=== PATIENT | female | born 1940 | race Caucasian/White ===

== ENCOUNTER 2019-03-17 11:02 | Inpatient (IN) ==
--- NOTE | 2019-03-17 11:21 | Emergency Department Note ---
Entered by Loreto West acting as a scribe for Hunter Brizuela MD History of Present Illness General Chief complaint: Shortness of Breath/Dyspnea Stated complaint: fall/ R knee pain Time Seen by Provider: 03/17/19 11:03 Source: patient Mode of arrival: EMS Limitations: no limitations History of Present Illness Provider complaint: fall Onset (ago): minute(s) Location: lower extremity and right Associated symptoms: + denies other symptoms (-congestion, -neck pain, -back pain), + shortness of breath and + other (+right leg pain); no cough The patient is a 78 year old female who presents to the Emergency Room with co mplaints of a fall that occurred just prior to arrival. Per EMS, the patient was down for approximately 10-15 minutes. The patient states that she slipped in the shower and fell and states that she twisted her right leg and could not get up on her own. The patient denies hitting her head or syncope during her fall. The patient states that she has right leg pain and shortness of breath. The patient denies any cough, congestion, neck pain, or back pain. The patient states that she has been feeling like her normal self prior to today. The patient states that she uses a walker at home. Per EMS, the patient was at 81% on room air when they arrived and got the patient up to 95% on 4L of oxygen on the way to the ED. The patient states that she does not normally wear oxygen at home. The patient denies taking any water pills or blood thinners. The patient states that she has a history of a heart attack and states that she has a defibrillator and stents. The patient also states that she has a history of colon cancer. 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 in place (Chronic) Colon cancer (Chronic) Coronary artery disease (Chronic) History of hypertension (Chronic) Cerebrovascular disease (Chronic) "stroke years ago, no residual symptoms" Surgical History Status post cholecystectomy (Chronic) Status post appendectomy (Chronic) Status post bilateral oophorectomy (Chronic) Status post partial resection of colon (Chronic) Status post coronary artery stent placement (Chronic) Status post implantation of automatic cardioverter/defibrillator (AICD) (Chr onic) Family History Other Family history unknown Social History Preferred Language: Nepalese Communication Ability: Effective Manager Aviation Required: No Beliefs That Will Affect Care: None Current Living Situation: Spouse Other Information That Helps Us Care for You: No Feels Safe at Home: Yes Safety Concerns: Feels Safe At This Time Smoking Status: Former smoker Number of Years Since Quit: 30 Hx Alcohol Use: No Hx Substance Use: No Review of Systems See HPI for pertinent positives & negatives. and A total of 10 systems reviewed and were otherwise negative Physical Exam Vital Signs Vital Signs - 24 hr 03/17/19 11:02 03/17/19 11:03 03/17/19 11:53 Temperature 36.4 C L Temperature Source Oral Sepsis Recent Fever Within 48 Hours No Sepsis Action Taken by Nursing No Action Required Pulse Rate 82 Pulse Rate [Right Finger] Respiratory Rate 20 Respiratory Effort / Characteristics Non-Labored Non-Labored Respiratory Depth Normal Respiratory Pattern Regular Blood Pressure 170/84 H Blood Pressure [Right Arm] Blood Pressure Mean 112 Blood Pressure Mean [Right Arm] Pulse Oximetry 81 L 81 L Oxygen Delivery Method Room Air Nasal Cannula Nasal Cannula Oxygen Flow Rate 4 4 03/17/19 12:09 03/17/19 14:05 03/17/19 15:43 Temperature Temperature Source Sepsis Recent Fever Within 48 Hours Sepsis Action Taken by Nursing Pulse Rate Pulse Rate [Right Finger] 78 82 80 Respiratory Rate 20 20 20 Respiratory Effort / Characteristics Non-Labored Non-Labored Respiratory Depth Normal Normal Respiratory Pattern Blood Pressure Blood Pressure [Right Arm] 139/98 Blood Pressure Mean Blood Pressure Mean [Right Arm] 111 Pulse Oximetry 98 95 97 Oxygen Delivery Method Nasal Cannula Room Air Room Air Oxygen Flow Rate 4 GENERAL: Awake, alert, uncomfortable appearing, BMI: 48.4kg/m. HENT: Normocephalic, atraumatic. TM's normal. Oropharynx unremarkable. EYES: PERRL. EOMI. Normal conjunctiva. Sclera non-icteric. NECK: Supple. No nuchal rigidity. FROM. No JVD or bruit. RESPIRATORY: Diminished breath sounds at bases, otherwise clear. CARDIAC: RRR. No murmur. ABDOMEN: Soft, non distended. No tenderness to palpation. No rebound or guarding. No masses. RECTAL: Deferred. MUSCULOSKELETAL: Unremarkable. No edema. No discoloration. Gross motor strength symmetric. LOWER EXTREMITIES: Tenderness to the right medial thigh, ROM limited secondary to pain. Left leg pain with passive ROM distal. Distal PMS BLE intact. NEURO: Normal sensorium. No sensory or motor deficits noted. SKIN: No rash or jaundice noted. LYMPH: No adenopathy. Course 1106: The patient was evaluated in room C7, and a complete history and physical examination were performed. 1320: I checked on the patient and updated her on her results. 1530: I reviewed the patient's case with Joann Pedro who will evaluate the patient for further hospitalization.. 1540: I discussed the patient's case with Dr. Mustafa - Orthopedic Surgery at [facility]. Dr. Mustafa is aware of the patient's results. Consultations Consultation #1: Joann Pedro Time: 15:30 Consultation #2: Dr. Mustafa - Orthopedic Surgery at [facility] Time: 15:40 Administered Medications Hydromorphone HCl (Dilaudid) 2 mg IV Q4 PRN PRN Reason: Pain Stop: 03/31/19 15:47 Last Admin: 03/17/19 19:21 Dose: 2 mg Documented by: [id number] Ioversol (Optiray 320 100ml) 94 ml IV ONCE PRN PRN Reason: Interaction Checking Stop: 03/21/19 14:25 Last Admin: 03/17/19 14:26 Dose: 94 ml Documented by: [id number] Discontinued Medications Lactated Ringer's (Lr) 1,000 mls @ 80 mls/hr IV .[id number] SAM Stop: 04/16/19 15:59 Last Infusion: 03/17/19 20:41 Dose: 0 mls/hr Documented by: [id number] Infusion: 03/17/19 19:29 Dose: 0 mls/hr Documented by: [id number] Admin: 03/17/19 18:07 Dose: 80 mls/hr Documented by: [id number] Medical Decision Making Differential Diagnosis Differential diagnoses include but are not limited to: fracture, dislocation, contusion, strain, ligamentous injury, tendon rupture, and septic joint. Medical Records Attestation: I reviewed the patient's medical records. Home Medications Current Medication List: was personally reviewed by me Laboratory Data Attestation: I reviewed the patient's lab results. Result diagrams: 03/17/19 11:58 03/17/19 11:58 Lab Results 03/17/19 03/17/19 03/17/19 Range/Units 11:58 11:58 11:58 WBC 11.84 H (4.8-10.8) K/uL RBC 4.27 (4.2-5.4) M/uL Hgb 12.8 (12.0-16.0) g/dL Hct 37.5 (37-47) % MCV 87.8 (80-100) fL MCH 30.0 (25-34) pg MCHC 34.1 (32-36) g/dL RDW Std Deviation 48.9 H (36.4-46.3) fL RDW Coeff of Johanne 15.3 H (11.5-14.5) % Plt Count 174 (130-400) K/uL MPV 10.1 (7.4-10.4) fL Immature Gran % (Auto) 0.8 % Neut % (Auto) 88.9 % Lymph % (Auto) 4.0 % [place] % (Auto) 5.6 % Eos % (Auto) 0.5 % Baso % (Auto) 0.2 % Immature Gran # (Auto) 0.10 H (0.00-0.02) K/uL Neut # (Auto) 10.53 H (1.4-6.5) K/uL Lymph # (Auto) 0.47 L (1.2-3.4) K/uL [place] # (Auto) 0.66 H (0.11-0.59) K/uL Eos # (Auto) 0.06 (0-0.5) K/uL Baso # (Auto) 0.02 (0-0.2) K/uL Absolute Nucleated RBC 0.11 H (0-0) K/uL Nucleated RBC % (auto) 0.9 % PT 10.1 (9.0-12.0) Seconds INR 1.0 (0.9-1.1) Sodium 142 (136-145) mmol/L Potassium 4.7 (3.5-5.1) mmol/L Chloride 109 H (98-107) mmol/L Carbon Dioxide 25 (21-32) mmol/L Anion Gap 8.0 (3-11) BUN 31 H (7-18) mg/dl Creatinine 1.22 H (0.6-1.2) mg/dl Est Cr Clr Drug Dosing 44.8 ml/min Est GFR ( Amer) 49.8 Est GFR (Non-Af Amer) 43.0 BUN/Creatinine Ratio 25.3 H (10-20) Glucose 123 H (70-99) mg/dl Calcium 9.5 (8.5-10.1) mg/dl Phosphorus 4.2 (2.5-4.9) mg/dl Magnesium 2.3 (1.8-2.4) mg/dl Total Bilirubin 0.6 (0.2-1) mg/dl Direct Bilirubin 0.2 (0-0.2) mg/dl AST 29 (15-37) U/L ALT 20 (12-78) U/L Alkaline Phosphatase 70 (45-117) U/L Troponin I 0.038 (0-0.045) ng/ml NT-Pro-B Natriuret Pep 2560 H (0-1800) pg/ml Total Protein 7.2 (6.4-8.2) gm/dl Albumin 3.5 (3.4-5.0) gm/dl Globulin 3.7 (2.5-4.0) gm/dl Albumin/Globulin Ratio 1.0 (0.9-2) Lipase 151 (73-393) U/L TSH 5.500 H (0.300-4.500) uIu/ml Free T4 1.35 (0.8-1.6) ng/dl Specimen Hemolysis Imaging Data Radiologist's Impression: Radiology results as stated below per my review and the radiologist's interpretation: XR chest 1V portable CLINICAL HISTORY: Chest Pain COMPARISON STUDY: 12/17/2013 FINDINGS: Increased density left base. Mild stable cardiomegaly. Unipolar cardiac pacemaker in good position. Mid and upper lungs are clear. IMPRESSION: Infiltrate left base. The above report was generated using voice recognition software. It may contain grammatical, syntax or spelling errors. Electronically signed by: Fazal Garza M.D. 03/17/2019 1:04 PM XR femur LT 2V routine CLINICAL HISTORY: pain fall COMPARISON: None. DISCUSSION: Limited exam as the patient did not tolerate positioning change. High suspicion of fracture of the left femoral neck. Remainder the femur is un remarkable. There is no evidence for soft tissue swelling. IMPRESSION: Limited study suggesting a fracture of the left femoral neck. The above report was generated using voice recognition software. It may contain grammatical, syntax or spelling errors. Electronically signed by: Fazal Garza M.D. 03/17/2019 1:06 PM XR femur RT 2V routine CLINICAL HISTORY: pain fall COMPARISON: None. DISCUSSION: Oblique angled fracture distal femoral shaft. Mild angulation is at 2 cm maximum distraction. Significant degenerative change of the right hip as well as right knee. There is no evidence for soft tissue swelling. IMPRESSION: Oblique moderately angled fracture distal femoral shaft. The above report was generated using voice recognition software. It may contain grammatical, syntax or spelling errors. Electronically signed by: Fazal Garza M.D. 03/17/2019 1:03 PM XR knee LT 2V routine CLINICAL HISTORY: pain fall COMPARISON: None. DISCUSSION: Significant degenerative change all major joint compartments. No specific abnormality of the knee. There is no evidence for soft tissue swelling. IMPRESSION: General degenerative change. No acute process The above report was generated using voice recognition software. It may contain grammatical, syntax or spelling errors. Electronically signed by: Fazal Garza M.D. 03/17/2019 1:06 PM XR knee RT 2V routine CLINICAL HISTORY: pain fall COMPARISON: None. DISCUSSION: Oblique fracture distal right femur. Considerable degenerative change right knee. There is no evidence for soft tissue swelling. Bony distraction cyst measures 2 cm. IMPRESSION: Oblique fracture distal femur. Moderate degenerative change specifically of the knee. The above report was generated using voice recognition software. It may contain grammatical, syntax or spelling errors. Electronically signed by: Fazal Garza M.D. 03/17/2019 1:[address] cervical spine wo con CT DOSE: 3508.08 mGy.cm HISTORY: Trauma. Pain. pain fall TECHNIQUE: Multiaxial CT images of the cervical spine were performed and reformatted in the sagittal and coronal plane without the use of contrast. A dose lowering technique was utilized adhering to the principles of ALARA. COMPARISON: None. FINDINGS: No fractures. No subluxation. Prevertebral soft tissues and the C1-C2 interval are intact. No pneumothorax. Degenerative change. Osteoporosis IMPRESSION: 1. No acute bony abnormality. 2. Significant degenerative disc change throughout. 3. Osteoporosis. The above report was generated using voice recognition software. It may contain grammatical, syntax or spelling errors. Electronically signed by: Fazal Garza M.D. 03/17/2019 2:[address] head/brain wo con CT DOSE: HISTORY: Trauma. Mental status change. pain fall TECHNIQUE: Multiaxial CT images of the head were performed without the use of intravenous contrast. A dose lowering technique was utilized adhering to the principles of ALARA. Comparison: None. Findings: The paranasal sinuses and mastoid air cells are clear. The calvarium and skull base are intact. The ventricles and sulci are within normal limits. There is no mass, hematoma, midline shift, or acute infarct. Age-related chronic small vessel change and atrophy Impression: No acute intracranial abnormality. Age-related change. The above report was generated using voice recognition software. It may contain grammatical, syntax or spelling errors. Electronically signed by: Fazal Garza M.D. 03/17/2019 2:[address] chest w con CT DOSE: HISTORY: Trauma pain fall, hypoxia TECHNIQUE: Multiaxial CT images of the chest were performed following the intravenous administration of contrast. A dose lowering technique was utilized adhering to the principles of ALARA. COMPARISON: None. FINDINGS: The lungs are clear. The mediastinal vascular structures are within normal limits. No mediastinal or hilar lymphadenopathy. No pleural effusion or pneumothorax. Limited views of the upper abdomen demonstrate a normal liver and spleen. IMPRESSION: No significant abnormality identified within the chest. The above report was generated using voice recognition software. It may contain grammatical, syntax or spelling errors. Electronically signed by: Fazal Garza M.D. 03/17/2019 2:[address] abd pelvis IV con only CT DOSE: HISTORY: Pain pain fall TECHNIQUE: Multiaxial CT images of the abdomen and pelvis were performed following the use of intravenous contrast. A dose lowering technique was utilized adhering to the principles of ALARA. COMPARISON STUDY: 12/17/2013 FINDINGS: Lung bases are clear. Liver spleen and pancreas enhance uniformly. Kidneys negative for hydronephrosis. Operative findings consistent with prior appendectomy, larger colectomy, as well as a left-sided ostomy are again noted. Multiple bowel loops are present within the subcutaneous fat all these appear to be nonobstructive. No evidence for acute posttraumatic change. Stable postoperative changes of the soft tissue pelvis and presacral region. 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 Significant degenerative change of the hips bilaterally. No evidence for acute bony pathology. IMPRESSION: 1. Extensive chronic and postoperative multifocal changes. 2. No acute posttraumatic abnormality of the abdomen or pelvis. The above report was generated using voice recognition software. It may contain grammatical, syntax or spelling errors. Electronically signed by: Fazal Garza M.D. 03/17/2019 2:47 PM ECG Data Attestation: I personally reviewed and interpreted this ECG as follows: Indication: SOB/dyspnea Rate (beats per minute): 85 Rhythm: normal sinus Findings: + other (normal axis ); no acute ischemic change Blood Pressure Blood Pressure Findings: Normal blood pressure MDM Narrative The patient is a pleasant 78 y/o woman with a pmhx of CAD s/p PCI and PPM/AICD, colon cancer s/p colostomy remotely who presents to the emergency department with mechanical fall in the shower c/o right knee pain and found to be hypoxic to 80% on RA by EMS per HPI. On arrival the patient is in NAD, AFVSS. She will become hypoxic to 80s on RA and thus continued on 4L NC. EKG unremarkable without evidence of acute ischemia. CXR negative. WBC, 11.8, nonspecific. H/H and platelets wnl. Cr. 1.22 without recent values for comparison. Chemistry without acidosis. Troponin 0.038. BNP 2560 without prior values for comparison. [employer] pacemaker interrogation performed and was unremarkable. I discussed with [employer] electrical equipment technician over the phone and there was no evidence of any concerning bradycardic or tachycardic arrhythmias. Plain films demonstrates right distal femur fx with ~2cm displacement. Question of left femoral neck fracture further clarified on CT, which showed no fracture. CT h ead, cspine, chest, and abd pelvis negative for acute findings. Unclear etiology to patient's hypoxia at this time time. Suspect likely related patient's body habitus, positioning, and pain related to her fall. Duplex ordered to exclude thrombus though thought to be less likely. Case was discussed with Joann Kim, [facility] PAC, and Dr. Scott, [facility] hospitalist will admit patient for further management. Case also reviewed with Dr. Mustafa, Orthopedics on-call, who is aware of patient pending inpatient team consultation. Impression & Plan Femur fracture, right, Hypoxia Discharge Plan Visit Data *Final* Discharge Date/Time: 03/17/19 17:38 Chief Complaint: Shortness of Breath/Dyspnea Stated Complaint: fall/ R knee pain ED Provider: Hunter Brizuela Discharge Problem: Femur fracture, right, Hypoxia Patient Disposition: Admitted As Inpatient Discharge Instructions Interventions: ED Discharge Assessment Last Done: 03/17/19 17:38 The scribe's documentation has been prepared under my direction and personally reviewed by me in its entirety. I confirm that the note above accurately reflects all work, treatment, procedures, and medical decision making performed by me.
[2019-03-17 12:22] LABS: Prothrombin Time 10.1 Seconds (9.0-12.0)
[2019-03-17 12:29] LABS: Hematocrit (blood only) 37.5 % (37-47); Hemoglobin 12.8 g/dL (12.0-16.0); Mean Corpuscular Hgb Conc 34.1 g/dL (32-36); Mean Corpuscular Volume 87.8 fL (80-100); Mean Platelet Volume 10.1 fL (7.4-10.4); Nucleated RBC # (auto) 0.11 K/uL (0-0); Nucleated RBC % (auto) 0.9 %; Platelet Count 174 K/uL (130-400); RDW Coefficient of Variation 15.3 % (11.5-14.5); RDW Standard Deviation 48.9 fL (36.4-46.3); Red Blood Count 4.27 M/uL (4.2-5.4); White Blood Count 11.84 K/uL (4.8-10.8)
[2019-03-17 12:30] LABS: Basophils # (auto) 0.02 K/uL (0-0.2); Basophils % (auto) 0.2 %; Eosinophils # (auto) 0.06 K/uL (0-0.5); Eosinophils % (auto) 0.5 %; Immature Granulocytes % (auto) 0.8 %; Lymphocytes # (auto) 0.47 K/uL (1.2-3.4); Monocytes # (auto) 0.66 K/uL (0.11-0.59); Monocytes % (auto) 5.6 %; Neutrophils # (auto) 10.53 K/uL (1.4-6.5); Neutrophils % (auto) 88.9 %
[2019-03-17 12:33] LABS: Albumin Level 3.5 gm/dl (3.4-5.0); BUN Creatinine Ratio 25.3 (10-20); Calcium 9.5 mg/dl (8.5-10.1); Creatinine Clr Calc Pharmacy 44.8 ml/min; Est GFR (African American) 49.8; Magnesium 2.3 mg/dl (1.8-2.4); Potassium 4.7 mmol/L (3.5-5.1)
[2019-03-17 12:39] LABS: Bilirubin,Total 0.6 mg/dl (0.2-1); Globulin 3.7 gm/dl (2.5-4.0); Phosphorus 4.2 mg/dl (2.5-4.9); Total Protein 7.2 gm/dl (6.4-8.2); Troponin I 0.038 ng/ml (0-0.045)
[2019-03-17 12:43] LABS: Bilirubin Direct 0.2 mg/dl (0-0.2)
[2019-03-17 12:55] LABS: T4 Free Thyroxine 1.35 ng/dl (0.8-1.6)
--- NOTE | 2019-03-17 13:05 | XRay Report ---
XR knee RT 2V routine CLINICAL HISTORY: pain fall COMPARISON: None. DISCUSSION: Oblique fracture distal right femur. Considerable degenerative change right knee. There i s no evidence for soft tissue swelling. Bony distraction cyst measures 2 cm. IMPRESSION: Oblique fracture distal femur. Moderate degenerative change specifically of the knee. The above report was generated using voice recognition software. It may contain grammatical, syntax or spelling errors. Electronically signed by: Fazal Garza M.D. 03/17/2019 1:02 PM
--- NOTE | 2019-03-17 13:05 | XRay Report ---
XR femur RT 2V routine CLINICAL HISTORY: pain fall COMPARISON: None. DISCUSSION: Oblique angled fracture distal femoral shaft. Mild angulation is at 2 cm maximum distract ion. Significant degenerative change of the right hip as well as right knee. There is no evidence for soft tissue swelling. IMPRESSION: Oblique moderately angled fracture distal femoral shaft. The above report was generated using voice recognition software. It may contain grammatical, syntax or spelling errors. Electronically signed by: Fazal Garza M.D. 03/17/2019 1:03 PM
--- NOTE | 2019-03-17 13:06 | XRay Report ---
XR chest 1V portable CLINICAL HISTORY: Chest Pain COMPARISON STUDY: 12/17/2013 FINDINGS: Increased density left base. Mild stable cardiomegaly. Unipolar cardiac pacemaker in good p osition. Mid and upper lungs are clear. IMPRESSION: Infiltrate left base. The above report was generated using voice recognition software. It may contain grammatical, syntax or spelling errors. Electronically signed by: Fazal Garza M.D. 03/17/2019 1:04 PM
--- NOTE | 2019-03-17 13:07 | XRay Report ---
XR femur LT 2V routine CLINICAL HISTORY: pain fall COMPARISON: None. DISCUSSION: Limited exam as the patient did not tolerate positioning change. High suspicion of fractu re of the left femoral neck. Remainder the femur is unremarkable. There is no evidence for soft tissu e swelling. IMPRESSION: Limited study suggesting a fracture of the left femoral neck. The above report was generated using voice recognition software. It may contain grammatical, syntax or spelling errors. Electronically signed by: Fazal Garza M.D. 03/17/2019 1:06 PM
--- NOTE | 2019-03-17 13:08 | XRay Report ---
XR knee LT 2V routine CLINICAL HISTORY: pain fall COMPARISON: None. DISCUSSION: Significant degenerative change all major joint compartments. No specific abnormality of the knee. There is no evidence for soft tissue swelling. IMPRESSION: General degenerative change. No acute process The above report was generated using voice recognition software. It may contain grammatical, syntax or spelling errors. Electronically signed by: Fazal Garza M.D. 03/17/2019 1:06 PM
[2019-03-17] MEDS ORDERED: IOVERSOL 100ml IV PRN (14:26)
--- NOTE | 2019-03-17 14:40 | CT Scan Report ---
CT head/brain wo con CT DOSE: HISTORY: Trauma. Mental status change. pain fall TECHNIQUE: Multiaxial CT images of the head were performed without the use of intravenous contrast. A dose lowering technique was utilized adhering to the principles of ALARA. Comparison: None. Findings: The paranasal sinuses and mastoid air cells are clear. The calvarium and skull base are int act. The ventricles and sulci are within normal limits. There is no mass, hematoma, midline shift, or acute infarct. Age-related chronic small vessel change and atrophy Impression: No acute intracranial abnormality. Age-related change. The above report was generated using voice recognition software. It may contain grammatical, syntax or spelling errors. Electronically signed by: Fazal Garza M.D. 03/17/2019 2:39 PM
--- NOTE | 2019-03-17 14:42 | CT Scan Report ---
CT cervical spine wo con CT DOSE: 3508.08 mGy.cm HISTORY: Trauma. Pain. pain fall TECHNIQUE: Multiaxial CT images of the cervical spine were performed and reformatted in the sagittal and coronal plane without the use of contrast. A dose lowering technique was utilized adhering to th e principles of ALARA. COMPARISON: None. FINDINGS: No fractures. No subluxation. Prevertebral soft tissues and the C1-C2 interval are intact. No pneumothorax. Degenerative change. Osteoporosis IMPRESSION: 1. No acute bony abnormality. 2. Significant degenerative disc change throughout. 3. Osteoporosis. The above report was generated using voice recognition software. It may contain grammatical, syntax or spelling errors. Electronically signed by: Fazal Garza M.D. 03/17/2019 2:41 PM
--- NOTE | 2019-03-17 14:44 | CT Scan Report ---
CT chest w con CT DOSE: HISTORY: Trauma pain fall, hypoxia TECHNIQUE: Multiaxial CT images of the chest were performed following the intravenous administration of contrast. A dose lowering technique was utilized adhering to the principles of ALARA. COMPARISON: None. FINDINGS: The lungs are clear. The mediastinal vascular structures are within normal limits. No media stinal or hilar lymphadenopathy. No pleural effusion or pneumothorax. Limited views of the upper abdo men demonstrate a normal liver and spleen. IMPRESSION: No significant abnormality identified within the chest. The above report was generated using voice recognition software. It may contain grammatical, syntax or spelling errors. Electronically signed by: Fazal Garza M.D. 03/17/2019 2:42 PM
--- NOTE | 2019-03-17 14:48 | CT Scan Report ---
CT abd pelvis IV con only CT DOSE: HISTORY: Pain pain fall TECHNIQUE: Multiaxial CT images of the abdomen and pelvis were performed following the use of intrave nous contrast. A dose lowering technique was utilized adhering to the principles of ALARA. COMPARISON STUDY: 12/17/2013 FINDINGS: Lung bases are clear. Liver spleen and pancreas enhance uniformly. Kidneys negative for hydronephrosis. Operative findings consistent with prior appendectomy, larger colectomy, as well as a left-sided osto my are again noted. Multiple bowel loops are present within the subcutaneous fat all these appear to be nonobstructive. No evidence for acute posttraumatic change. Stable postoperative changes of the soft tissue pelvis and presacral region. 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 Significant degenerative change of the hips bilaterally. No evidence for a cute bony pathology. IMPRESSION: 1. Extensive chronic and postoperative multifocal changes. 2. No acute posttraumatic abnormality of the abdomen or pelvis. The above report was generated using voice recognition software. It may contain grammatical, syntax or spelling errors. Electronically signed by: Fazal Garza M.D. 03/17/2019 2:47 PM
[2019-03-17] MEDS ORDERED: HYDROmorphone INJ 1 MG/ML SYRINGE IV PRN (15:49)
[2019-03-17] MEDS ORDERED: SODIUM CHLORIDE 0.9% 250 ML IV PRN (15:55)
[2019-03-17] MEDS ORDERED: LACTATED RINGER'S 1,000 ML IV SCH (16:00)
--- NOTE | 2019-03-17 16:48 | History & Physical Report ---
Date of Service March 17, 2019 Assessment & Plan (1) Femur fracture, right: Pt presented with mechanical fall while in shower today. Denies hitting head or LOC or SOB/CP/dizziness prior to fall. Pt was unable to get up and c/o R knee pain. R FEMUR XRAY: Oblique moderately angled fracture distal femoral shaft. L FEMUR XRAY: Limited study suggesting a fracture of the left femoral neck. R KNEE XRAY: General degenerative change. No acute process CT HEAD: No acute intracranial abnormality. CT C-SPINE: No acute bony abnormality. -obtain CT hip to further clarify if there is left femoral neck fracture -Bedrest -Dilaudid prn pain -Ortho consult -Pt moderate surgical risk -Anesthesia consult (2) Hypoxia: Pt was found by EMS to have O2 sat 80% by EMS today. In ER 81% on RA and increased to 98% on 4L. CT CHEST WITH CONTRAST: Lungs are clear. No significant abnormality identified within the chest. (Was not PE study) Pt denies any SOB or CP. Was able to wean supplemental oxygen to 1L NC while in ER with oxygen sats at 95% May be secondary to pain, obesity hypoventilation. CT Chest was not PE study. -pending venous dopplers of BLE to r/o DVT -supplemental oxygen, wean as able -monitor (3) Renal insufficiency: Cr: 1.22, GFR: 43 Unknown baseline -gentle IVF -obtain outside records (4) Coronary artery disease: (5) Cardiac defibrillator in place: Hx AL in 2006. Pt reports had to have shock. S/P stent. Had ICD placed, no reported firings since placement. -Unsure if pt has cardiomyopathy? or what her baseline EF is -Obtain outside records -Pt not on any antiplatelet, beta blockers or statin -Echo pending (6) Colon cancer: S/P chemo, radiation, colostomy No abdominal pain, increased stool output (7) Hypothyroidism: TSH: 5.5 -continue levothyroxine DVT Prophylaxis -SCDs in case of procedure Full Code as per discussion with pt Follows with Dr Romero in [place] for routine care Pt was seen with Dr Scott. See addendum for further assessment and plan. History of Present Illness Chief Complaint: Fall, R leg pain Primary Care Provider: Deyanira Romero MD Pt is 78 y/o F with PMH HTN, CAD s/p stent, s/p ICD, colon CA s/p chemo & radiation & colostomy, hypothyroidism, lymphedema BLE presented to ER with complaint of fall and right leg pain. Patient states slipped while in shower today causing her to fall and then had right knee pain. Patient was unable to get herself up out of the bathtub. Patient denies hitting her head. Denies any loss of consciousness. Denies any chest pain, shortness of breath, dizziness. Denies any firing of ICD. Patient states ambulates with the use of walker or cane. Patient denies any pain to hip, ankle or foot. Denies any other noted injury or pain. EMS arrived and found patient to be hypoxic with a oxygen saturation of 80 on room air. Patient denies any history of COPD or lung problems and is not oxygen dependent at home. Patient reports that she was sh allow breathing after fall secondary to pain and she was unable to get herself up. Denies history of heart failure, known kidney problems, diabetes. Denies any recurrent or recent CP or SOB. Denies fever/chills, diaphoresis, N/V/D/C, ROSALES, dizziness, syncope, vision changes, neck pain, CP, SOB, orthopnea, palpitations, cough, sore throat, choking, otalgia, rhinorrhea, abdominal pain, paresthesias, weakness, extremity weakness, extremity edema, rashes, urinary symptoms. Allergies Allergy/AdvReac Type Severity Reaction Status Date / Time naproxen Allergy feet Unverified 03/17/19 12:33 swelling acetaminophen AdvReac Unknown NAUSEA Verified 03/17/19 12:33 oxycodone AdvReac Unknown NAUSEA Verified 03/17/19 12:33 clonidine AdvReac NAUSEA Verified 03/17/19 12:33 Home Medications Home Medications Medication Instructions Recorded Confirmed Type ibuprofen [Advil] 600 mg PO Q6H PRN 03/17/19 03/17/19 History levothyroxine 75 mcg PO QAM 03/17/19 03/17/19 History Past Med/Surg History Medical History Hypothyroidism (Chronic) Cardiac defibrillator in place (Chronic) Cardiac defibrillator in place (Chronic) Colon cancer (Chronic) Coronary artery disease (Chronic) History of hypertension (Chronic) Cerebrovascular disease (Chronic) "stroke years ago, no residual symptoms" Surgical History Status post cholecystectomy (Chronic) Status post appendectomy (Chronic) Status post bilateral oophorectomy (Chronic) Status post partial resection of colon (Chronic) Status post coronary artery stent placement (Chronic) Status post implantation of automatic cardioverter/defibrillator (AICD) (Chronic) Family History Other Family history unknown Social History Preferred Language: Sinhala Communication Ability: Effective 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 Beliefs That Will Affect Care: None Current Living Situation: Spouse Other Information That Helps Us Care for You: No Feels Safe at Home: Yes Safety Concerns: Feels Safe At This Time Smoking Status: Former smoker Number of Years Since Quit: 30 Hx Alcohol Use: No Hx Substance Use: No Review of Systems Review of Systems: All systems reviewed & are unremarkable except as noted in HPI & below Physical Exam Physical Exam: General: no acute distress, lying supine in bed, morbidly obese Head: normocephalic, atraumatic Eyes: PERRL, EOM's intact, conjunctiva non-injected, anicteric ENT: normal inspection external ears, nose, mucous membranes moist Neck: supple, trachea midline Lungs: clear, no respiratory distress, no wheezing/rhonchi/rales CV: RRR, no murmur Abd: normal BS, soft, non-tender Ext: RLE: +ecchymosis to distal aspect of upper leg, No tenderness to palpation of hip or thigh, ankle, or foot. +tenderness to palpation distal femur and anterior knee. No ROM attempted. sensation to light touch intact, brisk capillary refill. Bilateral lower extremities with lymphedema. LLE: no hip/leg/knee/ankle/foot tenderness to palpation. Bilateral upper arms non-tender with ROM intact. Neuro: A&O x 3, no focal deficits noted, normal affect Skin: warm, dry Results & Data Vital Signs (Past 12 Hours) Vital Signs Temp Pulse Pulse Resp BP BP Pulse Ox 03/17/19 15:43 80 20 97 03/17/19 14:05 82 20 95 03/17/19 12:09 78 20 139/98 98 03/17/19 11:03 81 L 03/17/19 11:02 36.4 C L 82 20 170/84 H 81 L Laboratory Results Short CBC 03/17/19 Range/Units 11:58 WBC 11.84 H (4.8-10.8) K/uL Hgb 12.8 (12.0-16.0) g/dL Hct 37.5 (37-47) % Plt Count 174 (130-400) K/uL BMP 03/17/19 11:58 Sodium 142 Potassium 4.7 Chloride 109 H Carbon Dioxide 25 BUN 31 H Creatinine 1.22 H Glucose 123 H Calcium 9.5 Cardiac Enzymes 03/17/19 Range/Units 11:58 Troponin I 0.038 (0-0.045) ng/ml Liver Function 03/17/19 Range/Units 11:58 Total Bilirubin 0.6 (0.2-1) mg/dl Direct Bilirubin 0.2 (0-0.2) mg/dl AST 29 (15-37) U/L ALT 20 (12-78) U/L Alkaline Phosphatase 70 (45-117) U/L Albumin 3.5 (3.4-5.0) gm/dl Diagnostic Findings CT HEAD: Impression: No acute intracranial abnormality. Age-related change CT C-SPINE: IMPRESSION: 1. No acute bony abnormality. 2. Significant degenerative disc change throughout. 3. Osteoporosis. CXR: IMPRESSION: Infiltrate left base. CT CHEST WITH CONTRAST: IMPRESSION: Lungs are clear. No significant abnormality identified within the chest. CT ABD/PELVIS: IMPRESSION: 1. Extensive chronic and postoperative multifocal changes. 2. No acute posttraumatic abnormality of the abdomen or pelvis. R FEMUR XRAY: IMPRESSION: Oblique moderately angled fracture distal femoral shaft. R KNEE XRAY: IMPRESSION: General degenerative change. No acute process ECG Rate (beats per minute): 85 Additional Comments: EKG read by cardiology: Normal sinus rhythm Left atrial enlargement Borderline ECG When compared with ECG of 16-DEC-2013 23:58, QRS duration has decreased Otherwise no significant change Confirmed by Julian Morejon ([id number]) on 03/17/2019 3:45:24 PM Supervising Physician Co-Signing Physician Notes ATTENDING ADDENDUM: Patient seen and examined, care coordinated with Joann Kim PA-C. This is a 78-year-old female follows with Dr Delgadillo in [facility] past medical history AL, status post PTCA approximately 12 years back Status post AICD-unknown EF /LV function ( pt does not follow with cardiology locally ) History of colon ca status post chemo/radiation/surgery with colostomy Brought to ER this morning, as patient sustained a fall/slipped in shower, leading to right femur fracture Patient is alert and orientedx3 during interview states she was taking shower, slipped on soap and water in the bathtub, experie nced significant pain on the right leg, EMS was called, managed to get her out from bathtub Patient was noted to be hypoxic by EMS, with oxygen saturation 81% on room air, improved to 95 to 4 L oxygen supplement Patient denies of any headache, dizzy spells, no shortness of breath, no chest pain prior to the fall, Did not hit her head, did not consciousness In ER x-ray showed right distal femur fracture with mild angulation Patient hypoxia resolved, oxygen saturation remained more than 95% on 1 L O2 supplement( cause of hypoxia possibly due to pain /unable to take deep breath ) Physical exam: please referred to physical exam done by Joann Kim PA-C vitals remains stable Assessment plan: RIGHT DISTAL FEMUR FRACTURE: Appears to be purely mechanical/accidental fall/leading to traumatic fracture of the right distal femur Xray shows possible left femur neck fracture, CT of pelvis ordered Orthopedics consulted, plan of care discussed with orthopedics and anesthesiolog y Patient is a moderate to low risk for hip surgery given age, history of coronary disease no recent angina Order for resting echo to Assess LV function Patient denies of any AICD firing last few years not on any Aspirin /Plavix , no diuretics -Lasix or ACEi /ARB in medication list vol status difficult to assess due to body habitus Ordered for stat echocardiogram, discussed with on-call cardiology, echo should be read by today or early tomorrow morning Monitor in medical telemetry, N.p.o. past midnight, plan for possible orthopedic surgery in a.m. DVT prophylaxis: SCD and teds Patient will need pharmacological DVT prophylaxis as per orthopedics protocol post surgery Please refer to further documentation by Joann Kim PA-C for discussion of other chronic issues Annia Scott MD (1) Femur fracture, right Encounter type: initial encounter Femur location: shaft Fracture morphology: unspecified fracture morphology Fracture type: closed Qualified Code(s): S72.301A - Unspecified fracture of shaft of right femur, initial encounter for closed fracture
--- NOTE | 2019-03-17 17:44 | Anesthesiology Consultation ---
Date of Service March 17, 2019 History Height/Weight Height: 5 ft Weight: 112.5 kg Allergies Allergy/AdvReac Type Severity Reaction Status Date / Time naproxen Allergy feet Unverified 03/17/19 12:33 swelling acetaminophen AdvReac Unknown NAUSEA Verified 03/17/19 12:33 oxycodone AdvReac Unknown NAUSEA Verified 03/17/19 12:33 clonidine AdvReac NAUSEA Verified 03/17/19 12:33 Medications Home Medications Medication Instructions Recorded Confirmed Last Taken ibuprofen [Advil] 600 mg PO Q6H PRN 03/17/19 03/17/19 03/17/19 06:00 levothyroxine 75 mcg PO QAM 03/17/19 03/17/19 03/17/19 Active Medications Generic Name Dose Route Start Last Admin Trade Name Freq PRN Reason Stop Dose Admin Ioversol 94 ml 03/17/19 14:26 03/17/19 14:26 Optiray 320 100ml IV 03/21/19 14:25 94 ml ONCE PRN Administration Interaction Checking Past Medical History Medical History Hypothyroidism (Chronic) Cardiac defibrillator in place (Chronic) Cardiac defibrillator in place (Chronic) Colon cancer (Chronic) Coronary artery disease (Chronic) History of hypertension (Chronic) Cerebrovascular disease (Chronic) "stroke years ago, no residual symptoms" Past Family History Family History Other Family history unknown Past Surgical History Surgical History Status post cholecystectomy (Chronic) Status post appendectomy (Chronic) Status post bilateral oophorectomy (Chronic) Status post partial resection of colon (Chronic) Status post coronary artery stent placement (Chronic) Status post implantation of automatic cardioverter/defibrillator (AICD) (Chronic) Social History Smoking Status: Former smoker Hx Alcohol Use: No Hx Substance Use: No Physical Exam Vital Signs Last Vital Signs Temp 36.4 C L 03/17/19 11:02 Pulse 80 03/17/19 15:43 Resp 20 03/17/19 15:43 BP 139/98 03/17/19 12:09 Pulse Ox 97 03/17/19 15:43 Testing Electrocardiogram Date: 03/17/19 Findings: + NSR @ (85 BPM) LAE Other Testing Chest CT 03/17/2019 : No definite abnormality.
[2019-03-17] MEDS ORDERED: MAGNESIUM HYDROXIDE SUSP 30 ML UDC PO PRN (17:53)
[2019-03-17] MEDS ORDERED: ONDANSETRON INJ 2 MG/ML 2 ML VIAL IV PRN (17:53)
[2019-03-17] MEDS ORDERED: POLYETHYLENE (MIRALAX) 17 GM PACK PO PRN (17:53)
[2019-03-17] MEDS ORDERED: NITROGLYCERIN SL 0.4 MG/TAB TAB SL PRN (17:53)
[2019-03-17] MEDS ORDERED: ALUMINUM/MAGNESIUM SUSP 30 ML UDC PO PRN (17:53)
--- NOTE | 2019-03-17 17:53 | Anesthesiology Consultation ---
Date of Service March 17, 2019 Assessment & Plan (1) Encounter for pre-operative examination: Chart Review Chart Review: Acceptable Risk for Surgery and Patient NOT seen in Pre Admission Testing Consults Requested medical & cardiac Echocardiogram pending at this time. ASA ASA4 Proposed Anesthesia Anesthesia Type: General (The patient does not want neuraxial anesthesia.) History Height/Weight Height: 5 ft Weight: 112.5 kg Allergies Allergy/AdvReac Type Severity Reaction Status Date / Time naproxen Allergy feet Unverified 03/17/19 12:33 swelling acetaminophen AdvReac Unknown NAUSEA Verified 03/17/19 12:33 oxycodone AdvReac Unknown NAUSEA Verified 03/17/19 12:33 clonidine AdvReac NAUSEA Verified 03/17/19 12:33 Medications Home Medications Medication Instructions Recorded Confirmed Last Taken ibuprofen [Advil] 600 mg PO Q6H PRN 03/17/19 03/17/19 03/17/19 06:00 levothyroxine 75 mcg PO QAM 03/17/19 03/17/19 03/17/19 Active Medications Generic Name Dose Route Start Last Admin Trade Name Freq PRN Reason Stop Dose Admin Ioversol 94 ml 03/17/19 14:26 03/17/19 14:26 Optiray 320 100ml IV 03/21/19 14:25 94 ml ONCE PRN Administration Interaction Checking Past Medical History Medical History Hypothyroidism (Chronic) Cardiac defibrillator in place (Chronic) Cardiac defibrillator in place (Chronic) Colon cancer (Chronic) Coronary artery disease (Chronic) History of hypertension (Chronic) Cerebrovascular disease (Chronic) "stroke years ago, no residual symptoms" Past Family History Family History Other Family history unknown Past Surgical History Surgical History Status post cholecystectomy (Chronic) Status post appendectomy (Chronic) Status post bilateral oophorectomy (Chronic) Status post partial resection of colon (Chronic) Status post coronary artery stent placement (Chronic) Status post implantation of automatic cardioverter/defibrillator (AICD) (Chronic) Social History Smoking Status: Former smoker Hx Alcohol Use: No Hx Substance Use: No Physical Exam Vital Signs Last Vital Signs Temp 36.4 C L 03/17/19 11:02 Pulse 88 03/17/19 17:38 Resp 20 03/17/19 17:38 BP 139/98 03/17/19 12:09 Pulse Ox 96 03/17/19 17:38
[2019-03-17] MEDS: HYDROmorphone INJ 2 MG/ML SYR/VIAL IV PRN (19:21)
--- NOTE | 2019-03-17 20:25 | Ultrasound Report ---
US venous doppler LE BI HISTORY: Pain hypoxia COMPARISON STUDY: None. FINDINGS: There is normal compressibility, flow, and augmentation within the bilateral lower extremit y deep venous systems. Limited exam as the patient could not tolerate adequate compression IMPRESSION: No DVT within the right or left lower extremity. Limited exam as the patient could not tolerate compr ession The above report was generated using voice recognition software. It may contain grammatical, syntax or spelling errors. Electronically signed by: Fazal Garza M.D. 03/17/2019 8:24 PM
--- NOTE | 2019-03-17 20:57 | CT Scan Report ---
CT femur RT wo con CT DOSE: 1975.55 mGy.cm HISTORY: Trauma. Fracture. CT distal femur assess fracture pattern for surger TECHNIQUE: Multiaxial CT images of the right femur were performed and reformatted in the sagittal and coronal plane without the use of contrast. A dose lowering technique was utilized adhering to the p rinciples of NORI. COMPARISON: None. FINDINGS: Blank angled fracture distal femoral shaft. There is a 1.3 cm of overlap. There is anterior to posterior distraction of 1.1 cm. There is additional nondisplaced cortical fracture of the distal femoral metaphysis. No evidence for involvement of the knee. Considerable degenerative change of the hip with no acute ab normality at that site. IMPRESSION: 1. Comminuted angled fracture distal femoral shaft. 2. Overlap is 1.3 cm with anterior to posterior distraction of 1.1 cm. 3. Additional nondisplaced cortical fracture distal femoral metaphysis The above report was generated using voice recognition software. It may contain grammatical, syntax or spelling errors. Electronically signed by: Fazal Garza M.D. 03/17/2019 8:55 PM
--- NOTE | 2019-03-17 20:58 | Consultation Report ---
DATE OF CONSULTATION: 03/17/2019 INPATIENT STAT CARDIOLOGY CONSULTATION CONSULTATION REQUESTED BY: Dr. Scott. REASON FOR CONSULTATION: Preop risk assessment prior to undergoing hip fracture repair. HISTORY OF PRESENT ILLNESS: Mrs. Lane is a 78-year-old woman who has never been seen within the [facility] before and has always followed with a sow farm manager in [place]. She was unable to provide the name or the last time she has been seen by the sow farm manager. She presented to [facility] Emergency Department on 03/17/2019 with a report of fall while in the shower. After the fall, the patient was unable to get up with a complaint of right knee pain. Upon presentation in the Emergency Room, she was found to have a fracture of her right femoral shaft and she was admitted. She was also found to be hypoxic on presentation. I received a call by Dr. Scott stating the patient was to go to the OR first thing in the morning with Dr. Mustafa and that a stat echocardiogram was required. The patient voiced that she has a history of heart problems but was unable to accurately or sufficiently describe them. Clinically, she denies any recent issues with chest pain, shortness of breath, palpitations, lightheadedness, dizziness, or syncope. She states that the only activity is she does in her home and there are no steps within her home. She states that she had a heart attack about 10 years ago and she thinks she had a stent placed at that time or possibly heart surgery and she had a defibrillator placed. She does not know the last time she was seen by a sow farm manager. She does not know who checks her defibrillator, but she verbalized that she believes it is checked every day. She takes no cardiac medications whatsoever. I called the patient's power of tone artist apprentice, her with her permission after she voiced concern that I would only upset him. Her , Christopher, states that he remembers that she had a heart attack years ago but has not seen a heart doctor in several years. The patient verbalized that she believes her EF is around 30%. PAST SURGICAL HISTORY: 1. Cholecystectomy. 2. Appendectomy. 3. Oophorectomy. 4. Partial colectomy. 5. Questionable PCI to unknown vessel. 6. 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 No sternotomy scar is present on examination. MEDICAL ILLNESSES: 1. Coronary artery disease with questionable history of NM. 2. Status post ICD placement. 3. Colon cancer. 4. Hypertension. 5. History of CVA. FAMILY HISTORY: Noncontributory given the age. SOCIAL HISTORY: The patient is a former smoker. Denies any alcohol or recreational drug use. She lives at home with her . REVIEW OF SYSTEMS: As per HPI, all other review of systems reviewed and negative at this time. ALLERGIES: 1. NAPROXEN. 2. ACETAMINOPHEN. 3. OXYCODONE. 4. CLONIDINE. MEDICATIONS AN OUTPATIENT: 1. Levothyroxine daily. 2. Ibuprofen p.r.n. PHYSICAL EXAMINATION: VITAL SIGNS: Temperature 37, pulse 86, respiratory rate 12, blood pressure 141/76, saturating 96% on 3 liters nasal cannula. GENERAL: Awake, alert, oriented x3, in no acute distress. HEENT: Normocephalic, atraumatic. Pupils equal, round and react to light and accommodation. Extraocular muscles intact. Anicteric sclerae. Moist mucous membranes. NECK: No JVD, no bruit. CARDIOVASCULAR: Regular but distant. I do not appreciate any murmurs, rubs or gallops. PULMONARY: Clear to auscultation bilaterally. No rales, rhonchi, or wheezing. ABDOMEN: Bowel sounds x4, soft. No rebound, guarding, tenderness. No organomegaly. EXTREMITIES: No clubbing, cyanosis or edema. Extreme pain with palpitation of the right hip. SKIN: Warm and dry. TEST RESULTS: A 12-lead EKG performed in the Emergency Department independently reviewed at this time shows normal sinus rhythm at 85 beats per minute, normal axis, normal intervals, nonspecific flattened T waves laterally. No previous studies available for comparison. A 2D echocardiogram performed today was read as normal LV chamber size with mild concentric LVH, severely reduced LV systolic function, EF 25%-30%, akinesis of the inferior/inferolateral diaz with otherwise moderate global hypokinesis, grade I diastolic dysfunction, moderate aortic valve sclerosis without stenosis. No previous studies available for comparison. Right femur x-ray was read as oblique moderately angled fracture of distal femoral shaft. LABORATORY STUDIES OF SIGNIFICANCE: White count of 11.8, hemoglobin 12.8, platelet count of 174. Sodium 142, potassium 4.7, BUN 31, creatinine 1.22. IMPRESSION: 1. Preoperative risk assessment prior to undergoing hip fracture repair. 2. Severely reduced left ventricular systolic function, ejection fraction 25%-30%, status post implantable cardioverter-defibrillator placement. 3. Poor historian. RECOMMENDATIONS: and Mrs. Lane were counseled that given the limited information that I have available and based on the results of her echocardiogram along with her limited activity at baseline that I will place her at a higher risk for any adverse perioperative cardiovascular event with the risk of approximately greater than 5%. They were further counseled that no further cardiac testing or intervention would further lower that risk. They both state that they understand, they are accepting that risk and wish to proceed with the surgery. In terms of her overall cardiac health, I am very confused by her lack of cardiac medications including aspirin, statin, evidence based beta douglas and alejandro-i/arb given the possible history of PCI and ischemic cardiomyopathy. I believe medical records should be obtained as soon as possible from her previous sow farm manager's. Unfortunately, this is Tuesday night of a 3-day holiday weekend and doubt that those will be obtained soon. However, given her reduced LV systolic function, optimal medical therapy would be recommended going forward, including aspirin, evidence based beta douglas, statin, alejandro-i/arb, +/- spironolactone. 115 minutes of critical care time was spent in direct patient contact, review of medical records and discussion with family members. SAL
--- NOTE | 2019-03-17 20:59 | CT Scan Report ---
CT hip LT wo con CT DOSE: HISTORY: Trauma. Pain. possible left femoral neck fracture. Hx fall TECHNIQUE: Multiaxial CT images of the left hip were performed and reformatted in the sagittal and co mirlande plane without the use of contrast. A dose lowering technique was utilized adhering to the prin ciples of NORI. COMPARISON: None. FINDINGS: Severe degenerative change left hip with [id number] configuration at the acetabulum. Considerable deterioration of the articular services throughout. No evidence for an acute fracture. Routine film findings appear to be secondary to overlap artifact. IMPRESSION: 1. Severe degenerative change. 2. No evidence for fracture. 3. The routine image findings appear to be secondary to overlap artifact and degenerative osteophytic change The above report was generated using voice recognition software. It may contain grammatical, syntax or spelling errors. Electronically signed by: Fazal Garza M.D. 03/17/2019 8:58 PM
--- NOTE | 2019-03-18 00:06 | Consultation Report ---
DATE OF CONSULTATION: 03/17/2019 The patient is seen at request of Dr. Que Singh for right displaced distal femoral fracture. PERTINENT HISTORY: The patient is at her normal state of health, she was at home. She was in the shower, she slipped and fell on her right leg, had twisted and unable to ambulate, severe pain, transported to [facility], seen and evaluated. Radiographs were obtained noting a displaced angulated distal femoral fracture. The patient admitted to the hospitalist service for optimization and management. Orthopedics for consultation. The patient has no other associated injuries. PAST MEDICAL HISTORY: Hypertension, coronary artery disease, status post stent, status post insertion of AICD, colon cancer, treated with chemo and radiation and colostomy, hypothyroidism, lymphedema bilateral lower extremities, morbid obesity, cerebrovascular disease with history of stroke. No residual symptoms. Hypothyroidism. PAST SURGICAL HISTORY: Cholecystectomy, appendectomy, bilateral oophorectomy, partial resection of colon, coronary artery disease with stenting, implantation of automatic cardioverter defibrillator. SOCIAL HISTORY: She is . She lives at home with her spouse. She is retired. She is a former smoker, quit 30 years ago. Denies alcohol or drug use. PHYSICAL EXAM: This is a 78-year-old female, morbidly obese, lying supine in hospital room bed, eating her dinner in a supine position. Alert and oriented x3. Speech clear and fluent. Affect is appropriate. She is wearing glasses. Examination of the right lower extremity demonstrates skin warm, dry and intact. Local edema of the right knee and distal femur, tender to palpation over the right distal femur and right knee region. Limited active and passive range of motion of the right knee due to pain and guarding. Pulses palpable bilateral lower extremities. Sensation intact to bilateral lower extremities. Limited motion due to pain and guarding of right knee. Multiple radiographs and laboratory data reviewed, noting a displaced angulated right distal femoral fracture. Appears to be extraarticular. IMPRESSION: Right displaced angulated distal femoral fracture. RECOMMENDATION: We discussed the care of this patient with the medical service and the patient is currently cleared for surgery with an acceptable risk for planned procedure. Anesthesia is also been consulted for the care of this patient. She should be n.p.o. after midnight for planned surgery tomorrow. She will need to be nonweightbearing for a period of at least 6 weeks, right lower extremity. Likely rehab stay. Thank you for the opportunity to consult in the care of the patient.
[2019-03-18] MEDS: LEVOTHYROXINE SODIUM 75 MCG TABLET PO SCH ×2 (05:32→07:50)
[2019-03-18] MEDS: HYDROmorphone INJ 2 MG/ML SYR/VIAL IV PRN ×2 (08:48→18:23)
[2019-03-18 08:58] LABS: BUN Creatinine Ratio 34.7 (10-20); Calcium 9.2 mg/dl (8.5-10.1); Est GFR (African American) 70.1; Est GFR (Non-African American) 60.5; Magnesium 2.3 mg/dl (1.8-2.4); Potassium 4.4 mmol/L (3.5-5.1)
[2019-03-18 09:06] LABS: Hematocrit (blood only) 28.6 % (37-47); Hemoglobin 9.4 g/dL (12.0-16.0); Mean Corpuscular Hgb Conc 32.9 g/dL (32-36); Mean Corpuscular Volume 89.7 fL (80-100); Mean Platelet Volume 10.1 fL (7.4-10.4); Platelet Count 150 K/uL (130-400); RDW Coefficient of Variation 15.4 % (11.5-14.5); RDW Standard Deviation 50.4 fL (36.4-46.3); Red Blood Count 3.19 M/uL (4.2-5.4); White Blood Count 8.92 K/uL (4.8-10.8)
[2019-03-18] MEDS ORDERED: ROCURONIUM BROMIDE 10 MG/ML 5 ML VIAL ONE ×10 (09:12→14:15)
[2019-03-18] MEDS ORDERED: ETOMIDATE 2 MG/ML 20 ML VIAL IV ONE (09:12)
[2019-03-18] MEDS ORDERED: fentaNYL citrate 100 MCG/2 ML VIAL ONE ×2 (09:12→12:57)
[2019-03-18] MEDS ORDERED: PROPOFOL IV EMULSION 10 MG/ML 20 ML VIAL IV ONE (09:12)
[2019-03-18] MEDS ORDERED: LIDOCAINE HCL 2% 2 ML VIAL/AMP(20MG/ML) INFIL ONE (09:12)
[2019-03-18] MEDS ORDERED: BACITRACIN INJ 50,000 UNIT VIAL ONE (10:21)
[2019-03-18] MEDS ORDERED: ALBUMIN HUMAN 5% 12.5 GM/250 ML VIAL IV ONE (10:46)
[2019-03-18] MEDS ORDERED: DOBUTamine 500MG / 250ML D5W IV ONE (10:47)
[2019-03-18] MEDS ORDERED: ATROPINE SULFATE 0.1 MG/ML 10ML SYR IV PRN (11:33)
[2019-03-18] MEDS ORDERED: HYDROmorphone INJ 1 MG/ML SYRINGE IV PRN (11:33)
[2019-03-18] MEDS ORDERED: ePHEDrine sulfate 50 MG/ML AMP IV PRN (11:33)
--- NOTE | 2019-03-18 11:48 | History & Physical Bridge Note ---
Date of Service March 18, 2019 History & Physical Bridge Note I have examined the patient, reviewed the History & Physical and in the interval since the performance of the History & Physical I have noted the following changes of clinical significance: no changes noted
[2019-03-18] MEDS ORDERED: PHENYLEPHRINE HCL 10 MG/ML VIAL ONE ×2 (12:45→14:56)
[2019-03-18] MEDS ORDERED: CEFAZOLIN 250 MG/ML 1 GM VIAL ONE (12:49)
[2019-03-18] MEDS ORDERED: SODIUM CHLORIDE 0.9% 250 ML IV PRN (13:13)
[2019-03-18] MEDS ORDERED: CALCIUM CHLORIDE 10% 10 ML SYR IV ONE (14:39)
--- NOTE | 2019-03-18 15:59 | Fluoroscopy Report ---
FL femur RT 2V CLINICAL HISTORY: ORIF RIGHT DISTAL FEMUR FX COMPARISON STUDY: Right femur CT 03/17/2019. FLUOROSCOPY TIME: 1 minute and 10 seconds.. 3 fluoroscopic spot images. FINDINGS: Patient is status post internal fixation of a distal femoral fracture with lateral cortical plate and screws. The hardware appears intact. The alignment is near-anatomic. Skin chasity are in p lace. IMPRESSION: Fluoroscopy provided for internal fixation of a distal right femoral fracture. Electronically signed by: Damien Sheets M.D. 03/18/2019 3:58 PM
[2019-03-18] MEDS ORDERED: ADENOSINE IV SOLN 3 MG/ML 2 ML VIAL IV ONE (16:20)
[2019-03-18] MEDS ORDERED: ONDANSETRON INJ 2 MG/ML 2 ML VIAL ONE (16:20)
--- NOTE | 2019-03-18 16:25 | Hospitalist Progress Note ---
Date of Service March 18, 2019 Assessment & Plan (1) Femur fracture, right: Patient is a 78-year-old female who presents with mechanical fall resulting in right hip fracture. R Femur Xay: Oblique moderately angled fracture distal femoral shaft. L Femur Xray: Limited study suggesting a fracture of the left femoral neck. R Knee Xray: General degenerative change. No acute process CT Head: No acute intracranial abnormality. CT C-Spine: No acute bony abnormality. CT Hip:Severe degenerative change. No evidence for fracture. Given significant Cardiac history, patient is high risk for surgery Pain Control Appreciate Ortho and Cardiology Input Monitor for Postop anemia Bowel regimen to prevent constipation (2) Hypoxia: Pt was found by EMS to have O2 sat 80% In ER 81% on RA and increased to 98% on 4L. CT chest: Lungs are clear. No significant abnormality identified within the chest. (Was not PE study) Venous Doppler:No DVT within the right or left lower extremity. Limited exam as the patient could not tolerate compression Saturating Low 90s on room air Supplemental Oxygen PRN Hypoxia likely due to Obesity hypoventilation. (3) Renal insufficiency: Cr: 1.22>>>0.92 Unknown baseline Cr improved with IVF Obtain outside records Monitor renal function (4) Coronary artery disease: (5) Cardiac defibrillator in place: H/O NV in 2006. Pt reports had to have shock. S/P PCI. H/O ICD placed, no reported firings since placement. Currently not on any cardiac meds Ideally need to be on aspirin, metoprolol, statin, MARLA or ARB Obtain outside records ECHO: Mild concentric LVH, severely reduced LV systolic function, EF 25 to 30%, akinesis of the inferior/inferolateral diaz With otherwise, moderate global hypokinesis. Grade 1 diastolic dysfunction. Aortic wall sclerosis moderate, without significant aortic valvular stenosis Cardiology on board (6) Colon cancer: S/P chemo, radiation, colostomy Denies abdominal pain (7) Hypothyroidism: TSH: 5.5 Normal Free T4 continue levothyroxine DVT Px: SCDs Re: Planned for procedure Plan to start on pharmacological DVT Px as able Code Status Full Code Disposition: To be determined Follows with Dr Romero in [place] for routine care Subjective Patient is seen and examined at bedside Right leg pain is controlled with medications Denies any chest pain, shortness of breath, nausea, dizziness, abdominal pain Plan for hip fracture surgery today Family at bedside Review of Systems Review of Systems: All systems reviewed & are unremarkable except as noted in HPI & below Physical Exam Physical Exam: Physical Exam: Vitals signs as noted above General Appearance:Morbidly Obese, no apparent distress Head: normocephalic, Atraumatic Eyes: normal inspection, EOMI Neck: supple, Trachea midline Respiratory/Chest: Normal breath sounds, CTA Cardiovascular: S1, S2, Distant heart sounds, No audible murmur Abdomen/GI:Soft, Non tender, Bowel sounds present Extremities/Musculoskelatal:normal inspection, RLE ecchymosis, +Hip Mild tender, decreased ROM, +Lymphedema Neurologic/Psych:AAOX3, grossly no focal neurological deficits Skin: normal color, warm Results & Data Vital Signs (Past 12 Hours) Vital Signs Temp Pulse Pulse Resp BP Pulse Ox 03/18/19 08:24 79 03/18/19 07:50 36.8 C 85 20 104/65 90 03/18/19 04:00 36.8 C 74 20 108/69 98 Laboratory Results Short CBC 03/18/19 Range/Units 07:44 WBC 8.92 (4.8-10.8) K/uL Hgb 9.4 L D (12.0-16.0) g/dL Hct 28.6 L (37-47) % Plt Count 150 (130-400) K/uL BMP 03/18/19 07:44 Sodium 143 Potassium 4.4 Chloride 110 H Carbon Dioxide 26 BUN 32 H Creatinine 0.92 D Glucose 150 H Calcium 9.2 (1) Femur fracture, right Encounter type: initial encounter Femur location: shaft Fracture morphology: unspecified fracture morphology Fracture type: closed Qualified Code(s): S72.301A - Unspecified fracture of shaft of right femur, initial encounter for closed fracture
--- NOTE | 2019-03-18 16:26 | Post Operative Brief Note ---
Immediate Post Op Note v1 Date of Surgery March 18, 2019 Pre & Post Diagnosis Operation Date: 03/18/19 07:05 Pre-Op Diagnosis: Right displaced, comminuted, angulated, distal femur fracture, BMI greater than 53 with increased technical difficulty Post-Op Diagnosis: Right displaced, comminuted, angulated, distal femur fracture, BMI greater than 53 with increased technical difficulty due to large body habitus Procedure Operation Date: 03/18/19 07:05 Actual Procedures p Open Reduction Internal Fixation displaced, comminuted, angulated Right Distal Femur Fracture. BMI greater than 53 with increased technical difficulty.(Right) - Donald Mustafa DO Surgeon Donald Mustafa DO Manager Line Jessy Garcia PA-C Estimated Blood Loss 500 Findings Consistent with Post-Op Diagnosis Specimens None Drains Fuchs Catheter (in place from inpatient room, clear yellow urine noted, anesthesia to monitor urine output) and Other (colostomy bag in place, dry and intact) Anesthesia Type General Complications Increased level of technical difficulty and blood loss due to patient BMI grea ter than 53 Disposition Accompanied Patient To Recovery: No Disposition: Surgical ICU
[2019-03-18] MEDS ORDERED: HYDROmorphone INJ 1 MG/ML SYRINGE ONE (17:05)
--- NOTE | 2019-03-18 17:09 | Anesthesiology Progress Note ---
Date of Service March 18, 2019 Anesthesia Post Procedure Vital Signs Vital Signs: Temp Pulse Pulse Resp BP BP Pulse Ox 03/18/19 08:24 79 03/18/19 07:50 36.8 C 85 20 104/65 90 03/18/19 04:00 36.8 C 74 20 108/69 98 03/18/19 00:00 36.6 C 80 20 105/62 94 03/17/19 23:07 72 03/17/19 18:15 86 03/17/19 17:54 37 C 84 18 141/76 H 96 03/17/19 17:38 88 20 96 Pain Intensity Right Leg: Pain Intensity: 9 Transfer of Care Handoff Completed per policy Notes Mental Status: alert / awake / arousable Patient Amnestic to Procedure: Yes Nausea / Vomiting: adequately controlled Pain: adequately controlled Airway Patency, RR, SpO2: stable & adequate BP & HR: stable & adequate Hydration State: stable & adequate Anesthetic Complications: no major complications apparent and Pt Satisfied with anesthetic care
[2019-03-18] MEDS ORDERED: SODIUM CHLORIDE 0.9% INJ 10 ML VIAL ONE (17:16)
[2019-03-18] MEDS ORDERED: ICU PROTOCOL FOR HYPERGLYCEMIA PRN (17:40)
[2019-03-18 17:42] LABS: iSTAT Creatinine 0.7 mg/dl (0.6-1.3); iSTAT Hemoglobin 7.8 g/dl (12.0-16.0); iSTAT Ionized Calcium 1.48 mmol/l (1.12-1.32); iSTAT Potassium 4.1 mEq/L (3.3-5.0)
--- NOTE | 2019-03-18 17:57 | Critical Care Consultation ---
Date of Consultation March 18, 2019 Assessment & Plan (1) Admitted to intensive care unit: Reason Critically Ill: 78-year-old female with high risk for morbidity and mortality secondary to emergent orthopedic surgery: Right femur fracture PLAN: Neuro: Pain -Fentanyl IV Resp: Postoperative respiratory insufficiency -Wean ventilator tomorrow CV: Ischemic cardiomyopathy -Currently off pressors Fluids/Renal: Renal insufficiency -No additional fluids at this time given large volume of blood product ID: Postoperative antibiotics per orthopedics GI/Nutrition: N.p.o. -OG tube placement for p.o. medications Heme: Acute blood loss anemia -Transfused 4 units in OR DVT prophylaxis: Heparin 7500 units 3 times daily Endocrine: ICU hyperglycemia protocol Vascular access: Peripheral IVs, left radial art line Code Status: Full I have personally spent 50 minutes of critical care time in the direct management of this patient. This is a life/limb threatening event. This includes time spent evaluating patient, direct bedside care, chart review, placing orders, interpretation of diagnostic studies, discussion with consultants, patient, and/or family members regarding treatment decisions, as well as other required patient management activities. This time is exclusive of all separately billable procedures, and teaching time and separate from and in addition to any other critical care service time. (2) Acute blood loss as cause of postoperative anemia: History of Present Illness Attending Physician: In the operating room the patient required dobutamine as well as intermittent phenylephrine Surgery was emergent, she is at high risk for morbidity and mortality.Que Singh MD Patient is a 78-year-old female who was admitted to the ICU for postoperative management of a right femur fracture. Patient has a significant past medical history of a severely reduced left ventricular systolic function with EF 25 to 30% with grade 1 diastolic dysfunction, numerous wall motion abnormalities and moderate global hypokinesis. Renal insufficiency, known ischemic cardiac disease: Coronary artery disease status post defibrillator basement, history of colon cancer status post chemoradiation and colostomy, hypothyroidism. Surgery was emergent, she is at high risk for morbidity and mortality. In the operating room the patient required dobutamine as well as intermittent phenylephrine, she received 4 units of packed red blood cells in the operating room, by the end of the case the patient had been weaned off the dobutamine. She was transported to the ICU intubated, she was largely apneic upon her arrival here and given concerns of fluid shifts given a rather large volume resuscitation requirements in the operating room an extensive surgical procedure we will leave the patient intubated overnight. Allergies Allergy/AdvReac Type Severity Reaction Status Date / Time naproxen Allergy feet Unverified 03/17/19 12:33 swelling acetaminophen AdvReac Unknown NAUSEA Verified 03/17/19 12:33 oxycodone AdvReac Unknown NAUSEA Verified 03/17/19 12:33 clonidine AdvReac NAUSEA Verified 03/17/19 12:33 Home Medications Home Medications Medication Instructions Recorded Confirmed Type ibuprofen [Advil] 600 mg PO Q6H PRN 03/17/19 03/17/19 History levothyroxine 75 mcg PO QAM 03/17/19 03/17/19 History Patient History Medical History Hypothyroidism (Chronic) Cardiac defibrillator in place (Chronic) Cardiac defibrillator in place (Chronic) Colon cancer (Chronic) Coronary artery disease (Chronic) History of hypertension (Chronic) Cerebrovascular disease (Chronic) "stroke years ago, no residual symptoms" Surgical History Status post cholecystectomy (Chronic) Status post appendectomy (Chronic) Status post bilateral oophorectomy (Chronic) Status post partial resection of colon (Chronic) Status post coronary artery stent placement (Chronic) Status post implantation of automatic cardioverter/defibrillator (AICD) (Chronic) Family History Other Family history unknown Social History Preferred Language: Moroccan Communication Ability: Effective Credit Operations Specialist Required: No Beliefs That Will Affect Care: None Current Living Situation: Spouse Other Information That Helps Us Care for You: No Feels Safe at Home: Yes Safety Concerns: Feels Safe At This Time Smoking Status: Former smoker Number of Years Since Quit: 30 Hx Alcohol Use: No Hx Substance Use: No Review of Systems Review of Systems: Unobtainable due to endotracheal tube Physical Exam Physical Exam: General: Obese elderly female in no acute distress I have reviewed the recorded vital signs Neurological: RASS score: 0, Moves all 4 extremities, Psychological: Glascow Coma Scale: Eyes: 4, Verbal 1T, Motor 6: Weak, Total 11 T following complex commands Eyes: Pupils are equal, round and reactive to light, anicteric sclera. Symmetrical lids. HENT: Oropharynx is obscured by the endotracheal tube, moist mucous membranes. Neck: Supple. Symmetric. trachea midline. No thyromegaly. Cardiovascular: Normal peripheral perfusion. Distal pulses and capillary refill intact. No JVD. Respiratory: Respirations are non-labored, no accessory muscle use. Breath sounds are equal. Gastrointestinal: Soft. Non-distended. Lymphatic: No cervical lymphadenopathy. Musculoskeletal: Right lower extremity in knee immobilizer, left wrist radial art line present Results & Data Vital Signs (Past 12 Hours) Vital Signs Temp Pulse Pulse Pulse Resp BP BP 03/18/19 17:25 80 31 H 88/57 L 03/18/19 17:15 80 28 H 83/57 L 03/18/19 17:14 87 16 03/18/19 17:08 92 H 16 03/18/19 17:05 79 16 85/58 L 03/18/19 16:55 36.9 C 82 15 03/18/19 08:24 79 03/18/19 07:50 36.8 C 85 20 104/65 BP Pulse Ox 03/18/19 17:25 127/62 100 03/18/19 17:15 127/62 100 03/18/19 17:14 100 03/18/19 17:08 100 03/18/19 17:05 121/66 100 03/18/19 16:55 128/67 99 03/18/19 08:24 03/18/19 07:50 90 Laboratory Results 03/18/19 03/18/19 03/18/19 Range/Units 14:54 07:44 07:44 WBC (4.8-10.8) K/uL RBC (4.2-5.4) M/uL Hgb (12.0-16.0) g/dL POC Hgb 7.8 L (12.0-16.0) g/dl Hct (37-47) % POC Hct 23 L (37-47) % MCV (80-100) fL MCH (25-34) pg MCHC (32-36) g/dL RDW Std Deviation (36.4-46.3) fL RDW Coeff of Johanne (11.5-14.5) % Plt Count (130-400) K/uL MPV (7.4-10.4) fL POC Sodium 144 (135-144) mEq/L Sodium 143 (136-145) mmol/L POC Potassium 4.1 (3.3-5.0) mEq/L Potassium 4.4 (3.5-5.1) mmol/L POC Chloride 111 (101-112) mEq/L Chloride 110 H (98-107) mmol/L Carbon Dioxide 26 (21-32) mmol/L POC Total CO2 23 L (24-31) mEq/l Anion Gap 7.0 (3-11) POC Anion Gap 15.0 L (16-25) mmol/L POC BUN 29 H (7-18) mg/dl BUN 32 H (7-18) mg/dl Creatinine 0.92 D (0.6-1.2) mg/dl POC Creatinine 0.7 (0.6-1.3) mg/dl Est Cr Clr Drug Dosing 63.0 ml/min Est GFR ( Amer) 70.1 Est GFR (Non-Af Amer) 60.5 BUN/Creatinine Ratio 34.7 H (10-20) Glucose 150 H (70-99) mg/dl POC Glucose (other) 177 H (70-99) mg/dl Calcium 9.2 (8.5-10.1) mg/dl POC Ioniz Calcium Fabian 1.48 H (1.12-1.32) mmol/l Magnesium 2.3 (1.8-2.4) mg/dl Blood Type Blood Type Recheck A Positive Antibody Screen Crossmatch 03/18/19 03/17/19 Range/Units 07:44 16:23 WBC 8.92 (4.8-10.8) K/uL RBC 3.19 L (4.2-5.4) M/uL Hgb 9.4 L D (12.0-16.0) g/dL POC Hgb (12.0-16.0) g/dl Hct 28.6 L (37-47) % POC Hct (37-47) % MCV 89.7 (80-100) fL MCH 29.5 (25-34) pg MCHC 32.9 (32-36) g/dL RDW Std Deviation 50.4 H (36.4-46.3) fL RDW Coeff of Johanne 15.4 H (11.5-14.5) % Plt Count 150 (130-400) K/uL MPV 10.1 (7.4-10.4) fL POC Sodium (135-144) mEq/L Sodium (136-145) mmol/L POC Potassium (3.3-5.0) mEq/L Potassium (3.5-5.1) mmol/L POC Chloride (101-112) mEq/L Chloride (98-107) mmol/L Carbon Dioxide (21-32) mmol/L POC Total CO2 (24-31) mEq/l Anion Gap (3-11) POC Anion Gap (16-25) mmol/L POC BUN (7-18) mg/dl BUN (7-18) mg/dl Creatinine (0.6-1.2) mg/dl POC Creatinine (0.6-1.3) mg/dl Est Cr Clr Drug Dosing ml/min Est GFR ( Amer) Est GFR (Non-Af Amer) BUN/Creatinine Ratio (10-20) Glucose (70-99) mg/dl POC Glucose (other) (70-99) mg/dl Calcium (8.5-10.1) mg/dl POC Ioniz Calcium Fabian (1.12-1.32) mmol/l Magnesium (1.8-2.4) mg/dl Blood Type A Positive Blood Type Recheck Antibody Screen NEGATIVE Crossmatch See Detail
[2019-03-18 18:17] LABS: Hematocrit (blood only) 33.5 % (37-47); Hemoglobin 11.8 g/dL (12.0-16.0)
[2019-03-18 18:35] LABS: Albumin Level 2.5 gm/dl (3.4-5.0); BUN Creatinine Ratio 32.1 (10-20); Calcium 8.6 mg/dl (8.5-10.1); Creatinine Clr Calc Pharmacy 65.1 ml/min; Magnesium 2.1 mg/dl (1.8-2.4); Potassium 4.8 mmol/L (3.5-5.1)
[2019-03-18 18:50] LABS: Albumin Globulin Ratio 0.9 (0.9-2); Bilirubin,Total 1.1 mg/dl (0.2-1); Globulin 2.8 gm/dl (2.5-4.0); Phosphorus 3.3 mg/dl (2.5-4.9); Total Protein 5.3 gm/dl (6.4-8.2)
[2019-03-18 18:55] LABS: Fibrinogen 323 mg/dl (184-400); INR 1.1 (0.9-1.1); Partial Thromboplastin Ratio 0.8; Partial Thromboplastin Time 22.8 Seconds (21.0-31.0); Prothrombin Time 10.9 Seconds (9.0-12.0)
--- NOTE | 2019-03-18 18:58 | XRay Report ---
XR chest 1V portable HISTORY: Intubation. COMPARISON: Chest 03/17/2019. FINDINGS: The endotracheal tube terminates in the right mainstem bronchus. This should be pulled back by approximately 3 cm. Left-sided single lead pacemaker. No pneumothorax. No pleural effusions. Left basilar linear densities favor subsegmental atelectasis. The right lung is clear. No evidence for pu lmonary edema. The heart remains enlarged. IMPRESSION: Endotracheal tube terminates in the right mainstem bronchus. This should be pulled back by approximat bruce 3 cm. This finding was discussed with Dr. Arana at 7:09 PM on 03/18/2019. Electronically signed by: Damien Sheets M.D. 03/18/2019 7:09 PM
[2019-03-18] MEDS: MIDAZOLAM HCL 1 MG/ML 2ML VIAL IV PRN (20:08)
[2019-03-18] MEDS: fentaNYL citrate 100 MCG/2 ML VIAL IV PRN (20:08)
--- NOTE | 2019-03-18 21:00 | XRay Report ---
XR chest 1V portable HISTORY: TUBE PLACEMENT COMPARISON: Chest 03/18/2019. FINDINGS: Endotracheal tube terminates 1.9 cm from the susana. Nasogastric tube terminates in the sto mach. Left-sided single lead pacemaker/defibrillator is again noted. No pneumothorax. Low lung volume s. The heart remains enlarged. Left basilar densities persist. IMPRESSION: Satisfactory support line placement. Electronically signed by: Damien Sheets M.D. 03/18/2019 8:58 PM
[2019-03-18] MEDS: HEPARIN SODIUM (PORCINE) 7,500 UNITS in SYRINGE 0 ML SQ SCH (21:16)
--- NOTE | 2019-03-18 23:29 | Operative Report ---
DATE OF OPERATION: 03/18/2019 PREOPERATIVE DIAGNOSES: 1. Right displaced comminuted angulated distal femoral fracture. 2. Body mass index over 53. POSTOPERATIVE DIAGNOSES: 1. Right displaced comminuted angulated distal femoral fracture. 2. Body mass index over 53. PROCEDURES: 1. Open reduction internal fixation right displaced comminuted angulated distal femoral fracture. 2. Body mass index over 53 with increased technical difficulty and increased blood loss due to a large body habitus. SURGEON: Donald Mustafa DO ARMATURE BANDER: Jessy Garcia PA-C who was present for patient positioning, sterile prep and drape, management of retractors and instruments. He was present through the critical portions of the case including wound closure, application of sterile dressing and transport of the patient to recovery. ANESTHESIA: General. SPECIMENS: None. DRAINS: Prevena drain due to large body habitus. COMPLICATIONS: Increased technical difficulty and increased blood loss due to the patient's large body habitus, BMI over 53. BLOOD LOSS: 500 mL. PERTINENT HISTORY: This is a 78-year-old woman who sustained a mechanical fall while in the shower at home. She twisted her leg underneath her and felt a pop and snap and unable to ambulate and had to be transported by Emergency [facility] to [facility] where she was assessed and had radiographs and CT scan and then admitted to the hospitalist service. They noted that she had poor ejection fraction and other complicating medical comorbidities as noted in the medical record. The patient is deemed high risk for surgery; however, also deemed urgent due to the nature of her fracture and continued blood loss and inability to ambulate or transfer without severe pain. The patient was then scheduled for surgery as indicated. All potential risks, benefits, complications, alternatives, rehab potential for incomplete relief of symptoms, need for further surgery, deep venous thrombosis, pulmonary embolism, , persistent pain, swelling, scarring, weakness, neurovascular injury, wound complications, hardware failure, nonunion, malunion, need for blood transfusion, wound complications and bone fracture were discussed with the patient. The patient decided to proceed with the procedure as indicated. DESCRIPTION OF PROCEDURE: The patient was taken to operative suite, placed supine on the Operating Room table, difficulty with positioning due to the patient's large body habitus, BMI over 53. The patient had bolsters and HoverMatt transfer system utilized to transfer her from one bed to another. She also had to have the limbs padded and taped to prevent her from any rolling. The patient's consent was then interviewed. The patient was then anesthetized and ET tube was placed by the anesthesiologist. After positioning was completed, the right lower extremity was then sterilely prepped and draped in usual fashion. Next, 10 blade scalpel was used to make an incision centered over the fracture then extending proximally and distally. An enlarged incision was necessary due to the patient's large leg with significant amount of adipose tissue. Extensive dissection and increased time for surgery and dissection was performed due to the patient's large body habitus, BMI over 53. Extensive adipose tissue was encountered before fascial tissue was reached in the lateral aspect of the thigh. The iliotibial band was then incised and the skin incision had to be extended proximally and distal due to the patient's enlarged lower extremity. The iliotibial band was then retracted with house retractors followed by extended time for hemostasis due to the significant number of punctate bleeders noted in the adipose tissue layer. This was performed with a hemostat and electrocautery. Next, the vastus lateralis was then palpated and then 15 blade was used to make an incision in the fascia and blunt dissection was then performed with a large Morales scissors down to the level of bone at the fracture site. Next, blunt Hohmanns were placed superior to the fracture to elevate the soft tissue. Extended period of time was necessary to dissect off the vastus lateralis and cauterize deep bleeders as necessary. Once the fracture was exposed proximally, the fracture was then exposed distally down to the level of the lateral condyle. There was noted to be significant degenerative arthritis of the knee joint with marginal osteophytes and chondromalacia present at the femoral condyle. The incision was continued distally on the iliotibial band down to the level just proximal to Gerdy tubercle. After adequate exposure was obtained, there was noted to be significant fragmentation and comminution of the fracture at the distal one third of the femur. Traction was applied to the patient's ankle with manual traction to assist with reduction. Next, the fracture fragments were reduced and a large lobster claw bone forceps was then used to stabilize the fracture. Multiple attempts were made to stabilize the fracture as fragments were significantly weak and brittle. Difficulty with the patient's body habitus was evident with retraction of the soft tissues around the bone to obtain reduction. Next, 10-hole lateral distal femoral periarticular Synthes plate was then provisionally pinned to the distal femur. First, the distal locking screws were placed to stabilize the distal portion of the plate to the bone under live fluoroscopic assistance and then the plate was then used as an assistive device to reduce the fracture. This was clamped in place using a bone clamp using traction of the ankle and then a single nonlocking screw was placed in the midshaft of the femur to stabilize and compress the fracture and the plate under live fluoroscopic assistance. Once this was stabilized, rotation and flexion and extension of the distal fragment was stabilized with a second screw placed nonlocking then multiple locking screws were placed both distally and proximally to achieve final fixation and stabilization of the fracture into near anatomic position. There was noted to be extensive comminution at the fracture site and these fragments were then carefully aligned with a forceps and held in place with two raking sutures of #5 FiberWire. Raking sutures were placed circumferentially at the fracture site to stabilize fracture fragments. Multiple fluoroscopic views were obtained noting near anatomic fixation and stabilization of the fracture and its fragments. Final x-rays obtained. Pulsatile lavage was then used to lavage the surgical site until clear. Approximately 3 liters total was used with bacitracin. Next, the vastus lateralis was then closed using #1 Vicryl. The joint capsule was closed using #1 Vicryl. The iliotibial band was then closed using #1 Vicryl. Deep sutures were placed in the adipose tissue to close space with buried interrupted 2-0 Vicryl. The dermis was closed using buried interrupted 2-0 Vicryl. Next, skin chasity were used to close the incision site and large Prevena drain was then placed laterally due to anticipated complications due to the patient's large body habitus and BMI over 53. Next, the patient was then awakened and transferred to the Intensive Care Unit due to her multiple medical comorbidities and the lacemaker was present to evaluate the patient prior to transfer to the Intensive Care Unit. I attest to the content of the Intraoperative Record and any orders documented therein. Any exception s are noted below.
[2019-03-19] MEDS: fentaNYL citrate 100 MCG/2 ML VIAL IV PRN ×2 (02:48→20:59)
[2019-03-19] MEDS: MIDAZOLAM HCL 1 MG/ML 2ML VIAL IV PRN (04:25)
[2019-03-19 04:50] LABS: Hematocrit (blood only) 32.6 % (37-47); Hemoglobin 11.4 g/dL (12.0-16.0); Mean Corpuscular Volume 86.7 fL (80-100); Mean Platelet Volume 9.7 fL (7.4-10.4); Nucleated RBC # (auto) 0.11 K/uL (0-0); Nucleated RBC % (auto) 1.1 %; Platelet Count 114 K/uL (130-400); RDW Coefficient of Variation 15.3 % (11.5-14.5); RDW Standard Deviation 47.9 fL (36.4-46.3); Red Blood Count 3.76 M/uL (4.2-5.4); White Blood Count 10.74 K/uL (4.8-10.8)
[2019-03-19 05:26] LABS: BUN Creatinine Ratio 31.5 (10-20); Calcium 8.4 mg/dl (8.5-10.1); Creatinine Clr Calc Pharmacy 55.6 ml/min; Est GFR (African American) 62.6; Magnesium 2.1 mg/dl (1.8-2.4); Potassium 4.8 mmol/L (3.5-5.1)
--- NOTE | 2019-03-19 06:27 | XRay Report ---
XR chest 1V portable CLINICAL HISTORY: intubation COMPARISON STUDY: 12/04/2019 FINDINGS: Endotracheal tube is 1.8 cm below the susana. Nasogastric tube is inferior to the diaphragm . Increased density left basilar region is unchanged. Slight parenchymal interstitial prominence righ t base. Upper lungs are clear. IMPRESSION: Tube and line position as noted. Parenchymal findings are unchanged. Endotracheal tube 1 .8 cm above the susana. The above report was generated using voice recognition software. It may contain grammatical, syntax or spelling errors. Electronically signed by: Fazal Garza M.D. 03/19/2019 6:25 AM
[2019-03-19] MEDS: HEPARIN SODIUM (PORCINE) 7,500 UNITS in SYRINGE 0 ML SQ SCH ×3 (07:56→23:50)
[2019-03-19] MEDS ORDERED: FUROSEMIDE 20 MG in SYRINGE 0 ML IV ONE (08:15)
--- NOTE | 2019-03-19 08:30 | Critical Care Progress Note ---
Date of Service March 19, 2019 Assessment & Plan (1) Admitted to intensive care unit: 78-year-old female who was admitted to the ICU for postoperative management of a right femur fracture. She is known to have HFrEF (EF 25 to 30% with grade 1 diastolic dysfunction) secondary to CAD s/p AICD placement and Renal insufficiency. In addition she has history of colon cancer status post chemoradiation and colostomy, hypothyroidism. Surgery was emergent and she required dobutamine as well as intermittent phenylephrine, she received 4 units of packed red blood cells in the operating room, by the end of the case the patient had been weaned off the dobutamine. PLAN: Neuro: Pain -Fentanyl IV Resp: Postoperative respiratory insufficiency Tolerating SBT will give lasix given rhales and crackles and proceed with extubation. If she continues to have rhales then place on BIPAP incentive spirometer once extubated. titrate O2 to SPO2 >95%. CV: Ischemic cardiomyopathy No longer requires pressors will start small doses of beta blockers and MARLA inhibitiors and escalate the 12.5 mg metoprolol PO BID and then escalate. atorvastatin 40 mg PO daily GI pantoprazole 40 mg daily NPO for now Renal and electrolytes FU and replete lytes lasix 2 doses given low UO. this may be cardiorenal syndrome ID [email or web address] post op DVT prophylaxis heparin 7500 SC TID Endocrine: ICU hyperglycemia protocol continue levothyroxine 75 mcg daily lines and access: Peripheral IVs, left radial art line She has fermin and will keep it for now Remove OG once extubated hematology Hb up to 11.4 from 9.4 Code Status: Full I have personally spent 50 minutes of critical care time in the direct management of this patient. Subjective The patient is awake and indicating she wants the tube out. Her chest exam is positive for crackles and ere BNP is elevated. She has had no fever and does not appear in distress. She is on spontaneous breathing trial and is tolerating PSV of 8 PEEP 5 with SBI 30-40 Saturting >95% on 35% FiO2. She does not indicate any pain . Review of Systems Review of Systems: Unable to report symptoms verbally because she is intubated. She does indicate through that there is no leg pain no abdominal or chaest pain but that she is unhappy and wants the tube out. Physical Exam Constitutional: WD/WN, vitals as above obese Eyes: PERRL, conjunctivae normal, anicteric sclerae Neck: trachea midline, no thyromegaly + short neck and + thick neck Respiratory: Auscultation: + crackles and + rales Cardiovascular: RRR, no murmur, no edema Gastrointestinal (Abdomen): Inspection/Auscultation: abdomen normal to inspection BS are quite but the abdomen is soft and non tender Skin: clean wound right hip + 3 edema in both LE up to knee. (feet are realy swollen but no skin breakage seen. Neurologic: unable to move both LE. She says there is pain in the hip but she can distally move the toes and the feet. No other focal motor deficit. Results & Data Vital Signs (Past 12 Hours) Vital Signs Temp Pulse Resp BP Pulse Ox 03/19/19 07:38 98 H 14 96 03/19/19 06:10 99 H 96 03/19/19 06:01 100 H 141/70 H 96 03/19/19 06:00 99 H 97 03/19/19 05:50 100 H 97 03/19/19 05:44 89 18 98 03/19/19 05:40 100 H 97 03/19/19 05:30 109 H 97 03/19/19 05:20 98 H 98 03/19/19 05:10 94 H 97 03/19/19 05:01 96 H 120/66 96 03/19/19 05:00 96 H 96 03/19/19 04:50 99 H 97 03/19/19 04:40 96 H 96 03/19/19 04:30 99 H 95 03/19/19 04:20 124 H 95 03/19/19 04:10 93 H 93 03/19/19 04:01 36.7 C 90 130/83 97 03/19/19 04:00 92 H 97 03/19/19 03:50 89 97 03/19/19 03:40 91 H 96 03/19/19 03:30 92 H 96 03/19/19 03:23 97 H 111/70 96 03/19/19 02:50 93 H 98 03/19/19 02:40 89 98 03/19/19 02:30 88 99 03/19/19 02:20 85 99 03/19/19 02:10 87 98 03/19/19 02:01 86 121/68 98 03/19/19 02:00 85 16 99 03/19/19 01:50 87 99 03/19/19 01:40 86 99 03/19/19 01:30 87 99 03/19/19 01:20 83 99 03/19/19 01:10 82 99 03/19/19 01:01 87 117/71 98 03/19/19 01:00 83 99 03/19/19 00:50 84 99 03/19/19 00:40 83 99 03/19/19 00:30 87 99 03/19/19 00:20 82 99 03/19/19 00:10 85 98 03/19/19 00:01 82 139/70 99 03/19/19 00:00 36.7 C 80 99 03/18/19 23:50 80 99 03/18/19 23:40 80 99 03/18/19 23:30 79 99 03/18/19 23:20 80 99 03/18/19 23:15 80 17 99 05 23:10 80 99 03/18/19 23:01 81 136/63 99 05 23:00 82 99 03/18/19 22:50 79 99 05 22:40 79 100 05 22:30 75 100 05 22:20 79 100 05 22:10 75 99 05 22:01 75 113/72 100 03/18/19 22:00 73 100 05 21:50 75 100 05 21:40 76 100 05 21:30 77 100 05 21:20 76 100 05 21:10 76 100 05 21:01 73 122/62 100 05 21:00 72 100 05 20:50 73 100 05 20:40 73 100 05/ 20:30 74 100
[2019-03-19] MEDS ORDERED: FUROSEMIDE 40 MG/4 ML VIAL IV STA (08:50)
[2019-03-19] MEDS ORDERED: FUROSEMIDE 40 MG in SYRINGE 0 ML IV ONE (09:00)
[2019-03-19] MEDS ORDERED: CEFAZOLIN 1000MG 1,000 MG/7.5 ML SYR IV ONE (09:00)
--- NOTE | 2019-03-19 10:50 | Orthopedic Progress Note ---
Date of Service March 19, 2019 Assessment & Plan (1) Femur fracture, right: Continue Knee immobilizer. NWB 6 weeks. [address]ound vac in place Subjective POD #1. recently extubated. complaints of some pain Physical Exam Physical Exam: wound vac in place. knee immobilizer. NVI Results & Data Vital Signs (Past 12 Hours) Vital Signs Temp Pulse Resp BP Pulse Ox 03/19/19 10:10 90 99 03/19/19 10:01 88 129/67 98 03/19/19 10:00 88 99 03/19/19 09:50 92 H 97 03/19/19 09:40 91 H 98 03/19/19 09:30 90 98 03/19/19 09:20 91 H 98 03/19/19 09:10 93 H 98 03/19/19 09:05 94 H 21 98 03/19/19 09:01 97 H 127/54 L 97 03/19/19 09:00 99 H 93 03/19/19 08:50 94 H 97 03/19/19 08:40 95 H 97 03/19/19 08:30 97 H 96 03/19/19 08:20 96 H 96 03/19/19 08:10 37.7 C H 96 H 95 03/19/19 08:01 99 H 115/60 96 03/19/19 08:00 98 H 96 03/19/19 07:50 98 H 96 03/19/19 07:40 101 H 96 03/19/19 07:38 98 H 14 96 03/19/19 07:30 100 H 97 03/19/19 07:20 98 H 97 03/19/19 07:10 97 H 96 03/19/19 07:01 99 H 120/59 L 97 03/19/19 07:00 99 H 97 03/19/19 06:10 99 H 96 03/19/19 06:01 100 H 141/70 H 96 03/19/19 06:00 99 H 97 03/19/19 05:50 100 H 97 03/19/19 05:44 89 18 98 03/19/19 05:40 100 H 97 03/19/19 05:30 109 H 97 03/19/19 05:20 98 H 98 03/19/19 05:10 94 H 97 03/19/19 05:01 96 H 120/66 96 03/19/19 05:00 96 H 96 03/19/19 04:50 99 H 97 03/19/19 04:40 96 H 96 03/19/19 04:30 99 H 95 03/19/19 04:20 124 H 95 03/19/19 04:10 93 H 93 03/19/19 04:01 36.7 C 90 130/83 97 03/19/19 04:00 92 H 97 03/19/19 03:50 89 97 03/19/19 03:40 91 H 96 03/19/19 03:30 92 H 96 03/19/19 03:23 97 H 111/70 96 03/19/19 02:50 93 H 98 03/19/19 02:40 89 98 03/19/19 02:30 88 99 03/19/19 02:20 85 99 03/19/19 02:10 87 98 03/19/19 02:01 86 121/68 98 03/19/19 02:00 85 16 99 03/19/19 01:50 87 99 03/19/19 01:40 86 99 03/19/19 01:30 87 99 03/19/19 01:20 83 99 03/19/19 01:10 82 99 03/19/19 01:01 87 117/71 98 03/19/19 01:00 83 99 03/19/19 00:50 84 99 03/19/19 00:40 83 99 03/19/19 00:30 87 99 03/19/19 00:20 82 99 03/19/19 00:10 85 98 03/19/19 00:01 82 139/70 99 03/19/19 00:00 36.7 C 80 99 03/18/19 23:50 80 99 03/18/19 23:40 80 99 03/18/19 23:30 79 99 03/18/19 23:20 80 99 03/18/19 23:15 80 17 99 03/18/19 23:10 80 99 03/18/19 23:01 81 136/63 99 03/18/19 23:00 82 99 03/18/19 22:50 79 99 (1) Femur fracture, right Encounter type: initial encounter Femur location: shaft Fracture morphology: unspecified fracture morphology Fracture type: closed Qualified Code(s): S72.301A - Unspecified fracture of shaft of right femur, initial encounter for closed fracture
[2019-03-19] MEDS: METOPROLOL TARTRATE 25 MG TAB PO SCH ×4 (11:19→19:36)
[2019-03-19] MEDS ORDERED: Heparin IV Standard *NO* Bolus ONE (11:19)
[2019-03-19] MEDS ORDERED: METOPROLOL TARTRATE 25 MG TAB PO SCH (11:45)
[2019-03-19] MEDS ORDERED: Heparin Adult STANDARD Wt-Based Dextrose 5% 25,000 units/500 mL IV SCH (11:45)
[2019-03-19] MEDS: ATORVASTATIN 40 MG TAB PO SCH (11:56)
--- NOTE | 2019-03-19 12:53 | Cardiology Progress Note ---
Date of Service March 19, 2019 Assessment & Plan (1) Elevated troponin: Suspect demand ischemia in the setting of acute hypoxia and blood loss anemia at time of admission. No ischemic ECG changes currently. Patient without anginal symptoms. Continue to trend troponins. Given recent acute b lood loss anemia would recommend transition to DVT prophylaxis dose at this time. Restart low-dose aspirin, 81 mg daily. Add low-dose metoprolol, 12.5 mg twice daily. Continue to monitor telemetry. (2) Chronic systolic (congestive) heart failure: Patient appears compensated with chronic lower extremity edema. Patient will require optimization of heart failure therapies including addition of MARLA inhibitor/ARB, and Aldactone as blood pressure allows. (3) Ischemic cardiomyopathy: Status post ICD. Interrogations performed at [facility]. (4) Cardiac defibrillator in place: (5) Status post coronary artery stent placement: Subjective Patient seen and examined at the bedside. Extubated earlier today. Patient denies chest pain or shortness of breath. Hip pain well controlled. Offers no complaints at this time. Review of Systems Review of Systems: All systems reviewed & are unremarkable except as noted in HPI & below Physical Exam Physical Exam: General: NAD, AAO x3, well nourished. Morbidly obese. HEENT: Normocephalic. Atraumatic. Conjunctiva pink, no scleral icterus. Neck: No carotid bruits, the carotid upstrokes are brisk. No JVD. No HJR Heart: Distant heart sounds. Regular normal S-1 and S-2 no S-3 or S-4 gallop. No murmurs or rub appreciated. PMI is not displaced. No RV heave. Lungs: Poor effort. Clear bilateral without rales , rhonchi, or wheeze as examined anteriorly. Abdomen: Normal bowel sounds. Soft. Nontender. No masses or organomegaly. No abdominal bruits. Extremities: 3+ bilateral pedal and pretibial nonpitting edema. No clubbing or cyanosis. Pulses: radial=2/4.. Neuro: Cranial nerves grossly intact. No focal motor deficit. Results & Data Vital Signs (Past 12 Hours) Vital Signs Temp Pulse Resp BP Pulse Ox 03/19/19 12:01 94 H 126/68 95 03/19/19 12:00 37.6 C H 95 H 94 03/19/19 11:50 91 H 100 03/19/19 11:40 86 100 03/19/19 11:30 84 99 03/19/19 11:20 85 99 03/19/19 11:10 88 100 03/19/19 11:01 85 133/70 99 03/19/19 11:00 86 99 03/19/19 10:50 87 99 03/19/19 10:40 87 99 03/19/19 10:30 90 100 03/19/19 10:20 86 99 03/19/19 10:10 90 99 03/19/19 10:01 88 129/67 98 03/19/19 10:00 88 99 03/19/19 09:50 92 H 97 03/19/19 09:40 91 H 98 03/19/19 09:30 90 98 03/19/19 09:20 91 H 98 03/19/19 09:10 93 H 98 03/19/19 09:05 94 H 21 98 03/19/19 09:01 97 H 127/54 L 97 03/19/19 09:00 99 H 93 03/19/19 08:50 94 H 97 03/19/19 08:40 95 H 97 03/19/19 08:30 97 H 96 03/19/19 08:20 96 H 96 03/19/19 08:10 37.7 C H 96 H 95 03/19/19 08:01 99 H 115/60 96 03/19/19 08:00 98 H 96 03/19/19 07:50 98 H 96 03/19/19 07:40 101 H 96 03/19/19 07:38 98 H 14 96 03/19/19 07:30 100 H 97 03/19/19 07:20 98 H 97 03/19/19 07:10 97 H 96 03/19/19 07:01 99 H 120/59 L 97 03/19/19 07:00 99 H 97 03/19/19 06:10 99 H 96 03/19/19 06:01 100 H 141/70 H 96 03/19/19 06:00 99 H 97 03/19/19 05:50 100 H 97 03/19/19 05:44 89 18 98 03/19/19 05:40 100 H 97 03/19/19 05:30 109 H 97 03/19/19 05:20 98 H 98 03/19/19 05:10 94 H 97 03/19/19 05:01 96 H 120/66 96 03/19/19 05:00 96 H 96 03/19/19 04:50 99 H 97 03/19/19 04:40 96 H 96 03/19/19 04:30 99 H 95 03/19/19 04:20 124 H 95 03/19/19 04:10 93 H 93 03/19/19 04:01 36.7 C 90 130/83 97 03/19/19 04:00 92 H 97 03/19/19 03:50 89 97 03/19/19 03:40 91 H 96 03/19/19 03:30 92 H 96 03/19/19 03:23 97 H 111/70 96 03/19/19 02:50 93 H 98 03/19/19 02:40 89 98 03/19/19 02:30 88 99 03/19/19 02:20 85 99 03/19/19 02:10 87 98 03/19/19 02:01 86 121/68 98 03/19/19 02:00 85 16 99 03/19/19 01:50 87 99 03/19/19 01:40 86 99 03/19/19 01:30 87 99 03/19/19 01:20 83 99 03/19/19 01:10 82 99 03/19/19 01:01 87 117/71 98 03/19/19 01:00 83 99 03/19/19 00:50 84 99 Laboratory Results Laboratory Results - last 24 hr 03/17/19 03/18/19 03/18/19 16:23 14:54 17:00 WBC RBC Hgb POC Hgb 7.8 L Hct POC Hct 23 L MCV MCH MCHC RDW Std Deviation RDW Coeff of Johanne Plt Count MPV Absolute Nucleated RBC Nucleated RBC % (auto) PT INR APTT PTT Ratio Fibrinogen POC Sodium 144 Sodium POC Potassium 4.1 Potassium POC Chloride 111 Chloride Carbon Dioxide POC Total CO2 23 L Anion Gap POC Anion Gap 15.0 L POC BUN 29 H BUN Creatinine POC Creatinine 0.7 Est Cr Clr Drug Dosing Est GFR ( Amer) Est GFR (Non-Af Amer) BUN/Creatinine Ratio Glucose POC Glucose POC Glucose (other) 177 H Calcium POC Ioniz Calcium Fabian 1.48 H Phosphorus Magnesium Total Bilirubin AST ALT Alkaline Phosphatase Troponin I Total Protein Albumin Globulin Albumin/Globulin Ratio Nasal Screen MRSA (PCR) Negative Blood Type A Positive Antibody Screen NEGATIVE Crossmatch See Detail 03/18/19 03/18/19 03/18/19 18:06 18:06 18:06 WBC RBC Hgb 11.8 L POC Hgb Hct 33.5 L POC Hct MCV MCH MCHC RDW Std Deviation RDW Coeff of Johanne Plt Count MPV Absolute Nucleated RBC Nucleated RBC % (auto) PT 10.9 INR 1.1 APTT 22.8 PTT Ratio 0.8 Fibrinogen 323 POC Sodium Sodium 143 POC Potassium Potassium 4.8 POC Chloride Chloride 111 H Carbon Dioxide 22 POC Total CO2 Anion Gap 10.0 POC Anion Gap POC BUN BUN 28 H Creatinine 0.89 POC Creatinine Est Cr Clr Drug Dosing 65.1 Est GFR ( Amer) 73.0 Est GFR (Non-Af Amer) 63.0 BUN/Creatinine Ratio 32.1 H Glucose 200 H POC Glucose POC Glucose (other) Calcium 8.6 POC Ioniz Calcium Fabian Phosphorus 3.3 Magnesium 2.1 Total Bilirubin 1.1 H D AST 31 ALT 17 Alkaline Phosphatase 47 Troponin I Total Protein 5.3 L D Albumin 2.5 L Globulin 2.8 Albumin/Globulin Ratio 0.9 Nasal Screen MRSA (PCR) Blood Type Antibody Screen Crossmatch 03/18/19 03/19/19 03/19/19 23:56 04:34 04:34 WBC 10.74 RBC 3.76 L Hgb 11.4 L POC Hgb Hct 32.6 L POC Hct MCV 86.7 MCH 30.3 MCHC 35.0 RDW Std Deviation 47.9 H RDW Coeff of Johanne 15.3 H Plt Count 114 L MPV 9.7 Absolute Nucleated RBC 0.11 H Nucleated RBC % (auto) 1.1 PT INR APTT PTT Ratio Fibrinogen POC Sodium Sodium 139 POC Potassium Potassium 4.8 POC Chloride Chloride 108 H Carbon Dioxide 26 POC Total CO2 Anion Gap 5.0 POC Anion Gap POC BUN BUN 32 H Creatinine 1.01 POC Creatinine Est Cr Clr Drug Dosing 55.6 Est GFR ( Amer) 62.6 Est GFR (Non-Af Amer) 54.0 BUN/Creatinine Ratio 31.5 H Glucose 165 H POC Glucose 152 H POC Glucose (other) Calcium 8.4 L POC Ioniz Calcium Fabian Phosphorus Magnesium 2.1 Total Bilirubin AST ALT Alkaline Phosphatase Troponin I Total Protein Albumin Globulin Albumin/Globulin Ratio Nasal Screen MRSA (PCR) Blood Type Antibody Screen Crossmatch 03/19/19 04:34 WBC RBC Hgb POC Hgb Hct POC Hct MCV MCH MCHC RDW Std Deviation RDW Coeff of Johanne Plt Count MPV Absolute Nucleated RBC Nucleated RBC % (auto) PT INR APTT PTT Ratio Fibrinogen POC Sodium Sodium POC Potassium Potassium POC Chloride Chloride Carbon Dioxide POC Total CO2 Anion Gap POC Anion Gap POC BUN BUN Creatinine POC Creatinine Est Cr Clr Drug Dosing Est GFR ( Amer) Est GFR (Non-Af Amer) BUN/Creatinine Ratio Glucose POC Glucose POC Glucose (other) Calcium POC Ioniz Calcium Fabian Phosphorus Magnesium Total Bilirubin AST ALT Alkaline Phosphatase Troponin I 3.580 H* Total Protein Albumin Globulin Albumin/Globulin Ratio Nasal Screen MRSA (PCR) Blood Type Antibody Screen Crossmatch
--- NOTE | 2019-03-19 16:03 | Hospitalist Progress Note ---
Date of Service March 19, 2019 Assessment & Plan (1) Femur fracture, right: Patient is a 78-year-old female who presents with mechanical fall resulting in right hip fracture. R Femur Xay: Oblique moderately angled fracture distal femoral shaft. L Femur Xray: Limited study suggesting a fracture of the left femoral neck. R Knee Xray: General degenerative change. No acute process CT Head: No acute intracranial abnormality. CT C-Spine: No acute bony abnormality. CT Hip:Severe degenerative change. No evidence for fracture. S/P Extubation on 03/19/19 S/P ORIF--POD # 1 S/P 4 units PRBCs Acute blood loss anemia--PostOp Troponin elevation likely due to demand ischemia Pain Control Appreciate Ortho/Cardiology/Critical Care Input Monitor CBC Bowel regimen to prevent constipation (2) Hypoxia: Pt was found by EMS to have O2 sat 80% In ER 81% on RA and increased to 98% on 4L. CT chest: Lungs are clear. No significant abnormality identified within the chest. (Was not PE study) Venous Doppler:No DVT within the right or left lower extremity. Limited exam as the patient could not tolerate compression Saturating on Nasal Cannula Supplemental Oxygen PRN Hypoxia likely due to Obesity hypoventilation. (3) Renal insufficiency: Cr: 1.22>>>1.0 Unknown baseline Cr improved with IVF Obtain outside records Monitor renal function (4) Coronary artery disease: (5) Cardiac defibrillator in place: Ischemic cardiomyopathy H/O [place] in 2006. Pt reports had to have shock. S/P PCI. H/O ICD placed, no reported firings since placement. Currently not on any cardiac meds Ideally need to be on aspirin, metoprolol, statin, MARLA or ARB Obtain outside records ECHO: Mild concentric LVH, severely reduced LV systolic function, EF 25 to 30%, akinesis of the inferior/inferolateral diaz With otherwise, moderate global hypokinesis. Grade 1 diastolic dysfunction. Aortic wall sclerosis moderate, without significant aortic valvular stenosis Cardiology on board Started on metoprolol, Lipitor (6) Colon cancer: S/P chemo, radiation, colostomy Denies abdominal pain (7) Hypothyroidism: TSH: 5.5 Normal Free T4 continue levothyroxine DVT Px: Lovenox SQ Code Status Full Code Disposition: To be determined Follows with Dr Romero in [place] for routine care Subjective Patient is seen and examined at bedside Patient is extubated this morning Troponin elevation noted She denies chest pain, SOB, nausea, dizziness, abdominal pain Has some pain at hip fracture surgery today Appreciate Cardiology Input IV Heparin ggt discontinued Review of Systems Review of Systems: All systems reviewed & are unremarkable except as noted in HPI & below Physical Exam Physical Exam: Physical Exam: Vitals signs as noted above General Appearance:Morbidly Obese, no apparent distress Head: normocephalic, Atraumatic Eyes: normal inspection, EOMI Neck: supple, Trachea midline Respiratory/Chest: Normal breath sounds, CTA Cardiovascular: S1, S2, No murmur Abdomen/GI:Soft, Non tender, Bowel sounds present Extremities/Musculoskelatal:normal inspection, RLE immobilizer +Lymphedema Neurologic/Psych:AAOX3, grossly no focal neurological deficits Skin: normal color, warm Results & Data Vital Signs (Past 12 Hours) Vital Signs Temp Pulse Resp BP Pulse Ox 03/19/19 14:01 80 123/59 L 100 03/19/19 14:00 80 100 03/19/19 13:50 80 99 03/19/19 13:40 88 79 L 03/19/19 13:30 82 100 03/19/19 13:20 80 100 03/19/19 13:10 83 100 03/19/19 13:01 85 157/63 H 100 03/19/19 13:00 86 100 03/19/19 12:50 88 99 03/19/19 12:40 90 99 03/19/19 12:30 87 99 03/19/19 12:20 91 H 98 03/19/19 12:10 95 H 90 03/19/19 12:01 94 H 126/68 95 03/19/19 12:00 37.6 C H 95 H 94 03/19/19 11:50 91 H 100 03/19/19 11:40 86 100 03/19/19 11:30 84 99 03/19/19 11:20 85 99 03/19/19 11:10 88 100 03/19/19 11:01 85 133/70 99 03/19/19 11:00 86 99 03/19/19 10:50 87 99 03/19/19 10:40 87 99 03/19/19 10:30 90 100 03/19/19 10:20 86 99 03/19/19 10:10 90 99 03/19/19 10:01 88 129/67 98 05/27/19 10:00 88 99 03/19/19 09:50 92 H 97 03/19/19 09:40 91 H 98 03/19/19 09:30 90 98 03/19/19 09:20 91 H 98 03/19/19 09:10 93 H 98 03/19/19 09:05 94 H 21 98 03/19/19 09:01 97 H 127/54 L 97 03/19/19 09:00 99 H 93 03/19/19 08:50 94 H 97 03/19/19 08:40 95 H 97 03/19/19 08:30 97 H 96 03/19/19 08:20 96 H 96 03/19/19 08:10 37.7 C H 96 H 95 03/19/19 08:01 99 H 115/60 96 03/19/19 08:00 98 H 96 03/19/19 07:50 98 H 96 03/19/19 07:40 101 H 96 03/19/19 07:38 98 H 14 96 03/19/19 07:30 100 H 97 03/19/19 07:20 98 H 97 03/19/19 07:10 97 H 96 03/19/19 07:01 99 H 120/59 L 97 03/19/19 07:00 99 H 97 03/19/19 06:10 99 H 96 03/19/19 06:01 100 H 141/70 H 96 03/19/19 06:00 99 H 97 03/19/19 05:50 100 H 97 03/19/19 05:44 89 18 98 03/19/19 05:40 100 H 97 03/19/19 05:30 109 H 97 03/19/19 05:20 98 H 98 03/19/19 05:10 94 H 97 03/19/19 05:01 96 H 120/66 96 03/19/19 05:00 96 H 96 03/19/19 04:50 99 H 97 03/19/19 04:40 96 H 96 03/19/19 04:30 99 H 95 03/19/19 04:20 124 H 95 03/19/19 04:10 93 H 93 03/19/19 04:01 36.7 C 90 130/83 97 Laboratory Results Short CBC 03/18/19 03/19/19 Range/Units 18:06 04:34 WBC 10.74 (4.8-10.8) K/uL Hgb 11.8 L 11.4 L (12.0-16.0) g/dL Hct 33.5 L 32.6 L (37-47) % Plt Count 114 L (130-400) K/uL BMP 03/18/19 03/19/19 18:06 04:34 Sodium 143 139 Potassium 4.8 4.8 Chloride 111 H 108 H Carbon Dioxide 22 26 BUN 28 H 32 H Creatinine 0.89 1.01 Glucose 200 H 165 H Calcium 8.6 8.4 L Cardiac Enzymes 03/19/19 Range/Units 04:34 Troponin I 3.580 H* (0-0.045) ng/ml Liver Function 03/18/19 Range/Units 18:06 Total Bilirubin 1.1 H D (0.2-1) mg/dl AST 31 (15-37) U/L ALT 17 (12-78) U/L Alkaline Phosphatase 47 (45-117) U/L Albumin 2.5 L (3.4-5.0) gm/dl (1) Femur fracture, right Encounter type: initial encounter Femur location: shaft Fracture morphology: unspecified fracture morphology Fracture type: closed Qualified Code(s): S72.301A - Unspecified fracture of shaft of right femur, initial encounter for closed fracture
[2019-03-20 04:50] LABS: Hematocrit (blood only) 26.7 % (37-47); Hemoglobin 9.1 g/dL (12.0-16.0); Mean Corpuscular Hgb Conc 34.1 g/dL (32-36); Mean Corpuscular Volume 88.1 fL (80-100); Mean Platelet Volume 9.8 fL (7.4-10.4); Nucleated RBC # (auto) 0.08 K/uL (0-0); Nucleated RBC % (auto) 0.8 %; Platelet Count 101 K/uL (130-400); RDW Coefficient of Variation 15.3 % (11.5-14.5); RDW Standard Deviation 49.5 fL (36.4-46.3); Red Blood Count 3.03 M/uL (4.2-5.4); White Blood Count 10.69 K/uL (4.8-10.8)
[2019-03-20 05:00] LABS: Partial Thromboplastin Time 27.1 Seconds (21.0-31.0)
[2019-03-20 05:17] LABS: BUN Creatinine Ratio 33.2 (10-20); Calcium 7.6 mg/dl (8.5-10.1); Creatinine Clr Calc Pharmacy 76.9 ml/min; Est GFR (African American) 92.7; Potassium 3.8 mmol/L (3.5-5.1)
[2019-03-20 06:07] LABS: Phosphorus 1.9 mg/dl (2.5-4.9)
[2019-03-20] MEDS: LEVOTHYROXINE SODIUM 75 MCG TABLET PO SCH (06:16)
--- NOTE | 2019-03-20 07:17 | XRay Report ---
XR chest 1V portable CLINICAL HISTORY: Respiratory failure COMPARISON STUDY: 03/19/2019 FINDINGS: The heart is enlarged. There is a left subclavian pacer/defibrillator present. The nasogast fernando tube and endotracheal tubes have been removed. There are persistent atelectatic changes left lung base. There is no failure. There is no lobar consolidation.[ IMPRESSION: 1. Interval removal of the endotracheal tube and nasogastric tubes 2. Linear opacities at the left lung base likely atelectatic Electronically signed by: Gorge Trejo M.D. 03/20/2019 7:16 AM
--- NOTE | 2019-03-20 07:46 | Anesthesiology Progress Note ---
Date of Service March 20, 2019 Anesthesia Post Procedure Vital Signs Vital Signs: Temp Pulse Resp BP Pulse Ox 03/20/19 03:01 84 20 137/60 96 03/20/19 02:01 82 19 139/69 98 03/20/19 01:01 81 19 124/59 L 99 03/20/19 00:01 36.8 C 85 21 112/48 L 98 03/19/19 23:01 78 17 129/68 100 03/19/19 22:01 78 21 129/58 L 99 03/19/19 21:01 80 17 121/51 L 100 03/19/19 20:51 81 22 145/62 H 99 03/19/19 19:01 36.9 C 85 18 138/62 98 03/19/19 16:01 83 115/51 L 98 03/19/19 16:00 36.9 C 82 95 03/19/19 15:50 86 82 L 03/19/19 15:40 85 96 03/19/19 15:30 82 98 03/19/19 15:20 83 99 03/19/19 15:10 82 100 03/19/19 15:01 79 137/62 100 03/19/19 15:00 77 100 03/19/19 14:50 79 100 03/19/19 14:40 83 100 03/19/19 14:30 81 100 03/19/19 14:20 80 99 03/19/19 14:10 79 100 03/19/19 14:02 81 99 03/19/19 14:01 80 123/59 L 100 03/19/19 14:00 80 100 03/19/19 13:50 80 99 03/19/19 13:40 88 79 L 03/19/19 13:30 82 100 03/19/19 13:20 80 100 03/19/19 13:10 83 100 03/19/19 13:01 85 157/63 H 100 03/19/19 13:00 86 100 03/19/19 12:50 88 99 03/19/19 12:40 90 99 03/19/19 12:30 87 99 03/19/19 12:20 91 H 98 03/19/19 12:10 95 H 90 03/19/19 12:01 94 H 126/68 95 03/19/19 12:00 37.6 C H 95 H 94 03/19/19 11:50 91 H 100 03/19/19 11:40 86 100 03/19/19 11:30 84 99 03/19/19 11:20 85 99 03/19/19 11:10 88 100 03/19/19 11:01 85 133/70 99 03/19/19 11:00 86 99 03/19/19 10:50 87 99 03/19/19 10:40 87 99 03/19/19 10:30 90 100 03/19/19 10:20 86 99 03/19/19 10:10 90 99 03/19/19 10:01 88 129/67 98 03/19/19 10:00 88 99 03/19/19 09:50 92 H 97 03/19/19 09:40 91 H 98 03/19/19 09:30 90 98 03/19/19 09:20 91 H 98 03/19/19 09:10 93 H 98 03/19/19 09:05 94 H 21 98 03/19/19 09:01 97 H 127/54 L 97 03/19/19 09:00 99 H 93 03/19/19 08:50 94 H 97 03/19/19 08:40 95 H 97 03/19/19 08:30 97 H 96 03/19/19 08:20 96 H 96 03/19/19 08:10 37.7 C H 96 H 95 03/19/19 08:01 99 H 115/60 96 03/19/19 08:00 98 H 96 03/19/19 07:50 98 H 96 Pain Intensity Right Leg: Pain Intensity: 9 Notes Mental Status: alert / awake / arousable and participated in evaluation Patient Amnestic to Procedure: Yes Nausea / Vomiting: adequately controlled Pain: adequately controlled Airway Patency, RR, SpO2: stable & adequate BP & HR: stable & adequate Hydration State: stable & adequate Anesthetic Complications: no major complications apparent and Pt Satisfied with anesthetic care
[2019-03-20] MEDS ORDERED: POTASSIUM PHOS 3 MMOL/1 ML INFUSION IV STA (07:57)
[2019-03-20] MEDS ORDERED: POTASSIUM PHOSPHATE 15 MMOL in SODIUM CHLORIDE 0.9% 250 ML IV ONE (08:00)
[2019-03-20] MEDS: METOPROLOL TARTRATE 25 MG TAB PO SCH ×2 (09:08→22:00)
[2019-03-20] MEDS: ATORVASTATIN 40 MG TAB PO SCH (09:09)
[2019-03-20] MEDS: fentaNYL citrate 100 MCG/2 ML VIAL IV PRN ×2 (09:26→19:32)
[2019-03-20 09:28] LABS: Hematocrit (blood only) 25.6 % (37-47); Hemoglobin 8.6 g/dL (12.0-16.0)
[2019-03-20] MEDS: HEPARIN SODIUM (PORCINE) 7,500 UNITS in SYRINGE 0 ML SQ SCH ×2 (09:56→16:52)
--- NOTE | 2019-03-20 11:22 | Critical Care Progress Note ---
Date of Service March 20, 2019 Assessment & Plan (1) Admitted to intensive care unit: 78-year-old female who was admitted to the ICU for postoperative management of a right femur fracture. She is known to have HFrEF (EF 25 to 30% with grade 1 diastolic dysfunction) secondary to CAD s/p AICD placement and Renal insufficiency. In addition she has history of colon cancer status post chemoradiation and colostomy, hypothyroidism. Surgery was emergent and she required dobutamine as well as intermittent phenylephrine, she received 4 units of packed red blood cells in the operating room, by the end of the case the patient had been weaned off the dobutamine. Elevated troponin noted and she was started on metoprolol and tolerated it. heparin SC was given but no drip for risk and benefit especially that the patient had no symptoms and No ECG changes. drop in Hb. PLAN: Neuro: Pain -Fentanyl IV Resp: Postoperative respiratory insufficiency Extubating tolerating O2 NC and will place on BIPAP if she has problems incentive spirometer once extubated. titrate O2 to SPO2 >95%. albuterol for enhanced secretion clearance CV: Ischemic cardiomyopathy No longer requires pressors will start small doses of beta blockers and MARLA inhibitiors and escalate the 25 mg metoprolol PO BID and then escalate. atorvastatin 40 mg PO daily GI pantoprazole 20 mg daily Diet as tolerated. Surgery aggrees. Renal and electrolytes FU and replete lytes. today she had hypophosphatemia and she was repleted. Albumin is low and we are feeding her. Hematology Hb dropping will repeat a central sample and decide on transfusion. platelets are down to 100s. This is likely consumption post surgery and dilution post PRBC. If she needs further PRBC we would give plateletes. ID [email or web address] post op given DVT prophylaxis heparin 7500 SC TID Endocrine: ICU hyperglycemia protocol continue levothyroxine 75 mcg daily lines and access: Peripheral IVs, She has fermin and will keep it for now hematology Hb up to 11.4 from 9.4 Code Status: Full I have personally spent 50 minutes of critical care time in the direct management of this patient. Subjective Patient is seen and examined at bedside. She was extubated yesterday and has tolerated BIPAP then O2 nasal cannula currently at 2 LPM Troponin elevation noted yesterday and cardiology consulted. Given normal ECG she was nt placed on heparin drip and this was believed to be related to periop erative hemodynamic instability. She currently is trending down Hb and never complained of CP. TOlerated 12.5 metoprolol and I increased the dose to 25 mg BID today She denies chest pain, SOB, nausea, dizziness, abdominal pain tolerated food. Her Hb is noted to be going down but she was a difficult stick so the levels were from an IV site and then finger stick. A midline is ordered and will repeat Hb through it and if she is dropping will transfuse with PRBC and stop SC heparin. Her PTT was within normal throughout. She really does not move much and we asked PT to evaluate her. Appreciate Cardiology Input Review of Systems Review of Systems: All systems reviewed & are unremarkable except as noted in HPI & below Physical Exam Constitutional: WD/WN, vitals as above Eyes: PERRL, conjunctivae normal, anicteric sclerae Neck: trachea midline, no thyromegaly + short neck and + thick neck Respiratory: Aftert he lasix yesterday and extubation she has had clear breath sounds Cardiovascular: RRR, no murmur, no edema Gastrointestinal (Abdomen): normal bowel sounds, soft, nontender, no hepatosplenomegaly Inspection/Auscultation: abdomen normal to inspection Musculoskeletal: Bilateral L and U extremity swelling. Results & Data Vital Signs (Past 12 Hours) Vital Signs Temp Pulse Resp BP Pulse Ox 03/20/19 08:01 36.8 C 86 22 102/45 L 99 03/20/19 07:53 80 03/20/19 07:01 83 21 118/55 L 99 03/20/19 03:01 84 20 137/60 96 03/20/19 02:01 82 19 139/69 98 03/20/19 01:01 81 19 124/59 L 99 03/20/19 00:01 36.8 C 85 21 112/48 L 98
[2019-03-20] MEDS: PANTOprazole 40 MG TAB PO SCH (13:25)
--- NOTE | 2019-03-20 15:47 | Orthopedic Progress Note ---
Date of Service March 20, 2019 Assessment & Plan (1) Femur fracture, right: Postop day 2 status post ORIF right distal femur fracture. Continue nonweightbearing on the right lower extremity. With her current method of immobilization, I am not sure to go into work well for trying to get her out of bed at this point in time. I will consult orthotics to see if there is a possibility of making a custom hinged knee brace but the patient to be fitted with. DVT prophylaxis with heparin subcu every 8 hours. Pain management is currently fentanyl 50 mcg every 2 hours. Subjective Patient is sitting up in bed. She is awake and alert. She has no complaints at this time. Pain is controlled. Physical Exam Physical Exam: She has a total of 2 different types of immobilizers that are completely wrapped around the leg. Apparently there is no size that fits her well. This is loosened up to inspect the dressing which is a Prevena excisional wound VAC. There is no erythema around the dressing and the dressing is functioning well. There is a mild amount of drainage noted in the collection tube. No attempts are made to do range of motion of the knee at this time due to her recent ORIF. She has good range of motion of her right ankle and toes. Sensation is intact. Toes are pink and warm and cap refill is less than 2 seconds. She does have moderate swelling noted of the feet and ankles. Results & Data Vital Signs (Past 12 Hours) Vital Signs Temp Pulse Resp BP Pulse Ox 03/20/19 12:26 36.9 C 76 20 112/67 97 03/20/19 12:00 75 20 99 03/20/19 11:00 73 19 107/51 L 99 03/20/19 10:45 85 23 102/59 L 88 L 03/20/19 10:15 88 18 98/61 L 98 03/20/19 09:15 89 22 101/49 L 99 03/20/19 08:01 36.8 C 86 22 102/45 L 99 03/20/19 07:53 80 03/20/19 07:01 83 21 118/55 L 99 (1) Femur fracture, right Encounter type: initial encounter Femur location: shaft Fracture morphology: unspecified fracture morphology Fracture type: closed Qualified Code(s): S72.301A - Unspecified fracture of shaft of right femur, initial encounter for closed fracture
--- NOTE | 2019-03-20 16:31 | Hospitalist Progress Note ---
Date of Service March 20, 2019 Assessment & Plan (1) Femur fracture, right: Patient is a 78-year-old female who presents with mechanical fall resulting in right hip fracture. R Femur Xay: Oblique moderately angled fracture distal femoral shaft. L Femur Xray: Limited study suggesting a fracture of the left femoral neck. R Knee Xray: General degenerative change. No acute process CT Head: No acute intracranial abnormality. CT C-Spine: No acute bony abnormality. CT Hip:Severe degenerative change. No evidence for fracture. S/P Extubation on 03/19/19 S/P ORIF--POD # 2 S/P 4 units PRBCs Acute blood loss anemia--PostOp Type 2 [place] due to demand ischemia Troponin levels trending down Pain Control Appreciate Ortho/Cardiology/Critical Care Input Monitor CBC Bowel regimen to prevent constipation Nonweightbearing on the right lower extremity (2) Hypoxia: Pt was found by EMS to have O2 sat 80% In ER 81% on RA CT chest: Lungs are clear. No significant abnormality identified within the chest. (Was not PE study) Venous Doppler:No DVT within the right or left lower extremity. Limited exam as the patient could not tolerate compression Saturating well on Nasal Cannula Supplemental Oxygen PRN Hypoxia likely due to Obesity hypoventilation. Continue Spirometer (3) Renal insufficiency: Acute Renal failure--Resolved Cr: 1.22>>>1.0>>0.73 Unknown baseline Cr improved with IVF Obtain outside records Monitor renal function (4) Coronary artery disease: (5) Cardiac defibrillator in place: Ischemic cardiomyopathy H/O [place] in 2006. Pt reports had to have shock. S/P PCI. H/O ICD placed, no reported firings since placement. Currently not on any cardiac meds Ideally need to be on aspirin, metoprolol, statin, MARLA or ARB Obtain outside records ECHO: Mild concentric LVH, severely reduced LV systolic function, EF 25 to 30%, akinesis of the inferior/inferolateral diaz With otherwise, moderate global hypokinesis. Grade 1 diastolic dys function. Aortic wall sclerosis moderate, without significant aortic valvular stenosis Cardiology on board Started on metoprolol, Lipitor (6) Colon cancer: S/P chemo, radiation, colostomy Denies abdominal pain (7) Hypothyroidism: TSH: 5.5 Normal Free T4 continue levothyroxine DVT Px: Heparin SQ Code Status Full Code Disposition: To be determined Follows with Dr Romero in [place] for routine care Subjective Patient is seen and examined at bedside Reports leg pain at surgical site Offers no other complaints Saturating 97% on 3 liters of NC Hb dropped to 8.6 Troponin trending down Troponin elevation noted She denies chest pain, SOB, nausea, dizziness, abdominal pain No overt bleeding issues Review of Systems Review of Systems: All systems reviewed & are unremarkable except as noted in HPI & below Physical Exam Physical Exam: Physical Exam: Vitals signs as noted above General Appearance:Morbidly Obese, no apparent distress Head: normocephalic, Atraumatic Eyes: normal inspection, EOMI Neck: supple, Trachea midline Respiratory/Chest: Normal breath sounds, CTA Cardiovascular: S1, S2, No murmur Abdomen/GI:Soft, Non tender, Bowel sounds present Extremities/Musculoskelatal:normal inspection, RLE immobilizer +Lymphedema Neurologic/Psych:AAOX3, grossly no focal neurological deficits Skin: normal color, warm Results & Data Vital Signs (Past 12 Hours) Vital Signs Temp Pulse Resp BP Pulse Ox 03/20/19 15:54 76 03/20/19 12:26 36.9 C 76 20 112/67 97 03/20/19 12:00 75 20 99 03/20/19 11:00 73 19 107/51 L 99 03/20/19 10:45 85 23 102/59 L 88 L 03/20/19 10:15 88 18 98/61 L 98 03/20/19 09:15 89 22 101/49 L 99 03/20/19 08:01 36.8 C 86 22 102/45 L 99 03/20/19 07:53 80 03/20/19 07:01 83 21 118/55 L 99 Laboratory Results Short CBC 03/20/19 03/20/19 Range/Units 04:16 09:04 WBC 10.69 (4.8-10.8) K/uL Hgb 9.1 L 8.6 L (12.0-16.0) g/dL Hct 26.7 L 25.6 L (37-47) % Plt Count 101 L (130-400) K/uL BMP 03/20/19 04:16 Sodium 138 Potassium 3.8 D Chloride 105 Carbon Dioxide 29 BUN 24 H Creatinine 0.73 Glucose 127 H Calcium 7.6 L Cardiac Enzymes 03/19/19 03/20/19 Range/Units 20:08 04:16 Troponin I 2.880 H* 2.180 H* (0-0.045) ng/ml (1) Femur fracture, right Encounter type: initial encounter Femur location: shaft Fracture morphology: unspecified fracture morphology Fracture type: closed Qualified Code(s): S72.301A - Unspecified fracture of shaft of right femur, initial encounter for closed fracture
[2019-03-20 19:36] LABS: Hematocrit (blood only) 24.4 % (37-47); Hemoglobin 8.3 g/dL (12.0-16.0)
--- NOTE | 2019-03-20 19:48 | XRay Report ---
XR chest 1V portable CLINICAL HISTORY: central line inserted COMPARISON STUDY: Chest CT March 17, 2019. Chest radiograph performed earlier today. FINDINGS: There is no pneumothorax. A left subclavian pacer/AICD remains in place. Moderate cardiomeg asif is noted. Linear left basilar opacity favors atelectasis. There is no evidence for pulmonary melanie a. Interval insertion of a left sided central line is noted. The tip projects over the aortic arch. IMPRESSION: No pneumothorax. Interval placement of a left-sided central line. Catheter tip projects over the aortic arch. This may be venous in location however arterial positioning cannot be excluded based on this exam. Discussed with Joselo Jeronimo at time of interpretation. Electronically signed by: Edmund Pedraza M.D. 03/20/2019 7:47 PM
[2019-03-20] MEDS ORDERED: LIDOCAINE HCL 1% 20 ML VIAL ONE (19:54)
--- NOTE | 2019-03-20 20:55 | XRay Report ---
XR chest 1V portable CLINICAL HISTORY: Reposition of left IJ CVC COMPARISON STUDY: Chest radiograph March 20, 2019 at 7:11 PM. FINDINGS: Left subclavian pacer/AICD is in place. There is no pneumothorax. Cardiomegaly is unchanged . There is no evidence for pulmonary edema. The tip of the left sided central line projects over the superior aspect of the aortic arch. Left basilar opacity favors atelectasis. IMPRESSION: No pneumothorax. Tip of left-sided central line projects over the superior aspect of the aortic arch. This may be venous in location however arterial position cannot be excluded and a CT of the chest without contrast is recommended. Electronically signed by: Edmund Pedraza M.D. 03/20/2019 8:54 PM
--- NOTE | 2019-03-20 21:10 | CT Scan Report ---
CT OF THE CHEST WITHOUT IV CONTRAST CLINICAL HISTORY: abn Central line CXR but ABG+pressure are venous COMPARISON STUDY: Chest CT March 17, 2019. Chest radiograph March 20, 2019 8:[address] DOSE: 474.92 mGy.cm TECHNIQUE: Axial images of the chest were obtained without IV contrast. Images were reviewed in the axial, sagittal, and coronal planes. IV contrast was not administered for this examination. Automat ed exposure control was utilized for the study. A dose lowering technique was utilized adhering to t he principles of ALARA. FINDINGS: A left subclavian pacer/AICD is in place. There is no pneumothorax. No mediastinal hematom a is noted. The tip of the left internal jugular central line is within the proximal left brachioceph alic vein. The heart is moderately enlarged. There is no pericardial effusion. There is no pneumothor ax. Bilateral lower lobe opacities favor atelectasis. Central airways are patent. Bony thorax and upp er abdomen are unremarkable on this unenhanced exam. There is no thoracic lymphadenopathy. There is n o consolidation to suggest pneumonia. Moderate to extensive coronary artery calcification is present. IMPRESSION: 1. Tip of left internal jugular central line within the proximal left brachiocephalic vein. No pneumo thorax. No mediastinal hematoma. 2. Bilateral lower lobe opacities which favor atelectasis. Electronically signed by: Edmund Pedraza M.D. 03/20/2019 9:09 PM
[2019-03-21] MEDS: HEPARIN SODIUM (PORCINE) 7,500 UNITS in SYRINGE 0 ML SQ SCH ×4 (00:18→23:36)
[2019-03-21] MEDS: fentaNYL citrate 100 MCG/2 ML VIAL IV PRN ×2 (04:15→06:50)
[2019-03-21 05:23] LABS: Hematocrit (blood only) 24.5 % (37-47); Hemoglobin 8.2 g/dL (12.0-16.0); Mean Corpuscular Hgb Conc 33.5 g/dL (32-36); Mean Corpuscular Volume 89.4 fL (80-100); Mean Platelet Volume 9.8 fL (7.4-10.4); Nucleated RBC # (auto) 0.12 K/uL (0-0); Nucleated RBC % (auto) 1.2 %; Platelet Count 103 K/uL (130-400); RDW Coefficient of Variation 15.4 % (11.5-14.5); RDW Standard Deviation 49.7 fL (36.4-46.3); Red Blood Count 2.74 M/uL (4.2-5.4); White Blood Count 9.63 K/uL (4.8-10.8)
[2019-03-21 05:43] LABS: Partial Thromboplastin Time 27.9 Seconds (21.0-31.0)
[2019-03-21 05:46] LABS: BUN Creatinine Ratio 33.1 (10-20); Calcium 7.5 mg/dl (8.5-10.1); Creatinine Clr Calc Pharmacy 88.2 ml/min; Est GFR (African American) 100.5; Est GFR (Non-African American) 86.7
[2019-03-21 05:56] LABS: Phosphorus 1.3 mg/dl (2.5-4.9)
[2019-03-21] MEDS: LEVOTHYROXINE SODIUM 75 MCG TABLET PO SCH (06:02)
[2019-03-21] MEDS ORDERED: SODIUM PHOSPHATE 3 MMOL/1 ML 5 ML VIAL IV STA (06:41)
[2019-03-21] MEDS ORDERED: SODIUM PHOSPHATE IV ONE (06:45)
[2019-03-21] MEDS ORDERED: SODIUM CHLORIDE 0.9% IV ONE (06:45)
--- NOTE | 2019-03-21 06:53 | XRay Report ---
XR chest 1V portable CLINICAL HISTORY: Respiratory failure COMPARISON STUDY: 03/20/2019 FINDINGS: The heart remains enlarged. There is a left subclavian pacer/defibrillator present. There i s a left internal jugular central venous catheter the tip of which projects over the aortic knob. The re is no failure. There is no lobar consolidation. There are no large pleural effusions. There are pe rsistent linear atelectatic changes at the left lung base.[ IMPRESSION: Cardiomegaly. Stable basilar atelectasis. No acute findings. Electronically signed by: Gorge Trejo M.D. 03/21/2019 6:52 AM
[2019-03-21] MEDS: METOPROLOL TARTRATE 25 MG TAB PO SCH ×2 (08:22→20:41)
[2019-03-21] MEDS: PANTOprazole 40 MG TAB PO SCH (08:22)
[2019-03-21] MEDS: ATORVASTATIN 40 MG TAB PO SCH (08:22)
[2019-03-21] MEDS: TRAMADOL HCL 50 MG TABLET PO PRN ×3 (10:39→20:53)
[2019-03-21 12:34] LABS: iSTAT Venous Carbon Dioxide 28 mEq/l (24-31)
--- NOTE | 2019-03-21 12:52 | Critical Care Progress Note ---
Date of Service March 21, 2019 Assessment & Plan (1) Admitted to intensive care unit: 78-year-old female who was admitted to the ICU for postoperative management of a right femur fracture. She is known to have HFrEF (EF 25 to 30% with grade 1 diastolic dysfunction) secondary to CAD s/p AICD placement and Renal insufficiency. In addition she has history of colon cancer status post chemoradiation and colostomy, hypothyroidism. Surgery was emergent and she required dobutamine as well as intermittent phenylephrine, she received 4 units of packed red blood cells in the operating room, by the end of the case the patient had been weaned off the dobutamine. Elevated troponin noted and she was started on metoprolol and tolerated it. heparin SC was given but no drip for risk and benefit especially that the patient had no symptoms and No ECG changes. drop in Hb. PLAN: Neuro: Pain -Fentanyl IV Resp: Postoperative respiratory insufficiency Extubating tolerating O2 NC and will place on BIPAP if she has problems incentive spirometer once extubated. titrate O2 to SPO2 >95%. albuterol for enhanced secretion clearance CV: Ischemic cardiomyopathy No longer requires pressors 25 mg metoprolol PO BID and then escalate. atorvastatin 40 mg PO daily GI pantoprazole 20 mg daily Diet as tolerated. Surgery aggrees. Renal and electrolytes FU and replete lytes. today she had hypophosphatemia and she was repleted. Albumin is low and we are feeding her. Hematology Hb stabilized at 8 ID cefazolin post op given DVT prophylaxis heparin 7500 SC TID Endocrine: ICU hyperglycemia protocol continue levothyroxine 75 mcg daily lines and access: central line Left IJ day 2 DC fermin Code Status: Full I have personally spent 40 minutes of critical care time in the direct management of this patient. Subjective Seen at the bedside and is stable tolerating O@ via nasal cannula. No respiratory distress. We placed a central line for access/ Hb level stabilized. She offered no complaints and is stable to transfer to [facility]. Beta blockers have been titrated up to 25 mg BID Physical Exam Constitutional: WD/WN, vitals as above Eyes: PERRL, conjunctivae normal, anicteric sclerae Neck: trachea midline, no thyromegaly + short neck and + thick neck Respiratory: Auscultation: + crackles and + rales Cardiovascular: RRR, no murmur, no edema Gastrointestinal (Abdomen): normal bowel sounds, soft, nontender, no hepatosplenomegaly Inspection/Auscultation: abdomen normal to inspection Results & Data Vital Signs (Past 12 Hours) Vital Signs Temp Pulse Resp BP Pulse Ox 03/21/19 11:01 70 20 118/52 L 99 03/21/19 10:01 74 16 133/65 99 03/21/19 09:01 76 20 134/61 99 03/21/19 08:01 36.8 C 82 19 133/72 97 03/21/19 07:35 83 03/21/19 07:01 75 18 118/53 L 98 03/21/19 06:01 79 19 128/62 99 03/21/19 05:01 76 19 122/63 99 03/21/19 04:09 36.9 C 78 119/59 L 96 03/21/19 03:01 77 21 112/47 L 96 03/21/19 02:01 78 17 121/55 L 97 03/21/19 01:35 77 18 120/50 L 95
[2019-03-21 13:49] LABS: Patient Temperature 36.9; iSTAT Venous Blood Gas pCO2 (C 43 mmHg
[2019-03-21 13:50] LABS: iSTAT Site UMB Line; iSTAT SpO2 994
--- NOTE | 2019-03-21 14:16 | Orthopedic Progress Note ---
Date of Service March 21, 2019 Assessment & Plan (1) Femur fracture, right: Postop day 3 status post ORIF right distal femur fracture. Orthotics making a custom hinged knee brace to be locked in extension. Once brace is fitted, patient may be up to chair and start PT/OT as able. Continue nonweightbearing on the right lower extremity. DVT prophylaxis with heparin subcu every 8 hours. Pain management is currently fentanyl 50 mcg every 2 hours. Subjective POD 2 s/p ORIF Right Distal Femur Fx Pt seen earlier this AM. Had just finished breakfast. Appears comfortable. No new complaints. Physical Exam Physical Exam: Prevena wound vac intact and working well. Mild drainage noted in cannister. Makeshift immobilizer currently on. Moving toes well. Foot pink and warm. Results & Data Vital Signs (Past 12 Hours) Vital Signs Temp Pulse Resp BP Pulse Ox 03/21/19 11:01 70 20 118/52 L 99 03/21/19 10:01 74 16 133/65 99 03/21/19 09:01 76 20 134/61 99 03/21/19 08:01 36.8 C 82 19 133/72 97 03/21/19 07:35 83 03/21/19 07:01 75 18 118/53 L 98 03/21/19 06:01 79 19 128/62 99 03/21/19 05:01 76 19 122/63 99 03/21/19 04:09 36.9 C 78 119/59 L 96 03/21/19 03:01 77 21 112/47 L 96 (1) Femur fracture, right Encounter type: initial encounter Femur location: shaft Fracture morphology: unspecified fracture morphology Fracture type: closed Qualified Code(s): S72.301A - Unspecified fracture of shaft of right femur, initial encounter for closed fracture
--- NOTE | 2019-03-21 16:29 | Hospitalist Progress Note ---
Date of Service March 21, 2019 Assessment & Plan (1) Femur fracture, right: Patient is a 78-year-old female who presents with mechanical fall resulting in right hip fracture. R Femur Xay: Oblique moderately angled fracture distal femoral shaft. L Femur Xray: Limited study suggesting a fracture of the left femoral neck. R Knee Xray: General degenerative change. No acute process CT Head: No acute intracranial abnormality. CT C-Spine: No acute bony abnormality. CT Hip:Severe degenerative change. No evidence for fracture. S/P Extubation on 03/19/19 S/P ORIF--POD # 3 S/P 4 units PRBCs Acute blood loss anemia--PostOp Type 2 [place] due to demand ischemia Troponin levels trended down Pain Control Appreciate Ortho/Cardiology/Critical Care Input Monitor CBC Bowel regimen to prevent constipation Nonweightbearing on the right lower extremity for now Plan to be placed on custom hinged knee brace to be locked in extension Plan to be started on PT OT once the brace is fitted Hypophosphatemia Replace electrolytes as needed Monitor (2) Hypoxia: Pt was found by EMS to have O2 sat 80% In ER 81% on RA CT chest: Lungs are clear. No significant abnormality identified within the chest. (Was not PE study) Venous Doppler:No DVT within the right or left lower extremity. Limited exam as the patient could not tolerate compression Saturating well on Nasal Cannula Supplemental Oxygen PRN Hypoxia likely due to Obesity hypoventilation. Continue Spirometer (3) Renal insufficiency: Acute Renal failure--Resolved Cr: 1.22>>>1.0>>0.64 Unknown baseline Cr improved with IVF Obtain outside records Monitor renal function (4) Coronary artery disease: (5) Cardiac defibrillator in place: Ischemic cardiomyopathy H/O [place] in 2006. Pt reports had to have shock. S/P PCI. H/O ICD placed, no reported firings since placement. Currently not on any cardiac meds Ideally need to be on aspirin, metoprolol, statin, MARLA or ARB Obtain outside records ECHO: Mild concentric LVH, severely reduced LV systolic function, EF 25 to 30%, akinesis of the inferior/inferolateral diaz With otherwise, moderate global hypokinesis. Grade 1 diastolic dysfunction. Aortic wall sclerosis moderate, without significant aortic valvular stenosis Cardiology on board Continue metoprolol, Lipitor (6) Colon cancer: S/P chemo, radiation, colostomy Denies abdominal pain (7) Hypothyroidism: TSH: 5.5 Normal Free T4 continue levothyroxine DVT Px: Heparin SQ Code Status Full Code Disposition: To be determined Follows with Dr Romero in [place] for routine care Subjective Patient is seen and examined at bedside Saturating well on 2 L of nasal cannula No new complaints Complaints of leg pain at surgical site Hb stable Denies chest pain, SOB, nausea, dizziness, abdominal pain Family at bedside Review of Systems Review of Systems: All systems reviewed & are unremarkable except as noted in HPI & below Physical Exam Physical Exam: Physical Exam: Vitals signs as noted above General Appearance:Morbidly Obese, no apparent distress Head: normocephalic, Atraumatic Eyes: normal inspection, EOMI Neck: supple, Trachea midline Respiratory/Chest: Normal breath sounds, CTA Cardiovascular: S1, S2, No murmur Abdomen/GI:Soft, Non tender, Bowel sounds present Extremities/Musculoskelatal:normal inspection, RLE immobilizer +Lymphedema Neurologic/Psych:AAOX3, grossly no focal neurological deficits Skin: normal color, warm Results & Data Vital Signs (Past 12 Hours) Vital Signs Temp Pulse Pulse Pulse Resp BP BP 03/21/19 15:02 36.7 C 71 16 111/65 03/21/19 13:45 36.7 C 71 16 109/68 03/21/19 11:01 70 20 118/52 L 03/21/19 10:01 74 16 133/65 03/21/19 09:01 76 20 134/61 03/21/19 08:01 36.8 C 82 19 133/72 03/21/19 07:35 83 03/21/19 07:01 75 18 118/53 L 03/21/19 06:01 79 19 128/62 03/21/19 05:01 76 19 122/63 Pulse Ox 03/21/19 15:02 98 03/21/19 13:45 96 03/21/19 11:01 99 03/21/19 10:01 99 03/21/19 09:01 99 03/21/19 08:01 97 03/21/19 07:35 03/21/19 07:01 98 03/21/19 06:01 99 03/21/19 05:01 99 Laboratory Results Short CBC 03/20/19 03/21/19 Range/Units 19:27 05:00 WBC 9.63 (4.8-10.8) K/uL Hgb 8.3 L 8.2 L (12.0-16.0) g/dL Hct 24.4 L 24.5 L (37-47) % Plt Count 103 L (130-400) K/uL BMP 03/21/19 05:00 Sodium 138 Potassium 4.0 Chloride 104 Carbon Dioxide 30 BUN 21 H Creatinine 0.64 Glucose 130 H Calcium 7.5 L (1) Femur fracture, right Encounter type: initial encounter Femur location: shaft Fracture morphology: unspecified fracture morphology Fracture type: closed Qualified Code(s): S72.301A - Unspecified fracture of shaft of right femur, initial encounter for closed fracture
--- NOTE | 2019-03-21 20:36 | Operative Report ---
DATE OF OPERATION: 03/20/2019 PROCEDURE: Insertion of a left-sided central venous catheter, triple lumen. CONSENT: Consent was obtained prior from the patient herself after indications, potential complications and alternative managements were discussed with her. MONITORING: Throughout the procedure, the patient was monitored with continuous ECG tracing, pulse oximetry and blood pressure monitoring via cuff insufflation. ANESTHESIA: Local lidocaine was used to achieve anesthesia in this patient. DESCRIPTION OF THE PROCEDURE: The left aspect of the neck was draped and prepared using chlorhexidine as is customary after localization of the left IJ using ultrasound. The patient was draped in the usual fashion. The ultrasound probe was unsheathed in the sterile jacket and was used to locate the left IJ midway between the sternal notch and the angle of the jaw, 1% lidocaine without epinephrine was infiltrated into the skin and the subcutaneous tissue. Subsequently, the introducer needle was inserted under real time vision using the ultrasound probe and advanced until blood flow back was obtained in the syringe from the left IJ. We had to stick the patient twice. The syringe was removed when the flashback was noted and the guidewire was inserted. The needle was then removed. The skin was incised for about 3 mm and then the tract was dilated. The triple lumen central venous catheter was then inserted over the guidewire in the usual Seldinger fashion and secured at 15 cm to the skin. COMPLICATIONS: None apparent, however, subsequent chest x-ray showed that the line did not cross the midline and the line was rewired and another x-ray was obtained. Venous blood gas and pressure transducers confirmed that this is in the venous system. However, the second chest x-ray also showed that the line did not cross the midline into the right side and therefore a CAT scan of the chest was obtained and it confirmed that the tip of the catheter was in the venous system. ESTIMATED BLOOD LOSS: Less than 10 mL I attest to the content of the Intraoperative Record and any orders documented therein. Any exception s are noted below.
[2019-03-22] MEDS: TRAMADOL HCL 50 MG TABLET PO PRN ×2 (06:03→11:31)
[2019-03-22] MEDS ORDERED: COUGH DROP (SUGAR FREE) LOZ 24 LOZ/1 BOX BUCCAL PRN (06:06)
[2019-03-22] MEDS ORDERED: COUGH DROP (SUGAR FREE) LOZ 24 LOZ/1 BOX BUCCAL ONE (06:08)
[2019-03-22] MEDS: LEVOTHYROXINE SODIUM 75 MCG TABLET PO SCH (06:41)
[2019-03-22 08:37] LABS: Hematocrit (blood only) 23.3 % (37-47); Hemoglobin 7.6 g/dL (12.0-16.0); Mean Corpuscular Hgb Conc 32.6 g/dL (32-36); Mean Corpuscular Volume 91.4 fL (80-100); Nucleated RBC % (auto) 1.5 %; RDW Coefficient of Variation 15.5 % (11.5-14.5); RDW Standard Deviation 51.7 fL (36.4-46.3); Red Blood Count 2.55 M/uL (4.2-5.4); White Blood Count 6.91 K/uL (4.8-10.8)
[2019-03-22 08:48] LABS: Partial Thromboplastin Ratio 1.1; Partial Thromboplastin Time 29.3 Seconds (21.0-31.0)
[2019-03-22] MEDS ORDERED: SODIUM CHLORIDE 0.9% 250 ML IV PRN (09:08)
[2019-03-22 09:12] LABS: Est GFR (African American) 106.2; Potassium 3.8 mmol/L (3.5-5.1)
[2019-03-22 09:13] LABS: BUN Creatinine Ratio 28.9 (10-20); Calcium 7.6 mg/dl (8.5-10.1); Creatinine Clr Calc Pharmacy 104.2 ml/min; Est GFR (Non-African American) 91.7
[2019-03-22 09:15] LABS: Mean Platelet Volume 9.6 fL (7.4-10.4); Platelet Count 98 K/uL (130-400); Platelet Estimate Decreased (Normal)
[2019-03-22 09:19] LABS: Phosphorus 1.9 mg/dl (2.5-4.9)
[2019-03-22] MEDS: METOPROLOL TARTRATE 25 MG TAB PO SCH ×2 (09:19→21:26)
[2019-03-22] MEDS ORDERED: SODIUM PHOSPHATE 3 MMOL/1 ML INFUSION IV STA (09:24)
[2019-03-22] MEDS: ATORVASTATIN 40 MG TAB PO SCH (09:51)
[2019-03-22] MEDS: PANTOprazole 40 MG TAB PO SCH (09:51)
[2019-03-22] MEDS: HEPARIN SODIUM (PORCINE) 7,500 UNITS in SYRINGE 0 ML SQ SCH ×3 (09:51→23:58)
[2019-03-22] MEDS ORDERED: SODIUM PHOSPHATE 21 MMOL in SODIUM CHLORIDE 0.9% 500 ML IV SCH (10:00)
[2019-03-22] MEDS ORDERED: HYDROmorphone INJ 0.5 MG/0.5 ML SYR IV PRN (11:36)
[2019-03-22] MEDS: TAPENTADOL HCL 50 MG TAB PO PRN (14:54)
--- NOTE | 2019-03-22 15:35 | Orthopedic Progress Note ---
Date of Service March 22, 2019 Assessment & Plan (1) Femur fracture, right: Postop day 4 status post ORIF right distal femur fracture. Orthotics made a custom hinged knee brace to be locked in extension and are fitting patient today Once brace is fitted, patient may be up to chair and start PT/OT as able. Continue nonweightbearing on the right lower extremity. DVT prophylaxis with heparin subcu every 8 hours. Pain management - Tramadol discontinued. IV Hydromorphone and Nucynta started. (Pt with intolerance to Percocet and [place]) Subjective POD 4 s/p ORIF Right Distal Femur Pt seen earlier this AM. Lying in bed awake, alert. C/O some pain in the RLE in the area of the incision. No new complaints. Fredi Ott in the room as well with nursing to fit the patient with a hinged knee brace. Physical Exam Physical Exam: Prevena wound vac present. Small area of erythema noted on the distal edge of the dressing. Minimal drainage in the collection unit. No other changes noted. Results & Data Vital Signs (Past 12 Hours) Vital Signs Temp Pulse Pulse Pulse Resp BP BP 03/22/19 14:46 36.7 C 68 18 116/63 03/22/19 14:28 36.8 C 68 18 114/69 03/22/19 14:07 36.9 C 69 18 98/66 L 03/22/19 14:06 36.8 C 69 16 98/66 L 03/22/19 13:04 36.8 C 70 16 100/66 03/22/19 12:05 36.6 C 70 18 117/72 03/22/19 11:19 36.8 C 73 103/52 L 03/22/19 11:17 36.6 C 69 18 107/67 03/22/19 11:01 36.7 C 69 18 97/49 L 03/22/19 09:16 74 16 98/62 L 03/22/19 07:54 36.7 C 70 16 BP Pulse Ox 03/22/19 14:46 98 03/22/19 14:28 98 03/22/19 14:07 03/22/19 14:06 100 03/22/19 13:04 100 03/22/19 12:05 97 03/22/19 11:19 97 03/22/19 11:17 100 03/22/19 11:01 100 03/22/19 09:16 98 03/22/19 07:54 109/69 98 (1) Femur fracture, right Encounter type: initial encounter Femur location: shaft Fracture morphology: unspecified fracture morphology Fracture type: closed Qualified Code(s): S72.301A - Unspecified fracture of shaft of right femur, initial encounter for closed fracture
--- NOTE | 2019-03-22 17:21 | Hospitalist Progress Note ---
Date of Service March 22, 2019 Assessment & Plan (1) Femur fracture, right: Patient is a 78-year-old female who presents with mechanical fall resulting in right hip fracture. R Femur Xay: Oblique moderately angled fracture distal femoral shaft. L Femur Xray: Limited study suggesting a fracture of the left femoral neck. R Knee Xray: General degenerative change. No acute process CT Head: No acute intracranial abnormality. CT C-Spine: No acute bony abnormality. CT Hip:Severe degenerative change. No evidence for fracture. S/P Extubation on 03/19/19 S/P ORIF--POD # 4 S/P 4 units PRBCs Plan to give 2 more units PRBCs today as Hb dropped to 7.6 Acute blood loss anemia--PostOp Type 2 [place] due to demand ischemia Troponin levels trended down Pain Control Appreciate Ortho/Cardiology/Critical Care Input Monitor CBC Bowel regimen to prevent constipation Nonweightbearing on the right lower extremity for now Plan to be placed on custom hinged knee brace to be locked in extension Plan to be started on PT OT once the brace is fitted Fecal occult: negative Continue current management Consider imaging studies if hemoglobin continues to drop Hypophosphatemia Replace electrolytes as needed Monitor (2) Hypoxia: Pt was found by EMS to have O2 sat 80% In ER 81% on RA CT chest: Lungs are clear. No significant abnormality identified within the chest. (Was not PE study) Venous Doppler:No DVT within the right or left lower extremity. Limited exam as the patient could not tolerate compression Saturating well on Nasal Cannula Supplemental Oxygen PRN Hypoxia likely due to Obesity hypoventilation. Continue Spirometer (3) Renal insufficiency: Acute Renal failure--Resolved Cr: 1.22>>>1.0>>0.54 Unknown baseline Cr improved with IVF Obtain outside records Monitor renal function (4) Coronary artery disease: (5) Cardiac defibrillator in place: Ischemic cardiomyopathy H/O [place] in 2006. Pt reports had to have shock. S/P PCI. H/O ICD placed, no reported firings since placement. Currently not on any cardiac meds Ideally need to be on aspirin, metoprolol, statin, MARLA or ARB Obtain outside records ECHO: Mild concentric LVH, severely reduced LV systolic function, EF 25 to 30%, akinesis of the inferior/inferolateral diaz With otherwise, moderate global hypokinesis. Grade 1 diastolic dysfunction. Aortic wall sclerosis moderate, without significant aortic valvular stenosis Cardiology on board Continue metoprolol, Lipitor (6) Colon cancer: S/P chemo, radiation, colostomy Denies abdominal pain (7) Hypothyroidism: TSH: 5.5 Normal Free T4 continue levothyroxine DVT Px: Heparin SQ Code Status Full Code Disposition: To be determined Follows with Dr Romero in [place] for routine care Subjective Patient is seen and examined at bedside Hemoglobin dropped to 7.6 today Fecal occult negative No overt bleeding issues Plan to given 2 units PRBCs Saturating well on 2 L of nasal cannula Leg pain at surgical site is controlled Denies chest pain, SOB, nausea, dizziness, abdominal pain Review of Systems Review of Systems: All systems reviewed & are unremarkable except as noted in HPI & below Physical Exam Physical Exam: Physical Exam: Vitals signs as noted above General Appearance:Morbidly Obese, no apparent distress Head: normocephalic, Atraumatic Eyes: normal inspection, EOMI Neck: supple, Trachea midline Respiratory/Chest: Normal breath sounds, CTA Cardiovascular: S1, S2, No murmur Abdomen/GI:Soft, Non tender, Bowel sounds present Extremities/Musculoskelatal:normal inspection, RLE immobilizer +Lymphedema Neurologic/Psych:AAOX3, grossly no focal neurological deficits Skin: normal color, warm Results & Data Vital Signs (Past 12 Hours) Vital Signs Temp Pulse Pulse Pulse Resp BP BP 03/22/19 16:40 36.8 C 72 18 115/97 03/22/19 15:46 36.6 C 70 18 137/66 03/22/19 15:10 36.6 C 68 18 126/86 03/22/19 14:46 36.7 C 68 18 116/63 03/22/19 14:28 36.8 C 68 18 114/69 03/22/19 14:07 36.9 C 69 18 98/66 L 03/22/19 14:06 36.8 C 69 16 98/66 L 03/22/19 13:04 36.8 C 70 16 100/66 03/22/19 12:05 36.6 C 70 18 117/72 03/22/19 11:19 36.8 C 73 103/52 L 03/22/19 11:17 36.6 C 69 18 107/67 03/22/19 11:01 36.7 C 69 18 97/49 L 03/22/19 09:16 74 16 98/62 L 03/22/19 07:54 36.7 C 70 16 BP Pulse Ox 03/22/19 16:40 99 03/22/19 15:46 100 03/22/19 15:10 95 03/22/19 14:46 98 03/22/19 14:28 98 03/22/19 14:07 03/22/19 14:06 100 03/22/19 13:04 100 03/22/19 12:05 97 03/22/19 11:19 97 03/22/19 11:17 100 03/22/19 11:01 100 03/22/19 09:16 98 03/22/19 07:54 109/69 98 Laboratory Results Short CBC 03/22/19 Range/Units 08:19 WBC 6.91 (4.8-10.8) K/uL Hgb 7.6 L (12.0-16.0) g/dL Hct 23.3 L (37-47) % Plt Count 98 L (130-400) K/uL BMP 03/22/19 08:19 Sodium 140 Potassium 3.8 Chloride 106 Carbon Dioxide 28 BUN 16 Creatinine 0.54 L Glucose 103 H Calcium 7.6 L (1) Femur fracture, right Encounter type: initial encounter Femur location: shaft Fracture morphology: unspecified fracture morphology Fracture type: closed Qualified Code(s): S72.301A - Unspecified fracture of shaft of right femur, initial encounter for closed fracture
[2019-03-23] MEDS: LEVOTHYROXINE SODIUM 75 MCG TABLET PO SCH (06:13)
[2019-03-23 06:26] LABS: Hematocrit (blood only) 29.8 % (37-47); Hemoglobin 9.5 g/dL (12.0-16.0); Mean Corpuscular Hgb Conc 31.9 g/dL (32-36); Mean Corpuscular Volume 88.7 fL (80-100); Nucleated RBC # (auto) 0.13 K/uL (0-0); Nucleated RBC % (auto) 1.9 %; Platelet Count 124 K/uL (130-400); RDW Coefficient of Variation 16.4 % (11.5-14.5); RDW Standard Deviation 53.2 fL (36.4-46.3); Red Blood Count 3.36 M/uL (4.2-5.4); White Blood Count 7.06 K/uL (4.8-10.8)
[2019-03-23 06:36] LABS: Partial Thromboplastin Ratio 1.1; Partial Thromboplastin Time 28.8 Seconds (21.0-31.0)
[2019-03-23 07:01] LABS: Creatinine Clr Calc Pharmacy 114.9 ml/min; Est GFR (African American) 109.7; Est GFR (Non-African American) 94.6; Phosphorus 1.6 mg/dl (2.5-4.9)
[2019-03-23] MEDS: HEPARIN SODIUM (PORCINE) 7,500 UNITS in SYRINGE 0 ML SQ SCH ×3 (09:00→23:56)
[2019-03-23] MEDS: ATORVASTATIN 40 MG TAB PO SCH (09:35)
[2019-03-23] MEDS: METOPROLOL TARTRATE 25 MG TAB PO SCH ×2 (09:36→20:08)
[2019-03-23] MEDS: PANTOprazole 40 MG TAB PO SCH (09:36)
--- NOTE | 2019-03-23 10:43 | Orthopedic Progress Note ---
Date of Service March 23, 2019 Assessment & Plan (1) Femur fracture, right: Postop day 5 status post ORIF right distal femur fracture. Orthotics made a custom hinged knee brace to be locked in extension. Once brace is fitted, patient may be up to chair and start PT/OT as able. Continue nonweightbearing on the right lower extremity with brace on. DVT prophylaxis with heparin subcu every 8 hours. Pain management - IV Hydromorphone and Nucynta started. (Pt with intolerance to Percocet and [place]) DC planning - [facility] if authorization approved. Subjective Brace applied to RLE yesterday by Orthotics. CM present discussing dc plans. Having some left 2nd toe pain which has been going on awhile. No other complaints. Physical Exam Physical Exam: Brace on RLE. Prevena dressing functioning. Toes pink and warm. Left second toe may have a small amount of ecchymosis at the distal phalanx. Tender in the same area on palpation. Able to active flex and extend the toe without pain/difficulty. Results & Data Vital Signs (Past 12 Hours) Vital Signs Temp Pulse Resp BP BP Pulse Ox 03/23/19 07:53 36.8 C 72 16 125/98 90 03/22/19 23:22 36.3 C L 70 16 106/66 99 (1) Femur fracture, right Encounter type: initial encounter Femur location: shaft Fracture morphology: unspecified fracture morphology Fracture type: closed Qualified Code(s): S72.3 01A - Unspecified fracture of shaft of right femur, initial encounter for closed fracture
--- NOTE | 2019-03-23 19:40 | Hospitalist Progress Note ---
Date of Service March 23, 2019 Assessment & Plan (1) Femur fracture, right: Right displaced comminuted angulated distal femur fracture secondary to mechanical fall. ORIF 03/[address] Mustafa. POD # 5. Fisted for custom hinged knee brace to be locked in extension. Nonweightbearing RLE with brace on. (2) Coronary artery disease: History of ischemic heart disease. Serum troponin as high as 3.580. Cardiology consulted. Echo demonstrated akinesis of inferior and inferolateral diaz with overall LVEF 25-30%. Elevated troponin attributed to demand ischemia in setting of hypoxia and acute blood loss. No anginal symptoms. Continue aspirin, metoprolol. (3) Elevated troponin: As discussed above. (4) Chronic systolic (congestive) heart failure: Chronic left ventricular systolic heart failure attributed to ischemic cardiomyopathy. Echo as noted above showed LVEF 25-30%. BP's relatively low. Chronic lower extremity lymphedema. Was not taking any cardiac meds at time of admission. Currently on metoprolol tartrate- will convert to metoprolol succinate per guidelines. Start low dose lisinopril with hold parameters. Diurese as tolerated, starting with furosemide 40 mg BID. Follow labs, vital signs. (5) Hypothyroidism: TSH slightly elevated @ 5.5. Continue levothyroxine. Recheck TSH after recovery from current illness. (6) Morbid obesity: Wt 118 kg. BMI 50.8. Heart healthy diet. (7) Acute blood loss as cause of postoperative anemia: Acute blood loss anemia secondary to femur fracture. Hgb was 12.8 on admission and fell as low as 7.6. Stool heme neg 03/22. Has received 6 units pRBC's. Hgb today = 9.5. Follow. (8) DVT prophylaxis: SQ heparin. (9) Discharge planning issues: Will need inpt rehab. Case Management following. Primary Care follow-up with Dr. Deyanira Romero. Subjective Recheck for multiple problems. Patient seen in their room around 1909. Doing fairly well. Postop pain improved. Review of Systems: Constitutional- no fever. Cardiac- no chest pain. Pulmonary- occasional cough; SOB. GI- no nausea, vomiting, diarrhea, melena, hematochezia. - has Fuchs cath. Otherwise, as noted above. Physical Exam Constitutional: no acute distress Respiratory: no respiratory distress Auscultation: lungs clear to auscultation bilaterally Cardiovascular: Rate/Rhythm: regular rate and regular rhythm Heart Sounds: no gallop Vessels: no JVD Extremities: + edema (lymphedema lower extremities); no calf tenderness Gastrointestinal (Abdomen): Inspection/Auscultation: normal bowel sounds; + abdomen abnormal to inspection (ostomy LLQ with brown stool) Percussion/Palpation: abdomen soft; abdomen nontender Musculoskeletal: RLE immobilized Skin: no rashes, warm and dry Psychiatric: Orientation: alert and oriented x 3 Genitourinary: + abnormal external appearance (Fuchs cath) Results & Data Vital Signs (Past 12 Hours) Vital Signs Temp Pulse Resp BP Pulse Ox 03/23/19 15:44 36.5 C 76 18 125/73 95 03/23/19 07:53 36.8 C 72 16 125/98 90 Laboratory Results Laboratory Results - last 24 hr 03/23/19 03/23/19 03/23/19 05:58 05:58 05:58 WBC 7.06 RBC 3.36 L Hgb 9.5 L Hct 29.8 L MCV 88.7 MCH 28.3 MCHC 31.9 L RDW Std Deviation 53.2 H RDW Coeff of Johanne 16.4 H Plt Count 124 L MPV 10.0 Absolute Nucleated RBC 0.13 H Nucleated RBC % (auto) 1.9 APTT 28.8 PTT Ratio 1.1 Creatinine 0.49 L Est Cr Clr Drug Dosing 114.9 Est GFR ( Amer) 109.7 Est GFR (Non-Af Amer) 94.6 Phosphorus 1.6 L (1) Femur fracture, right Encounter type: initial encounter Femur location: shaft Fracture morphology: unspecified fracture morphology Fracture type: closed Qualified Code(s): S72.301A - Unspecified fracture of shaft of right femur, initial encounter for closed fracture
[2019-03-24] MEDS: LEVOTHYROXINE SODIUM 75 MCG TABLET PO SCH (05:09)
[2019-03-24] MEDS: TAPENTADOL HCL 50 MG TAB PO PRN ×4 (05:09→20:17)
[2019-03-24] MEDS: HEPARIN SODIUM (PORCINE) 7,500 UNITS in SYRINGE 0 ML SQ SCH ×3 (07:57→23:41)
[2019-03-24 08:08] LABS: Hematocrit (blood only) 30.5 % (37-47); Hemoglobin 9.9 g/dL (12.0-16.0)
[2019-03-24] MEDS: PANTOprazole 40 MG TAB PO SCH (08:08)
[2019-03-24] MEDS: METOPROLOL SUCC 25MG EXT REL TAB PO SCH ×2 (08:10→20:22)
[2019-03-24] MEDS: ATORVASTATIN 40 MG TAB PO SCH (08:11)
[2019-03-24] MEDS: LISINOPRIL 2.5 MG TAB PO SCH (08:12)
[2019-03-24] MEDS: ASPIRIN 81 MG ECTAB PO SCH (08:13)
[2019-03-24] MEDS: SPIRONOLACTONE 25 MG TAB PO SCH (08:13)
[2019-03-24] MEDS: FUROSEMIDE 40 MG TAB PO SCH ×2 (08:13→17:48)
[2019-03-24 08:19] LABS: Partial Thromboplastin Time 27.8 Seconds (21.0-31.0)
[2019-03-24 08:32] LABS: BUN Creatinine Ratio 18.8 (10-20); Calcium 8.1 mg/dl (8.5-10.1); Creatinine Clr Calc Pharmacy 85.3 ml/min; Est GFR (African American) 99.5; Est GFR (Non-African American) 85.8; Potassium 3.6 mmol/L (3.5-5.1)
--- NOTE | 2019-03-24 08:50 | Orthopedic Progress Note ---
Date of Service March 24, 2019 Assessment & Plan (1) Femur fracture, right: Postop day 6 status post ORIF right distal femur fracture. Orthotics made a custom hinged knee brace to be locked in extension. Once brace is fitted, patient may be up to chair and start PT/OT as able. Continue nonweightbearing on the right lower extremity with brace on. DVT prophylaxis with heparin subcu every 8 hours. Pain management - IV Hydromorphone and Nucynta started. (Pt with intolerance to Percocet and [place]) DC planning - [facility] if authorization approved. Ortho will sign off at this time. F/u with Dr. Mustafa about 12-14 days post operatively. She can call [phone] for an appointment. Subjective Brace applied to RLE yesterday by Orthotics. Having some bilateral arm pain states from where tape was. Also complaint of port being clogged. No other complaints. Physical Exam Physical Exam: Dressing is c/d/i. Brace is in place. Patient is currently lying in bed. Toes are mobile. Sensation and n/v status intact. Results & Data Vital Signs (Past 12 Hours) Vital Signs Temp Pulse Pulse Resp BP BP Pulse Ox 03/24/19 08:10 36.7 C 74 14 100/70 95 03/23/19 23:27 36.3 C L 74 14 122/72 98 (1) Femur fracture, right Encounter type: initial encounter Femur location: shaft Fracture morphology: unspecified fracture morphology Fracture type: closed Qualified Code(s): S72.301A - Unspecified fracture of shaft of right femur, initial encounter for closed fracture
[2019-03-24] MEDS ORDERED: ALTEPLASE, RECOMBINANT 1 MG/ML 2ML VIAL IV ONE ×2 (18:15→19:00)
--- NOTE | 2019-03-24 18:27 | Hospitalist Progress Note ---
Date of Service March 24, 2019 Assessment & Plan (1) Femur fracture, right: Right displaced comminuted angulated distal femur fracture secondary to mechanical fall. ORIF 03/[address] Mustafa. POD # 6. Fitted for custom hinged knee brace to be locked in extension. Nonweightbearing RLE with brace on. (2) Coronary artery disease: History of ischemic heart disease. Serum troponin as high as 3.580. Cardiology consulted. Echo demonstrated akinesis of inferior and inferolateral diaz with overall LVEF 25-30%. Elevated troponin attributed to demand ischemia in setting of hypoxia and acute blood loss. No anginal symptoms. Continue aspirin, metoprolol. (3) Elevated troponin: As discussed above. (4) Chronic systolic (congestive) heart failure: Chronic left ventricular systolic heart failure attributed to ischemic cardiomyopathy. Echo as noted above showed LVEF 25-30%. BP's relatively low. Chronic lower extremity lymphedema. Was not taking any cardiac meds at time of admission. Currently on metoprolol tartrate- will convert to metoprolol succinate per guidelines. Start low dose lisinopril with hold parameters. Diurese as tolerated, starting with furosemide 40 mg BID + spironolactone 12.5 mg daily. Follow labs, vital signs. (5) Hypothyroidism: TSH slightly elevated @ 5.5. Continue levothyroxine. Recheck TSH after recovery from current illness. (6) Morbid obesity: Wt 118 kg. BMI 50.8. Heart healthy diet. (7) Acute blood loss as cause of postoperative anemia: Acute blood loss anemia secondary to femur fracture. Hgb was 12.8 on admission and fell as low as 7.6. Stool heme neg 03/22. Has received 6 units pRBC's. Hgb today = 9.9. Follow. (8) DVT prophylaxis: SQ heparin. (9) Discharge planning issues: Will need inpt rehab. Case Management following. Primary Care follow-up with Dr. Deyanira Romero. Subjective Recheck for multiple problems. Patient seen in their room around 0940. Doing fairly well. Postop pain improved. No new problems. Review of Systems: Constitutional- no fever. Cardiac- no chest pain. Pulmonary- occasional cough; SOB. GI- no nausea, vomiting, diarrhea, melena, hematochezia. - has Fuchs cath. Otherwise, as noted above. Physical Exam Constitutional: no acute distress Respiratory: no respiratory distress Auscultation: lungs clear to auscultation bilaterally Cardiovascular: Rate/Rhythm: regular rate and regular rhythm Heart Sounds: no gallop Vessels: no JVD Extremities: + edema (lymphedema lower extremities); no calf tenderness Gastrointestinal (Abdomen): Inspection/Auscultation: normal bowel sounds; + abdomen abnormal to inspection (ostomy LLQ with brown stool) Percussion/Palpation: abdomen soft; abdomen nontender Musculoskeletal: Extremities: + lower extremity abnormal to inspection (RLE immobilized) Skin: no rashes, warm and dry Psychiatric: Orientation: alert and oriented x 3 Genitourinary: + abnormal external appearance (Fuchs cath) Results & Data Vital Signs (Past 12 Hours) Vital Signs Temp Pulse Resp BP BP BP Pulse Ox 03/24/19 16:10 03/24/19 15:35 36.7 C 76 16 122/55 L 94 03/24/19 12:09 141/101 H 118/70 03/24/19 12:00 36.7 C 72 16 80/40 L 93 03/24/19 08:10 36.7 C 74 14 100/70 95 Pulse Ox 03/24/19 16:10 95 03/24/19 15:35 03/24/19 12:09 03/24/19 12:00 03/24/19 08:10 Laboratory Results Short CBC 03/24/19 Range/Units 07:46 Hgb 9.9 L (12.0-16.0) g/dL Hct 30.5 L (37-47) % BMP 03/24/19 07:46 Sodium 139 Potassium 3.6 Chloride 105 Carbon Dioxide 30 BUN 12 Creatinine 0.66 Glucose 105 H Calcium 8.1 L (1) Femur fracture, right Encounter type: initial encounter Femur location: shaft Fracture morphology: unspecified fracture morphology Fracture type: closed Qualified Code(s): S72.301A - Unspecified fracture of shaft of right femur, initial encounter for closed fracture
[2019-03-24] MEDS ORDERED: POTASSIUM CHLORIDE 20 MEQ TABCR PO ONE (18:45)
[2019-03-25] MEDS: TAPENTADOL HCL 50 MG TAB PO PRN ×3 (00:15→19:33)
[2019-03-25] MEDS: LEVOTHYROXINE SODIUM 75 MCG TABLET PO SCH (04:39)
[2019-03-25] MEDS: LISINOPRIL 2.5 MG TAB PO SCH (07:45)
[2019-03-25] MEDS: PANTOprazole 40 MG TAB PO SCH (07:45)
[2019-03-25] MEDS: FUROSEMIDE 40 MG TAB PO SCH ×2 (07:48→16:22)
[2019-03-25] MEDS: ASPIRIN 81 MG ECTAB PO SCH (07:48)
[2019-03-25] MEDS: ATORVASTATIN 40 MG TAB PO SCH (07:49)
[2019-03-25] MEDS: METOPROLOL SUCC 25MG EXT REL TAB PO SCH ×2 (07:49→21:22)
[2019-03-25] MEDS: SPIRONOLACTONE 25 MG TAB PO SCH (07:49)
[2019-03-25] MEDS: HEPARIN SODIUM (PORCINE) 7,500 UNITS in SYRINGE 0 ML SQ SCH ×2 (07:50→16:21)
[2019-03-25 07:55] LABS: Hematocrit (blood only) 32.4 % (37-47); Hemoglobin 10.4 g/dL (12.0-16.0)
[2019-03-25 08:28] LABS: BUN Creatinine Ratio 19.1 (10-20); Calcium 8.4 mg/dl (8.5-10.1); Creatinine Clr Calc Pharmacy 90.8 ml/min; Est GFR (African American) 101.5; Est GFR (Non-African American) 87.6; Potassium 3.8 mmol/L (3.5-5.1)
--- NOTE | 2019-03-25 21:29 | Hospitalist Progress Note ---
Date of Service March 25, 2019 Assessment & Plan (1) Femur fracture, right: Right displaced comminuted angulated distal femur fracture secondary to mechanical fall. ORIF 03/[address] Mustafa. POD # 7. Fitted for custom hinged knee brace to be locked in extension. Nonweightbearing RLE with brace on. (2) Coronary artery disease: History of ischemic heart disease. Serum troponin as high as 3.580. Cardiology consulted. Echo demonstrated akinesis of inferior and inferolateral diaz with overall LVEF 25-30%. Elevated troponin attributed to demand ischemia in setting of hypoxia and acute blood loss. No anginal symptoms. Continue aspirin, metoprolol. (3) Elevated troponin: As discussed above. (4) Chronic systolic (congestive) heart failure: Chronic left ventricular systolic heart failure attributed to ischemic cardiomyopathy. Echo as noted above showed LVEF 25-30%. BP's relatively low. Chronic lower extremity lymphedema. Was not taking any cardiac meds at time of admission. Currently on metoprolol tartrate- will convert to metoprolol succinate per guidelines. Start low dose lisinopril with hold parameters. Diurese as tolerated with furosemide and spironolactone. Follow labs, vital signs. (5) Hypothyroidism: TSH slightly elevated @ 5.5. Continue levothyroxine. Recheck TSH after recovery from current illness. (6) Morbid obesity: Wt 118 kg. BMI 50.8. Heart healthy diet. (7) Acute blood loss as cause of postoperative anemia: Acute blood loss anemia secondary to femur fracture. Hgb was 12.8 on admission and fell as low as 7.6. Stool heme neg 03/22. Has received 6 units pRBC's. Hgb today = 10.4. Follow. (8) DVT prophylaxis: SQ heparin. (9) Discharge planning issues: Will need inpt rehab. Case Management following. Primary Care follow-up with Dr. Deyanira Romero. Subjective Recheck for multiple problems. Patient seen in their room around 1630. Doing fairly well. Problems last night flushing left IJ introducer- better after TPA flush. Not experiencing much pain. Review of Systems: Constitutional- no fever. Cardiac- no chest pain. Pulmonary- occasional cough; no SOB. GI- no nausea, vomiting, diarrhea, melena, hematochezia. - has Fuchs cath. Otherwise, as noted above. Physical Exam Constitutional: no acute distress Respiratory: no respiratory distress Auscultation: lungs clear to auscultation bilaterally Cardiovascular: Rate/Rhythm: regular rate and regular rhythm Heart Sounds: no gallop Vessels: no JVD Extremities: + edema (lymphedema lower extremities); no calf tenderness Gastrointestinal (Abdomen): Inspection/Auscultation: normal bowel sounds; + abdomen abnormal to inspection (ostomy LLQ with brown stool) Percussion/Palpation: abdomen soft; abdomen nontender Musculoskeletal: Extremities: + lower extremity abnormal to inspection (RLE immobilized; SCD's applied) Skin: no rashes, warm and dry Psychiatric: Orientation: alert and oriented x 3 Genitourinary: + abnormal external appearance (Fuchs cath) Results & Data Vital Signs (Past 12 Hours) Vital Signs Temp Pulse Resp BP Pulse Ox 03/25/19 15:32 36.8 C 72 20 122/42 L 93 Laboratory Results Short CBC 03/25/19 Range/Units 07:28 Hgb 10.4 L (12.0-16.0) g/dL Hct 32.4 L (37-47) % BMP 03/25/19 07:28 Sodium 139 Potassium 3.8 Chloride 101 Carbon Dioxide 33 H BUN 12 Creatinine 0.62 Glucose 99 Calcium 8.4 L (1) Femur fracture, right Encounter type: initial encounter Femur location: shaft Fracture morphology: unspecified fracture morphology Fracture type: closed Qualified Code(s): S72.301A - Unspecified fracture of shaft of right femur, initial encounter for closed fracture
[2019-03-26] MEDS: HEPARIN SODIUM (PORCINE) 7,500 UNITS in SYRINGE 0 ML SQ SCH ×4 (00:11→23:20)
[2019-03-26] MEDS: TAPENTADOL HCL 50 MG TAB PO PRN ×4 (02:54→21:19)
[2019-03-26] MEDS: LEVOTHYROXINE SODIUM 75 MCG TABLET PO SCH (05:56)
[2019-03-26] MEDS: ATORVASTATIN 40 MG TAB PO SCH (08:10)
[2019-03-26] MEDS: METOPROLOL SUCC 25MG EXT REL TAB PO SCH ×2 (08:11→22:46)
[2019-03-26] MEDS: LISINOPRIL 2.5 MG TAB PO SCH (08:11)
[2019-03-26] MEDS: FUROSEMIDE 40 MG TAB PO SCH (08:12)
[2019-03-26] MEDS: PANTOprazole 40 MG TAB PO SCH (08:13)
[2019-03-26] MEDS: ASPIRIN 81 MG ECTAB PO SCH (08:13)
[2019-03-26] MEDS: SPIRONOLACTONE 25 MG TAB PO SCH (08:13)
--- NOTE | 2019-03-26 20:24 | Hospitalist Progress Note ---
Date of Service March 26, 2019 Assessment & Plan (1) Femur fracture, right: Right displaced comminuted angulated distal femur fracture secondary to mechanical fall. ORIF 03/[address] Mustafa. POD # 8. Fitted for custom hinged knee brace to be locked in extension. Nonweightbearing RLE with brace on. Continue PT / OT. (2) Coronary artery disease: History of ischemic heart disease. Serum troponin as high as 3.580. Cardiology consulted. Echo demonstrated akinesis of inferior and inferolateral diaz with overall LVEF 25-30%. Elevated troponin attributed to demand ischemia in setting of hypoxia and acute blood loss. No anginal symptoms. Continue aspirin, metoprolol. (3) Elevated troponin: As discussed above. (4) Chronic systolic (congestive) heart failure: Chronic left ventricular systolic heart failure attributed to ischemic cardiomyopathy. Echo as noted above showed LVEF 25-30%. BP's relatively low. Chronic lower extremity lymphedema. Was not taking any cardiac meds at time of admission. Currently on metoprolol tartrate- will convert to metoprolol succinate per guidelines. Start low dose lisinopril with hold parameters. Diurese as tolerated with furosemide and spironolactone. Follow labs, vital signs. (5) Hypothyroidism: TSH slightly elevated @ 5.5. Continue levothyroxine. Recheck TSH after recovery from current illness. (6) Morbid obesity: Wt 118 kg. BMI 50.8. Heart healthy diet. (7) Acute blood loss as cause of postoperative anemia: Acute blood loss anemia secondary to femur fracture. Hgb was 12.8 on admission and fell as low as 7.6. Stool heme neg 03/22. Has received 6 units pRBC's. Hgb yesterday = 10.4. Follow. (8) DVT prophylaxis: SQ heparin. (9) Discharge planning issues: Will need inpt rehab. Case Management following. Primary Care follow-up with Dr. Deyanira Romero. Subjective Recheck for multiple problems. Patient seen in their room around 1130. No new problems or concerns. Comfortable most of the time. Review of Systems: Constitutional- no fever. Cardiac- no chest pain. Pulmonary- occasional cough; no SOB. GI- no nausea, vomiting; normal ostomy output - has Fuchs cath. Otherwise, as noted above. Physical Exam Constitutional: no acute distress Respiratory: no respiratory distress Auscultation: lungs clear to auscultation bilaterally Cardiovascular: Rate/Rhythm: regular rate and regular rhythm Heart Sounds: no gallop Vessels: no JVD Extremities: + edema (lymphedema lower extremities); no calf tenderness Gastrointestinal (Abdomen): Inspection/Auscultation: normal bowel sounds; + abdomen abnormal to inspection (ostomy LLQ with soft brown stool) Percussion/Palpation: abdomen soft; abdomen nontender Musculoskeletal: Extremities: + lower extremity abnormal to inspection (RLE immobilized; SCD's applied) Skin: no rashes, warm and dry Psychiatric: Orientation: alert and oriented x 3 Genitourinary: + abnormal external appearance (Fuchs cath) Results & Data Vital Signs (Past 12 Hours) Vital Signs Temp Pulse Resp BP Pulse Ox 03/26/19 15:30 36.8 C 70 24 118/72 94 (1) Femur fracture, right Encounter type: initial encounter Femur location: shaft Fracture morphology: unspecified fracture morphology Fracture type: closed Qualified Code(s): S72.301A - Unspecified fracture of shaft of right femur, initial encounter for closed fracture
[2019-03-27] MEDS: LEVOTHYROXINE SODIUM 75 MCG TABLET PO SCH (05:34)
[2019-03-27 09:06] LABS: BUN Creatinine Ratio 20.2 (10-20); Calcium 8.9 mg/dl (8.5-10.1); Est GFR (Non-African American) 85.4; Potassium 3.4 mmol/L (3.5-5.1)
[2019-03-27] MEDS: HEPARIN SODIUM (PORCINE) 7,500 UNITS in SYRINGE 0 ML SQ SCH ×2 (09:48→16:57)
[2019-03-27] MEDS: SPIRONOLACTONE 25 MG TAB PO SCH (09:49)
[2019-03-27] MEDS: ASPIRIN 81 MG ECTAB PO SCH (09:49)
[2019-03-27] MEDS: ATORVASTATIN 40 MG TAB PO SCH (09:49)
[2019-03-27] MEDS: METOPROLOL SUCC 25MG EXT REL TAB PO SCH ×2 (09:49→20:24)
[2019-03-27] MEDS: FUROSEMIDE 40 MG TAB PO SCH (09:50)
[2019-03-27] MEDS: LISINOPRIL 2.5 MG TAB PO SCH (09:50)
[2019-03-27] MEDS: PANTOprazole 40 MG TAB PO SCH (09:50)
[2019-03-27 09:51] LABS: Hemoglobin 10.8 g/dL (12.0-16.0); Mean Corpuscular Volume 87.8 fL (80-100); Mean Platelet Volume 9.1 fL (7.4-10.4); Nucleated RBC # (auto) 0.13 K/uL (0-0); Nucleated RBC % (auto) 1.4 %; Platelet Count 191 K/uL (130-400); RDW Standard Deviation 51.6 fL (36.4-46.3); Red Blood Count 3.76 M/uL (4.2-5.4); White Blood Count 9.03 K/uL (4.8-10.8)
[2019-03-27 09:55] LABS: Mean Corpuscular Hgb Conc 32.7 g/dL (32-36)
--- NOTE | 2019-03-27 17:31 | Hospitalist Progress Note ---
Date of Service March 27, 2019 Assessment & Plan (1) Femur fracture, right: Right displaced comminuted angulated distal femur fracture secondary to mechanical fall. ORIF 03/[address] Mustafa. POD # 9. Fitted for custom hinged knee brace to be locked in extension. Nonweightbearing RLE with brace on. Continue PT / OT. (2) Coronary artery disease: History of ischemic heart disease. Serum troponin as high as 3.580. Cardiology consulted. Echo demonstrated akinesis of inferior and inferolateral diaz with overall LVEF 25-30%. Elevated troponin attributed to demand ischemia in setting of hypoxia and acute blood loss. No anginal symptoms. Continue aspirin, metoprolol. (3) Elevated troponin: As discussed above. (4) Chronic systolic (congestive) heart failure: Chronic left ventricular systolic heart failure attributed to ischemic cardiomyopathy. Echo as noted above showed LVEF 25-30%. BP's relatively low. Chronic lower extremity lymphedema. Was not taking any cardiac meds at time of admission. Currently on metoprolol tartrate- will convert to metoprolol succinate per guidelines. Start low dose lisinopril with hold parameters. Diurese as tolerated with furosemide and spironolactone. K 3.4. Add KCl 20 mEq daily. Follow labs, vital signs. Recheck BMP 03/29. (5) Hypothyroidism: TSH slightly elevated @ 5.5. Continue levothyroxine. Recheck TSH after recovery from current illness. (6) Morbid obesity: Wt 118 kg. BMI 50.8. Heart healthy diet. (7) Acute blood loss as cause of postoperative anemia: Acute blood loss anemia secondary to femur fracture. Hgb was 12.8 on admission and fell as low as 7.6. Stool heme neg 03/22. Has received 6 units pRBC's. Hgb today = 10.8. Follow. (8) Urinary catheter in place: Remove Fuchs when able to void comfortably without it. (9) DVT prophylaxis: SQ heparin. (10) Discharge planning issues: Will need inpt rehab or skilled care. Case Management following. Primary Care follow-up with Dr. Deyanira Romero. Subjective Recheck for multiple problems. Patient seen in their room around 1135. Out of bed to chair this morning with lift and assistance. Wearing brace on RLE; not too much pain. Frustrated about her situation and anticipated length of recovery. Review of Systems: Constitutional- no fever. Cardiac- no chest pain. Pulmonary- occasional cough; no SOB. GI- no nausea, vomiting; normal ostomy output - has Fuchs cath. Otherwise, as noted above. Physical Exam Constitutional: no acute distress sitting in chair at bedside Respiratory: no respiratory distress Auscultation: lungs clear to auscultation bilaterally Cardiovascular: Rate/Rhythm: regular rate and regular rhythm Heart Sounds: no gallop Vessels: no JVD Extremities: + edema (lymphedema lower ex tremities); no calf tenderness Gastrointestinal (Abdomen): Inspection/Auscultation: normal bowel sounds; + abdomen abnormal to inspection (ostomy LLQ with soft brown stool) Percussion/Palpation: abdomen soft; abdomen nontender Musculoskeletal: Extremities: + lower extremity abnormal to inspection (RLE immobilized) Skin: no rashes, warm and dry Psychiatric: Orientation: alert and oriented x 3 Genitourinary: + abnormal external appearance (Fuchs cath) Results & Data Vital Signs (Past 12 Hours) Vital Signs Temp Pulse Pulse Resp BP BP Pulse Ox 03/27/19 16:03 97/64 L 03/27/19 16:01 36.7 C 79 18 76/47 L 94 03/27/19 15:21 36.6 C 79 16 132/103 H 93 03/27/19 15:02 36.6 C 80 18 102/69 95 03/27/19 14:26 87 120/67 03/27/19 14:18 85 115/70 03/27/19 07:05 36.5 C 72 18 111/45 L 90 Laboratory Results Short CBC 03/27/19 03/27/19 Range/Units 08:28 09:35 WBC Cancelled 9.03 Hgb Cancelled 10.8 L Hct Cancelled 33.0 L Plt Count Cancelled 191 BMP 03/27/19 08:28 Sodium 136 Potassium 3.4 L Chloride 98 Carbon Dioxide 30 BUN 14 Creatinine 0.67 Glucose 117 H Calcium 8.9 (1) Femur fracture, right Encounter type: initial encounter Femur location: shaft Fracture morphology: unspecified fracture morphology Fracture type: closed Qualified Code(s): S72.301A - Unspecified fracture of shaft of right femur, initial encounter for closed fracture
[2019-03-27] MEDS ORDERED: POTASSIUM CHLORIDE 20 MEQ TABCR PO ONE (19:00)
[2019-03-28] MEDS: HEPARIN SODIUM (PORCINE) 7,500 UNITS in SYRINGE 0 ML SQ SCH ×3 (00:14→17:14)
[2019-03-28] MEDS: LEVOTHYROXINE SODIUM 75 MCG TABLET PO SCH (05:29)
[2019-03-28] MEDS: TAPENTADOL HCL 50 MG TAB PO PRN ×3 (07:45→20:24)
[2019-03-28] MEDS: LISINOPRIL 2.5 MG TAB PO SCH (09:43)
[2019-03-28] MEDS: METOPROLOL SUCC 25MG EXT REL TAB PO SCH ×2 (09:43→20:29)
[2019-03-28] MEDS: FUROSEMIDE 40 MG TAB PO SCH (09:43)
[2019-03-28] MEDS: PANTOprazole 40 MG TAB PO SCH (09:44)
[2019-03-28] MEDS: ATORVASTATIN 40 MG TAB PO SCH (09:44)
[2019-03-28] MEDS: SPIRONOLACTONE 25 MG TAB PO SCH (09:44)
[2019-03-28] MEDS: ASPIRIN 81 MG ECTAB PO SCH (09:44)
--- NOTE | 2019-03-28 14:15 | Hospitalist Progress Note ---
Date of Service March 28, 2019 Assessment & Plan (1) Femur fracture, right: Right displaced comminuted angulated distal femur fracture secondary to mechanical fall. ORIF 03/[address] Mustafa. POD # 10. -Fitted for custom hinged knee brace to be locked in extension. -Nonweightbearing RLE with brace on. -Continue PT / OT- OOB to chair -Pain medication- IV Dilaudid 0.5 mg every 4 hours as needed, Nucynta as needed (as intolerant to percocet and norco). (2) Coronary artery disease: History of ischemic heart disease. Serum troponin as high as 3.580. Echo demonstrated akinesis of inferior and inferolateral diaz with overall LVEF 25-30%. -Elevated troponin attributed to demand ischemia in setting of hypoxia and acute blood loss. -Continue aspirin, Toprol XL (Changed per guidelines from lopressor), started on low dose of lisinopril 2.5 mg during this admission. Continue with atorvastatin. -S/P Cardiology evaluation (3) Elevated troponin: As discussed above. (4) Chronic systolic (congestive) heart failure: Chronic left ventricular systolic heart failure attributed to ischemic cardiomyopathy. Echo as noted above showed LVEF 25-30%. Chronic lower extremity lymphedema. Was not taking any cardiac meds at time of admission. -Currently on metoprolol tartrate- converted to metoprolol succinate per guidelines. -Started low dose lisinopril with hold parameters. -Diurese as tolerated with furosemide 40 mg daily and spironolactone 12.5 mg daily. -On KCl 20 mEq daily. -F/up BMP ordered on 03/29/19 (5) Hypothyroidism: TSH slightly elevated @ 5.5. -Continue levothyroxine. -Recheck TSH after recovery from current illness. (6) Morbid obesity: Wt 118 kg. BMI 50.8. -Heart healthy diet. (7) Acute blood loss as cause of postoperative anemia: Acute blood loss anemia secondary to femur fracture. Hgb was 12.8 on admission and fell as low as 7.6. Stool heme neg 03/22. -Has received 6 units pRBC's. -Monitor H & H (8) Urinary catheter in place: -Remove Fuchs when able to void comfortably without it. (9) DVT prophylaxis: -SQ heparin. (10) Discharge planning issues: PT/OT- OOB to chair Will need inpt rehab or skilled care. Case Management following. Primary Care follow-up with Dr. Deyanira Romero. Follow up with ortho Dr Mustafa in 12-14 days post operatively. all [phone] for appt. Cleared from medical point of view. Awaiting placement Subjective Complains of fluid restriction due to colostomy + and says she has always had legs swollen- lymphedema - No worsening No new complaints Physical Exam Physical Exam: GENERAL- AAOX3, No acute distress; MORBIDLY OBESE + LUNGS- Air entry bilaterally decreased, no wheezing, rhonchi HEART- Regular rate and rhythm. No murmurs ABDOMEN- COLOSTOMY + Soft, non tender, non distended, Bowel sounds heard. EXTREMITIES- s/p right femur fracture - brace; Bilateral Lymphedema - Urinary catheter + Results & Data Vital Signs (Past 12 Hours) Vital Signs Temp Pulse Resp BP Pulse Ox 03/28/19 07:49 36.9 C 73 18 136/79 95 (1) Femur fracture, right Encounter type: initial encounter Femur location: shaft Fracture morphology: unspecified fracture morphology Fracture type: closed Qualified Code(s): S72.301A - Unspecified fracture of shaft of right femur, initial encounter for closed fracture
[2019-03-29] MEDS: TAPENTADOL HCL 50 MG TAB PO PRN ×4 (00:01→16:49)
[2019-03-29] MEDS: HEPARIN SODIUM (PORCINE) 7,500 UNITS in SYRINGE 0 ML SQ SCH ×4 (00:02→23:43)
[2019-03-29] MEDS: LEVOTHYROXINE SODIUM 75 MCG TABLET PO SCH (04:06)
[2019-03-29 07:42] LABS: Hematocrit (blood only) 31.9 % (37-47); Hemoglobin 10.6 g/dL (12.0-16.0)
[2019-03-29] MEDS: ATORVASTATIN 40 MG TAB PO SCH (08:01)
[2019-03-29] MEDS: SPIRONOLACTONE 25 MG TAB PO SCH (08:04)
[2019-03-29] MEDS: FUROSEMIDE 40 MG TAB PO SCH (08:04)
[2019-03-29] MEDS: PANTOprazole 40 MG TAB PO SCH (08:04)
[2019-03-29] MEDS: ASPIRIN 81 MG ECTAB PO SCH (08:04)
[2019-03-29] MEDS: METOPROLOL SUCC 25MG EXT REL TAB PO SCH ×2 (08:06→21:53)
[2019-03-29] MEDS: LISINOPRIL 2.5 MG TAB PO SCH (08:09)
[2019-03-29 08:16] LABS: BUN Creatinine Ratio 23.2 (10-20); Calcium 8.8 mg/dl (8.5-10.1); Creatinine Clr Calc Pharmacy 77.1 ml/min; Est GFR (African American) 92.7; Potassium 3.7 mmol/L (3.5-5.1)
--- NOTE | 2019-03-29 15:43 | Hospitalist Progress Note ---
Date of Service March 29, 2019 Assessment & Plan (1) Femur fracture, right: Right displaced comminuted angulated distal femur fracture secondary to mechanical fall. ORIF 03/[address] Mustafa. POD # 11. -Fitted for custom hinged knee brace to be locked in extension. -Nonweightbearing RLE with brace on. -Continue PT / OT- OOB to chair -Pain medication- IV Dilaudid 0.5 mg every 4 hours as needed, Nucynta as needed (as intolerant to percocet and norco). (2) Coronary artery disease: History of ischemic heart disease. Serum troponin as high as 3.580. Echo demonstrated akinesis of inferior and inferolateral diaz with overall LVEF 25-30%. -Elevated troponin attributed to demand ischemia in setting of hypoxia and acute blood loss. -Continue aspirin, Toprol XL (Changed per guidelines from lopressor), started on low dose of lisinopril 2.5 mg during this admission. Continue with atorvastatin. -S/P Cardiology evaluation (3) Elevated troponin: As discussed above. (4) Chronic systolic (congestive) heart failure: Chronic left ventricular systolic heart failure attributed to ischemic cardiomyopathy. Echo as noted above showed LVEF 25-30%. Chronic lower extremity lymphedema. Was not taking any cardiac meds at time of admission. -Currently on metoprolol tartrate- converted to metoprolol succinate per guidelines. -Started low dose lisinopril with hold parameters. -Diurese as tolerated with furosemide 40 mg daily and spironolactone 12.5 mg daily. -On KCl 20 mEq daily. -F/up BMP ordered on 03/29/19 (5) Hypothyroidism: TSH slightly elevated @ 5.5. -Continue levothyroxine. -Recheck TSH after recovery from current illness. (6) Morbid obesity: Wt 118 kg. BMI 50.8. -Heart healthy diet. (7) Acute blood loss as cause of postoperative anemia: Acute blood loss anemia secondary to femur fracture. Hgb was 12.8 on admission and fell as low as 7.6. Stool heme neg 03/22. -Has received 6 units pRBC's. -Monitor H & H (8) Urinary catheter in place: -Remove Fuchs when able to void comfortably without it. (9) DVT prophylaxis: -SQ heparin. (10) Discharge planning issues: PT/OT- OOB to chair Will need inpt rehab or skilled care. Case Management following. Primary Care follow-up with Dr. Deyanira Romero. Follow up with ortho Dr Mustafa in 12-14 days post operatively. all [phone] for appt. Cleared from medical point of view. Awaiting placement Subjective Complains of fluid restriction due to colostomy + and says she has always had legs swollen- lymphedema - No worsening No new complaints Physical Exam Physical Exam: GENERAL- AAOX3, No acute distress; MORBIDLY OBESE + LUNGS- Air entry bilaterally decreased, no wheezing, rhonchi HEART- Regular rate and rhythm. No murmurs ABDOMEN- COLOSTOMY + Soft, non tender, non distended, Bowel sounds heard. EXTREMITIES- s/p right femur fracture - brace; Bilateral Lymphedema - Urinary catheter + Results & Data Vital Signs (Past 12 Hours) Vital Signs Temp Pulse Resp BP Pulse Ox 03/29/19 15:39 36.6 C 67 17 117/95 91 03/29/19 08:31 36.5 C 71 18 139/79 97 (1) Femur fracture, right Encounter type: initial encounter Femur location: shaft Fracture morphology: unspecified fracture morphology Fracture type: closed Qualified Code(s): S72.301A - Unspecified fracture of shaft of right femur, initial encounter for closed fracture
[2019-03-30] MEDS: LEVOTHYROXINE SODIUM 75 MCG TABLET PO SCH (05:48)
[2019-03-30] MEDS: HEPARIN SODIUM (PORCINE) 7,500 UNITS in SYRINGE 0 ML SQ SCH ×2 (08:56→16:42)
[2019-03-30] MEDS: METOPROLOL SUCC 25MG EXT REL TAB PO SCH ×2 (08:58→10:36)
[2019-03-30] MEDS: SPIRONOLACTONE 25 MG TAB PO SCH (08:59)
[2019-03-30] MEDS: ATORVASTATIN 40 MG TAB PO SCH (08:59)
[2019-03-30] MEDS: FUROSEMIDE 40 MG TAB PO SCH (08:59)
[2019-03-30] MEDS: LISINOPRIL 2.5 MG TAB PO SCH (09:00)
[2019-03-30] MEDS: PANTOprazole 40 MG TAB PO SCH (09:00)
[2019-03-30] MEDS: ASPIRIN 81 MG ECTAB PO SCH (09:01)
[2019-03-30] MEDS: TAPENTADOL HCL 50 MG TAB PO PRN ×2 (09:10→16:38)
--- NOTE | 2019-03-30 13:59 | Hospitalist Progress Note ---
Date of Service March 30, 2019 Assessment & Plan (1) Femur fracture, right: Right displaced comminuted angulated distal femur fracture secondary to mechanical fall. ORIF 03/[address] Mustafa. POD # 12. -Fitted for custom hinged knee brace to be locked in extension. -Nonweightbearing RLE with brace on. -Continue PT / OT- OOB to chair- continue on discharge -Pain medication- IV Dilaudid 0.5 mg every 4 hours as needed, Nucynta as needed (as intolerant to percocet and norco). (2) Coronary artery disease: History of ischemic heart disease. Serum troponin as high as 3.580. Echo demonstrated akinesis of inferior and inferolateral diaz with overall LVEF 25-30%. -Elevated troponin attributed to demand ischemia in setting of hypoxia and acute blood loss. -Started on ASA, Statin, Low dose lisinopril 2.5 mg, Toprol XL during this adm ission as was not on any cardiac meds and EF 25-30%. Refusing ASA due to vaginal bleeding, statin due to muscle aches in past. BP in 90-100s asymptomatic. Meds with holding parameters -S/P Cardiology evaluation (3) Elevated troponin: As discussed above. (4) Vaginal bleeding: Per RN, noted to have pinkish bloody discharge from vagina today. Was started on aspirin during this admission- patient adamant about stopping it. Will stop aspirin. Says she has had this in past for which she saw her doctor who did biopsy- inflammation and no malignancy. -Recommend to follow up again with OPTICAL FABRICATOR. Explained the importance of further evaluation for postmenopausal vaginal bleeding. Understands and will do s o (5) Encounter for wound care: S/P Femur fracture Per Wound care- 2 sores buttock area- one concerning for cancer and should be evaluated by dermatology outpatient. Discussed with patient and understands importance of follow up with dermatology -Wound care to be continued (6) Chronic systolic (congestive) heart failure: Chronic left ventricular systolic heart failure attributed to ischemic cardiomyopathy. Echo as noted above showed LVEF 25-30%. Chronic lower extremity lymphedema. Was not taking any cardiac meds at time of admission. -Started on ASA, Statin, Low dose lisinopril 2.5 mg, Toprol XL during this admission as was not on any cardiac meds and EF 25-30%. Refusing ASA due to vaginal bleeding, statin due to muscle aches in past. BP in 90-100s asymptomatic. Meds with holding parameters -Diurese as tolerated with furosemide 40 mg daily and spironolactone 12.5 mg daily. -Started on KCl 20 mEq daily. (7) Hypothyroidism: TSH slightly elevated @ 5.5. -Continue levothyroxine. -Recheck TSH after recovery from current illness. (8) Morbid obesity: Wt 118 kg. BMI 50.8. -Heart healthy diet. (9) Acute blood loss as cause of postoperative anemia: Acute blood loss anemia secondary to femur fracture. Hgb was 12.8 on admission and fell as low as 7.6. Stool heme neg 03/22. -Has received 6 units PRBCs -Monitor H & H outpatient - stable (10) Urinary catheter in place: -Patient is hesitant to get foleys removed. -Continue with foleys catheter. Consider removing it at rehab (11) DVT prophylaxis: -SQ heparin. (12) Discharge planning issues: PT/OT recommends rehab Case Management following. Primary Care follow-up with Dr. Deyanira Romero. Follow up with ortho Dr Mustafa in 12-14 days post operatively. all [phone] for appt. [facility] guid[facility] has a bed today. Ok to discharge today Subjective Patient has no complaints. Per RN, patient had some pinkish bloody vaginal discharge. Per patient she gets it when she takes aspirin. Per manufacturing engineering professor, wounds in buttocks. Physical Exam 2 Physical Exam: GENERAL- AAOX3, No acute distress; MORBIDLY OBESE + LUNGS- Air entry bilaterally decreased, no wheezing, rhonchi HEART- Regular rate and rhythm. No murmurs ABDOMEN- COLOSTOMY + Soft, non tender, non distended, Bowel sounds heard. EXTREMITIES- s/p right femur fracture - brace; Bilateral Lymphedema - Urinary catheter + SKIN- Wounds in buttocks (noted by wound RN). Unable to access- morbid obesity and femur fracture repair. Results & Data Vital Signs (Past 12 Hours) Vital Signs Temp Pulse Resp BP Pulse Ox 03/30/19 13:26 105/52 L 03/30/19 09:17 88/49 L 03/30/19 09:05 36.7 C 68 20 99/37 L 92 (1) Femur fracture, right Encounter type: initial encounter Femur location: shaft Fracture morphology: unspecified fracture morphology Fracture type: closed Qualified Code(s): S72.301A - Unspecified fracture of shaft of right femur, initial encounter for closed fracture
--- NOTE | 2019-03-30 14:04 | Discharge Summary ---
Date of Service March 30, 2019 Admission HPI Per Admitting Provider Pt is 78 y/o F with PMH HTN, CAD s/p stent, s/p ICD, colon CA s/p chemo & radiation & colostomy, hypothyroidism, lymphedema BLE presented to ER with complaint of fall and right leg pain. Patient states slipped while in shower today causing her to fall and then had right knee pain. Patient was unable to get herself up out of the bathtub. Patient denies hitting her head. Denies any loss of consciousness. Denies any chest pain, shortness of breath, dizziness. Denies any firing of ICD. Patient states ambulates with the use of walker or cane. Patient denies any pain to hip, ankle or foot. Denies any other noted i njury or pain. EMS arrived and found patient to be hypoxic with a oxygen saturation of 80 on room air. Patient denies any history of COPD or lung problems and is not oxygen dependent at home. Patient reports that she was shallow breathing after fall secondary to pain and she was unable to get herself up. Denies history of heart failure, known kidney problems, diabetes. Denies any recurrent or recent CP or SOB. Denies fever/chills, diaphoresis, N/V/D/C, ROSALES, dizziness, syncope, vision changes, neck pain, CP, SOB, orthopnea, palpitations, cough, sore throat, choking, otalgia, rhinorrhea, abdominal pain, paresthesias, weakness, extremity weakness, extremity edema, rashes, urinary symptoms. Principal Diagnosis 1. Right femur fracture status post repair 2. Elevated troponin, likely demand ischemia in setting of hypoxia/blood loss 3. Acute blood loss anemia requiring blood transfusion 4. Vaginal bleeding 5. Wound x 2 - buttock Secondary diagnoses on discharge 1. History of ischemic cardiomyopathy/chronic systolic heart failure 2. Hypothyroidism 3. Coronary artery disease 4. Morbid obesity 5. Fuchs's catheter and situ Discharge Exam GENERAL- AAOX3, No acute distress; MORBIDLY OBESE + LUNGS- Air entry bilaterally decreased, no wheezing, rhonchi HEART- Regular rate and rhythm. No murmurs ABDOMEN- COLOSTOMY + Soft, non tender, non distended, Bowel sounds heard. EXTREMITIES- s/p right femur fracture - brace; Bilateral Lymphedema - Urinary catheter + Discharge Data Allergies Allergy/AdvReac Type Severity Reaction Status Date / Time naproxen Allergy feet Unverified 03/17/19 12:33 swelling acetaminophen AdvReac Unknown NAUSEA Verified 03/17/19 12:33 oxycodone AdvReac Unknown NAUSEA Verified 03/17/19 12:33 clonidine AdvReac NAUSEA Verified 03/17/19 12:33 Consultations 03/17/19 15:20 ED Decision to Admit Stat 03/17/19 16:08 Consult Orthopedic Surgery Routine 03/17/19 17:53 Consult Anesthesiology Stat Consult Case Management - Discharge Planning Routine 03/17/19 17:58 Consult Health Information Management Routine 03/17/19 21:16 Consult Health Information Management Routine 03/18/19 11:32 Consult Cardiology Stat 03/18/19 17:42 Consult Case Management - Discharge Planning Routine 03/18/19 18:04 Consult Ammonia Worker Stat 03/19/19 11:24 Consult Cardiology Routine Procedures Performed Operation Date: 03/18/19 07:05 Actual Procedures p Open Reduction Internal Fixation Right Distal displaced, comminuted, angulated Femur Fracture of patient with BMI greater than 53. (Right) - Donald Mustafa, DO Ordered Studies 03/17/19 11:14 CT abd pelvis IV con only Stat CT chest w con Stat 03/17/19 11:18 CT cervical spine wo con Stat CT head/brain wo con Stat 03/17/19 15:29 US venous doppler LE BI Stat 03/17/19 17:53 CT hip LT wo con Urgent 03/17/19 18:25 CT femur RT wo con Routine 03/18/19 FL femur RT 2V Routine FL fluoroscopy <1hr Routine 03/20/19 20:25 CT chest wo con Routine Hospital Course (1) Femur fracture, right: Right displaced comminuted angulated distal femur fracture secondary to mechanical fall. ORIF 03/[address] Mustafa. POD # 12. -Fitted for custom hinged knee brace to be locked in extension. -Nonweightbearing RLE with brace on. -Continue PT / OT- OOB to chair- continue on discharge -Pain medication- IV Dilaudid 0.5 mg every 4 hours as needed, Nucynta as needed (as intolerant to percocet and norco). (2) Coronary artery disease: History of ischemic heart disease. Serum troponin as high as 3.580. Echo demonstrated akinesis of inferior and inferolateral diaz with overall LVEF 25-30%. -Elevated troponin attributed to demand ischemia in setting of hypoxia and acute blood loss. -Started on ASA, Statin, Low dose lisinopril 2.5 mg, Toprol XL during this admission as was not on any cardiac meds and EF 25-30%. Refusing ASA due to vaginal bleeding, statin due to muscle aches in past. BP in 90-100s asymptomatic. Meds with holding parameters -S/P Cardiology evaluation (3) Elevated troponin: As discussed above. (4) Vaginal bleeding: Per RN, noted to have pinkish bloody discharge from vagina today. Was started on aspirin during this admission- patient adamant about stopping it. Will stop aspirin. Says she has had this in past for which she saw her doctor who did biopsy- inflammation and no malignancy. -Recommend to follow up again with DIE CASTING SUPERVISOR. Explained the importance of further evaluation for postmenopausal vaginal bleeding. Understands and will do s o (5) Encounter for wound care: S/P Femur fracture Per Wound care- 2 sores buttock area- one concerning for cancer and should be evaluated by dermatology outpatient -Wound care to be continued -Follow up with dermatology outpatient. Understands the importance of doing so (6) Chronic systolic (congestive) heart failure: Chronic left ventricular systolic heart failure attributed to ischemic cardiomyopathy. Echo as noted above showed LVEF 25-30%. Chronic lower extremity lymphedema. Was not taking any cardiac meds at time of admission. -Started on ASA, Statin, Low dose lisinopril 2.5 mg, Toprol XL during this admission as was not on any cardiac meds and EF 25-30%. Refusing ASA due to vaginal bleeding, statin due to muscle aches in past. BP in 90-100s asymp tomatic. Meds with holding parameters. -Diurese as tolerated with furosemide 40 mg daily and spironolactone 12.5 mg daily. -Started on KCl 20 mEq daily. (7) Hypothyroidism: TSH slightly elevated @ 5.5. -Continue levothyroxine. -Recheck TSH after recovery from current illness. (8) Morbid obesity: Wt 118 kg. BMI 50.8. -Heart healthy diet. (9) Acute blood loss as cause of postoperative anemia: Acute blood loss anemia secondary to femur fracture. Hgb was 12.8 on admission and fell as low as 7.6. Stool heme neg 03/22. -Has received 6 units PRBCs -Monitor H & H outpatient - stable so far (10) Urinary catheter in place: -Patient is hesitant to get foleys removed which was placed during this admission -Continue with foleys catheter on discharge. Consider removing it at rehab. (11) DVT prophylaxis: -SQ heparin. (12) Discharge planning issues: PT/OT recommends rehab Case Management following. Primary Care follow-up with Dr. Deyanira Romero. Follow up with ortho Dr Mustafa in 12-14 days post operatively. all [phone] for appt. [facility] has a bed today. Ok to discharge today. Total Time Total Time Spent Total Time Spent (In Minutes): 50 minuters Discharge Plan Discharge Items Patient Disposition: Transfer Acute Care Hospital Reason For Visit: FALL/FRACTURE OF RT FEMUR Discharge Diagnosis: Femur fracture s/p repair Discharge Goals: Decrease discomfort Activity: Per 'Additional Instructions' section Activity Comment: Non weight bearing RLE - PT/OT Weightbearing: Right non-weightbearing Non-emergency contact: Primary Care Provider Call non-emergency contact if: your symptoms worsen Follow-up/Referrals: Donald Mustafa DO [Surgeon] - (Follow up 14 days post op for suture/staple removal and re-evaluation.) Deyanira Romero MD [Primary Care Provider] - Diet: Heart Healthy and Low Fat Addtl Provider Instructions: MEDICATION CHANGES: New medications: 1. Lisinopril 2.5 mg daily 2. Toprol XL 12.5 mg BID (Both for ischemic cardiomyopathy with low EF) 3. Potassium supplement MONITOR 1. Vaginal bleeding- Needs further evaluation outpatient 2. Needs dermatology evaluation for wound- buttock for further evaluation 3. Tends to have borderline low BP in 90-100s 4. Need to consider foleys catheter removal when more mobile ORTHOPEDICS INSTRUCTIONS Non weightbearing on the right lower extremity. Must wear brace on right lower extremity at all times except for bathing/changing clothes. No range of motion of the right knee until seen in office for first follow up visit. Keep wound covered with gauze. Do not soak wound, no tub baths. Call the office if you are having increased pain, swelling, redness of the wound, temp 101 or greater. Follow up with Dr Mustafa in 1 week. [phone] Prescriptions: New furosemide 40 mg Tablet 40 mg PO DAILY 30 Days Qty: 30 RF: 0 polyethylene glycol 3350 [Miralax] 17 gram Powder In Packet 17 g PO DAILY PRN (Reason: Constipation) 30 Days Qty: 30 RF: 0 spironolactone 25 mg Tablet 12.5 mg PO DAILY 30 Days Qty: 15 RF: 0 pantoprazole 40 mg Tablet,Delayed Release (Dr/Ec) 40 mg PO QAM 30 Days Qty: 30 RF: 0 nitroglycerin [Nitrostat] 0.4 mg Tablet, Sublingual 0.4 mg sublingual UD PRN (Reason: chest pain) 30 Days Qty: 30 RF: 0 metoprolol succinate 25 mg Tablet Extended Release 24 Hr 12.5 mg PO BID 30 Days Qty: 30 RF: 0 lisinopril 2.5 mg Tablet 2.5 mg PO QAM 30 Days Qty: 30 RF: 0 Nucynta 50 mg Tablet 50 - 100 mg PO Q4H PRN (Reason: pain) 30 Days Qty: 30 RF: 0 Continued levothyroxine 75 mcg tablet 75 mcg PO QAM RF: 0 Discontinued ibuprofen [Advil] 200 mg Tablet 600 mg PO Q6H PRN (Reason: Pain) RF: 0 Stand-Alone Forms: [facility], [facility] Discharge Orders: Discharge Order (Routine); Ordered 03/30/19 Ordered By: Dipika Zapien Admission Data Admit Date/Time: 03/17/19 15:47 Attending Provider: Dipika Zapien Admit Provider: Annia Scott Primary Care Provider: Deyanira Romero Other Providers: Annia Scott ; Anthony Krishnamurthy ; Donald Mustafa ; Maged Milton ; Dayana Montoya Thomas J ; Jessy Torres ; Kam Carlton ; Fazal Juarez ; Cyrus Eaton ; Fazal Garrison Andrew J. ; Cyrus Merchant ; Reyes Zimmerman ; Clayton Milian ; Amilcar Evans ; Randall More ; Magnus Corona ; Mikhail Costello ; Derrick Taylor ; Jessy Garcia ; Cecilio Bridges ; Darius Luther ; Junito Rodgers ; Edson Cortes ; Fawad Gamino ; Aime Arana ; Koffi Sanders ; Que Singh. Service: Medical
== END 2019-03-30 16:45 | DRG 480 ==
LOC: ED 11:02 → 2W 15:47 → SUATTDRO 15:47 → 2W 17:38 → 1E 03-18 16:51 → 3W 03-21 12:01
DX: Z88.5 Allergy status to narcotic agent; Z87.891 Personal history of nicotine dependence; J95.2 Acute pulmonary insufficiency following nonthoracic surgery; E66.01 Morbid (severe) obesity due to excess calories; I50.32 Chronic diastolic (congestive) heart failure; Z86.73 Personal history of transient ischemic attack (TIA), and cerebral infarction without residual deficits; Z93.3 Colostomy status; I21.A1 Myocardial infarction type 2; I25.5 Ischemic cardiomyopathy; I25.10 Atherosclerotic heart disease of native coronary artery without angina pectoris; Z85.038 Personal history of other malignant neoplasm of large intestine; E03.9 Hypothyroidism, unspecified; N17.9 Acute kidney failure, unspecified; Z68.43 Body mass index [BMI] 50.0-59.9, adult; N93.9 Abnormal uterine and vaginal bleeding, unspecified; R09.02 Hypoxemia; W18.2XXA Fall in (into) shower or empty bathtub, initial encounter; I67.9 Cerebrovascular disease, unspecified; I25.2 Old myocardial infarction; Z95.810 Presence of automatic (implantable) cardiac defibrillator; D62 Acute posthemorrhagic anemia; S72.491A Other fracture of lower end of right femur, initial encounter for closed fracture; N28.9 Disorder of kidney and ureter, unspecified; E83.39 Other disorders of phosphorus metabolism; I11.0 Hypertensive heart disease with heart failure

== ENCOUNTER 2021-03-25 11:25 | Inpatient (IN) ==
--- NOTE | 2021-03-25 11:55 | Emergency Department Note ---
Impression & Plan Hypoxia, CHF (congestive heart failure), SOB (shortness of breath), Cough ED Provider Note NAME: DARREN VOGT AGE: 80 SEX: F : 1940 ARRIVES VIA: Ambulance INFORMANT: [Patient][ems] ED PROVIDER(S): [Joselo Fernandez MD] CHIEF COMPLAINT: Short of breath HISTORY OF PRESENT ILLNESS: The patient is a 80-year-old female who states that for the last 2 weeks, she has had some shortness of breath, cough and trouble breathing. The patient did have her first Covid vaccination yesterday. The patient does not typically wear oxygen. She does have a pacer defibrillator. The patient states that she is bedbound and thus, she cannot say that any type of exertion makes things worse. The patient only takes a medication for her thyroid. She does not have a history of DVT or PE. She does not have any diagnosed lung disease. On her past history, she appears to have a chronic CHF diagnosis. The patient states that she has not had fever. Her cough has been basically nonproductive, sometimes she has had some clear sputum production. She denies any chest pain. Of note, when EMS arrived, her oxygen saturations were in the mid 80s, she had to be placed on oxygen and her saturation increased. She felt better on the O2. REVIEW OF SYSTEMS: See HPI for pertinent positives and negatives. A total of ten systems were reviewed and were otherwise negative. PMHx/PSHx: See Below SOCIAL HISTORY: See Below. PHYSICAL EXAM: GENERAL: Patient is in no acute distress. HEENT: No acute trauma, normocephalic atraumatic, mucous membranes moist, no nasal congestion, no scleral icterus. NECK: No stridor, no adenopathy, no meningismus, trachea is midline. LUNGS: Clear to auscultation bilaterally when listening anterior, no wheeze, no rhonchi, breath sounds equal. HEART: Without murmurs gallops or rubs, regular rate and rhythm. ABDOMEN: Soft, nontender, bowel sounds positive, no hernias, no peritonitis. She has a colostomy bag on the left. EXTREMITIES: No cyanosis, mild bilateral pedal edema, full range of motion of all the joints without pain or difficulty, no signs for acute trauma. NEUROLOGIC: Oriented x 3, no acute motor or sensory deficits, no focal weakness. SKIN: No rash, no jaundice, no diaphoresis. DIFFERENTIAL DIAGNOSIS: Reactive airway disease, pneumonia, pneumothorax, COPD, CHF, influenza, COVID- 19, infection, cardiac ischemia, pulmonary embolism, bronchitis, musculoskeletal, gastrointestinal, as well as other pathologies. EMERGENCY DEPARTMENT COURSE/PROCEDURES: ECG: Indication was shortness of breath. The ECG shows a normal sinus rhythm with a rate of 80. The QTc is 475. There is a nonspecific interventricular conduction delay. There is no ST elevation, no PVCs. Compared to an ECG from 19 Mar 2019, PVCs are no longer present. A nonspecific intraventricular conduction block is now present. Continuous Cardiac Monitoring: An order was placed for continuous cardiac monitoring. The monitor shows a rate of 88 with normal sinus rhythm. Critical Care Note: I have personally spent 41 minutes of critical care time in the direct management of this patient. This includes bedside care, interpretation of diagnostic studies, and testing, discussion with consultants, patient, and family members, and other required patient management activities. This 41 minutes is in excess of all separately billable procedures. MEDICAL DECISION MAKING: There is no leukocytosis or concerning anemia. There is a normal platelet count. No coagulopathy. No significant electrolyte abnormality or kidney failure. Lactic acid level is not elevated making sepsis less likely. No concerning liver enzyme elevation. The patient appears to be in a euthyroid state. BNP is elevated consistent with CHF/fluid overload. Covid and influenza testing returned negative. Chest film does suggest some CHF. On exam, the patient was resting comfortably with nasal cannula O2 in place. She had been n oted to be hypoxic by EMS. She felt better after oxygen was applied. The patient appears to be short of breath from fluid overload/CHF. She was given IV Lasix, 60 mg, she was given nitroglycerin paste. Patient was maintained on nasal cannula oxygen. The patient is in need of a hospital stay. Further diuresis is required. I did speak with the patient and case management. The on-call hospitalist was consulted. Past Med/Surg History Medical History Cardiac defibrillator in place Cardiac defibrillator in place Cerebrovascular disease "stroke years ago, no residual symptoms" Colon cancer Coronary artery disease History of hypertension Hypothyroidism Surgical History Status post appendectomy Status post bilateral oophorectomy Status post cholecystectomy Status post coronary artery stent placement Status post implantation of automatic cardioverter/defibrillator (AICD) Status post partial resection of colon Family History Other Family history unknown Social History Smoking Status: Former smoker Number of Years Since Quit: 30; Hx Alcohol Use: No Hx Substance Use: No Preferred Language: Indian Communication Ability: Effective Tdp Displays Analyst Required: No Beliefs That Will Affect Care: None Current Living Situation: Spouse Other Information That Helps Us Care for You: No Feels Safe at Home: Yes Safety Concerns: Feels Safe At This Time Assistive Devices: Glasses Allergies Allergies Allergy/AdvReac Type Severity Reaction Status Date / Time naproxen Allergy feet Unverified 03/25/21 12:24 swelling acetaminophen AdvReac Unknown NAUSEA Verified 03/25/21 12:24 oxycodone AdvReac Unknown NAUSEA Verified 03/25/21 12:24 clonidine AdvReac NAUSEA Verified 03/25/21 12:24 Home Meds Home Medications Medication Instructions Recorded Confirmed levothyroxine 75 mcg PO QAM 03/17/19 03/25/21 Results & Data (ED) Vital Signs Vital Signs - 24 hr 03/25/21 11:28 03/25/21 11:32 03/25/21 11:34 Temperature 36.3 C L Temperature Source Oral Pulse Rate 87 88 92 H Pulse Rate from SpO2 Sensor 87 91 H Respiratory Rate 19 22 21 Respiratory Effort / Characteristics Respiratory Depth Respiratory Pattern Blood Pressure 152/86 H 152/86 H Blood Pressure Mean 108 108 Pulse Oximetry 91 94 91 Oxygen Delivery Method Nasal Cannula Oxygen Flow Rate 4 Sepsis Recent Fever Within 48 Hours No Sepsis New/Unexplained Change in Mental Status N/A Sepsis Action Taken by Nursing No Action Required 03/25/21 11:49 03/25/21 12:00 03/25/21 12:30 Temperature Temperature Source Pulse Rate 80 81 Pulse Rate from SpO2 Sensor 81 81 Respiratory Rate 19 20 Respiratory Effort / Characteristics Non-Labored Respiratory Depth Normal Respiratory Pattern Regular Blood Pressure Blood Pressure Mean Pulse Oximetry 98 97 98 Oxygen Delivery Method Nasal Cannula Oxygen Flow Rate 4 Sepsis Recent Fever Within 48 Hours Sepsis New/Unexplained Change in Mental Status Sepsis Action Taken by Nursing 03/25/21 13:00 03/25/21 13:30 Temperature Temperature Source Pulse Rate 83 77 Pulse Rate from SpO2 Sensor 83 77 Respiratory Rate 17 19 Respiratory Effort / Characteristics Respiratory Depth Respiratory Pattern Blood Pressure Blood Pressure Mean Pulse Oximetry 96 99 Oxygen Delivery Method Oxygen Flow Rate Sepsis Recent Fever Within 48 Hours Sepsis New/Unexplained Change in Mental Status Sepsis Action Taken by Prison Medications Current Medication List: was personally reviewed by me Laboratory Data Attestation: I reviewed the patient's lab results. Result diagrams: 03/25/21 12:13 03/25/21 12:13 Lab Results 03/25/21 03/25/21 03/25/21 Range/Units 12:13 12:13 12:13 WBC 10.76 (4.8-10.8) K/uL RBC 5.05 (4.2-5.4) M/uL Hgb 14.3 (12.0-16.0) g/dL Hct 44.8 (37-47) % MCV 88.7 (80-100) fL MCH 28.3 (25-34) pg MCHC 31.9 L (32-36) g/dL RDW Std Deviation 55.8 H (36.4-46.3) fL RDW Coeff of Johanne 17.2 H (11.5-14.5) % Plt Count 263 (130-400) K/uL MPV 9.5 (7.4-10.4) fL Immature Gran % (Auto) 0.2 % Neut % (Auto) 88.9 % Lymph % (Auto) 5.0 % [place] % (Auto) 5.3 % Eos % (Auto) 0.4 % Baso % (Auto) 0.2 % Neut # (Auto) 9.57 H (1.4-6.5) K/uL Lymph # (Auto) 0.54 L (1.2-3.4) K/uL [place] # (Auto) 0.57 (0.11-0.59) K/uL Eos # (Auto) 0.04 (0-0.5) K/uL Baso # (Auto) 0.02 (0-0.2) K/uL Immature Gran # (Auto) 0.02 (0.00-0.02) K/uL PT 9.9 (9.0-12.0) Seconds INR 1.0 (0.9-1.1) APTT 23.3 (21.0-31.0) Seconds PTT Ratio 0.9 Sodium 135 L (136-145) mmol/L Potassium 4.4 (3.5-5.1) mmol/L Chloride 101 (98-107) mmol/L Carbon Dioxide 29 (21-32) mmol/L Anion Gap 5.0 (3-11) BUN 16 (7-18) mg/dl Creatinine 0.55 L (0.6-1.2) mg/dl Est Cr Clr Drug Dosing 97.5 ml/min Est GFR ( Amer) 104.1 ml/min Est GFR (Non-Af Amer) 89.8 ml/min BUN/Creatinine Ratio 29.7 H (10-20) Glucose 133 H (70-99) mg/dl Lactate (0.4-2.0) mmol/L Calcium 9.3 (8.5-10.1) mg/dl Magnesium 2.4 (1.8-2.4) mg/dl Total Bilirubin 0.6 (0.2-1) mg/dl AST 15 (15-37) U/L ALT 19 (12-78) U/L Alkaline Phosphatase 99 (45-117) U/L Troponin I < 0.015 (0-0.045) ng/ml NT-Pro-B Natriuret Pep 5269 H (0-1800) pg/ml Total Protein 7.4 (6.4-8.2) gm/dl Albumin 3.2 L (3.4-5.0) gm/dl Globulin 4.2 H (2.5-4.0) gm/dl Albumin/Globulin Ratio 0.8 L (0.9-2) TSH 2.630 (0.300-4.500) uIu/ml COVID-19 Eval Order SARS-CoV-2 (PCR) (Negative) Influ A Molecular Assay (Negative) Influ B Molecular Assay (Negative) 03/25/21 03/25/21 03/25/21 Range/Units 12:13 12:13 12:13 WBC (4.8-10.8) K/uL RBC (4.2-5.4) M/uL Hgb (12.0-16.0) g/dL Hct (37-47) % MCV (80-100) fL MCH (25-34) pg MCHC (32-36) g/dL RDW Std Deviation (36.4-46.3) fL RDW Coeff of Johanne (11.5-14.5) % Plt Count (130-400) K/uL MPV (7.4-10.4) fL Immature Gran % (Auto) % Neut % (Auto) % Lymph % (Auto) % [place] % (Auto) % Eos % (Auto) % Baso % (Auto) % Neut # (Auto) (1.4-6.5) K/uL Lymph # (Auto) (1.2-3.4) K/uL [place] # (Auto) (0.11-0.59) K/uL Eos # (Auto) (0-0.5) K/uL Baso # (Auto) (0-0.2) K/uL Immature Gran # (Auto) (0.00-0.02) K/uL PT (9.0-12.0) Seconds INR (0.9-1.1) APTT (21.0-31.0) Seconds PTT Ratio Sodium (136-145) mmol/L Potassium (3.5-5.1) mmol/L Chloride (98-107) mmol/L Carbon Dioxide (21-32) mmol/L Anion Gap (3-11) BUN (7-18) mg/dl Creatinine (0.6-1.2) mg/dl Est Cr Clr Drug Dosing ml/min Est GFR ( Amer) ml/min Est GFR (Non-Af Amer) ml/min BUN/Creatinine Ratio (10-20) Glucose (70-99) mg/dl Lactate 1.2 (0.4-2.0) mmol/L Calcium (8.5-10.1) mg/dl Magnesium (1.8-2.4) mg/dl Total Bilirubin (0.2-1) mg/dl AST (15-37) U/L ALT (12-78) U/L Alkaline Phosphatase (45-117) U/L Troponin I (0-0.045) ng/ml NT-Pro-B Natriuret Pep (0-1800) pg/ml Total Protein (6.4-8.2) gm/dl Albumin (3.4-5.0) gm/dl Globulin (2.5-4.0) gm/dl Albumin/Globulin Ratio (0.9-2) TSH (0.300-4.500) uIu/ml COVID-19 Eval Order Covid19 at [facility] SARS-CoV-2 (PCR) (Negative) Influ A Molecular Assay Negative (Negative) Influ B Molecular Assay Negative (Negative) 03/25/21 Range/Units 12:13 WBC (4.8-10.8) K/uL RBC (4.2-5.4) M/uL Hgb (12.0-16.0) g/dL Hct (37-47) % MCV (80-100) fL MCH (25-34) pg MCHC (32-36) g/dL RDW Std Deviation (36.4-46.3) fL RDW Coeff of Johanne (11.5-14.5) % Plt Count (130-400) K/uL MPV (7.4-10.4) fL Immature Gran % (Auto) % Neut % (Auto) % Lymph % (Auto) % [place] % (Auto) % Eos % (Auto) % Baso % (Auto) % Neut # (Auto) (1.4-6.5) K/uL Lymph # (Auto) (1.2-3.4) K/uL [place] # (Auto) (0.11-0.59) K/uL Eos # (Auto) (0-0.5) K/uL Baso # (Auto) (0-0.2) K/uL Immature Gran # (Auto) (0.00-0.02) K/uL PT (9.0-12.0) Seconds INR (0.9-1.1) APTT (21.0-31.0) Seconds PTT Ratio Sodium (136-145) mmol/L Potassium (3.5-5.1) mmol/L Chloride (98-107) mmol/L Carbon Dioxide (21-32) mmol/L Anion Gap (3-11) BUN (7-18) mg/dl Creatinine (0.6-1.2) mg/dl Est Cr Clr Drug Dosing ml/min Est GFR ( Amer) ml/min Est GFR (Non-Af Amer) ml/min BUN/Creatinine Ratio (10-20) Glucose (70-99) mg/dl Lactate (0.4-2.0) mmol/L Calcium (8.5-10.1) mg/dl Magnesium (1.8-2.4) mg/dl Total Bilirubin (0.2-1) mg/dl AST (15-37) U/L ALT (12-78) U/L Alkaline Phosphatase (45-117) U/L Troponin I (0-0.045) ng/ml NT-Pro-B Natriuret Pep (0-1800) pg/ml Total Protein (6.4-8.2) gm/dl Albumin (3.4-5.0) gm/dl Globulin (2.5-4.0) gm/dl Albumin/Globulin Ratio (0.9-2) TSH (0.300-4.500) uIu/ml COVID-19 Eval Order SARS-CoV-2 (PCR) NEGATIVE (Negative) Influ A Molecular Assay (Negative) Influ B Molecular Assay (Negative) Administered Medications Enoxaparin Sodium (Enoxaparin Inj 40 Mg/0.4 Ml Syr) 40 mg SQ Q12 SAM Stop: 04/24/21 15:04 Last Admin: 03/25/21 16:14 Dose: 40 mg Documented by: [id number] Potassium Chloride (Potassium Chloride Crtab 20 Meq Tabcr) 20 meq PO QAM SAM Stop: 04/24/21 15:14 Last Admin: 03/25/21 16:14 Dose: 20 meq Documented by: [id number] Discontinued Medications Furosemide (Furosemide 40 Mg/4 Ml Vial) 60 mg IV NOW STA Stop: 03/25/21 13:08 Last Admin: 03/25/21 14:22 Dose: 60 mg Documented by: [id number] Nitroglycerin (Nitroglycerin 2% Ointment 30gm Tube) 1 inch EXT NOW STA Stop: 03/25/21 13:09 Last Admin: 03/25/21 14:21 Dose: 1 inch Documented by: [id number] Imaging Data Radiologist's Impression: Chest X-Ray 03/25/21 11:49 XR chest 1V portable HISTORY: 80 years-old Female SOB acute shortness of breath COMPARISON: Chest radiograph 03/21/2019 TECHNIQUE: Supine AP view of the chest FINDINGS: Single lead left subclavian pacer/AICD. Cardiac silhouette is enlarged. Pulmonary vascular congestion. Reticular interstitial opacities with ill-defined right upper lung densities suggest asymmetric pulmonary edema. Trace pleural effusions with mild bibasilar opacities. Degenerative changes of the shoulders and spine. IMPRESSION: 1. Cardiomegaly with mild pulmonary edema. 2. Trace pleural effusions with bibasilar opacities suggestive of atelectasis. ACT 112: Negative or not required by law. The above report was generated using voice recognition software. It may contain grammatical, syntax or spelling errors. Electronically signed by: Ike Schilling M.D. 03/25/2021 12:23 PM Discharge Plan Visit Data Chief Complaint: Shortness of Breath/Dyspnea Stated Complaint: SOB after 1st COVID vaccine ED Provider: Joselo Fernandez Discharge Problem: Hypoxia, CHF (congestive heart failure), SOB (shortness of breath), Cough Patient Disposition: Admitted As Inpatient Condition: Fair Discharge Instructions Interventions: ED Discharge Assessment Last Done: 03/25/21 14:31 Discharge Problem: CHF (congestive heart failure) Qualifiers: Heart failure type: unspecified Heart failure chronicity: acute on chronic Qualified Code(s): I50.9 - Heart failure, unspecified
--- NOTE | 2021-03-25 12:24 | XRay Report ---
XR chest 1V portable HISTORY: 80 years-old Female SOB acute shortness of breath COMPARISON: Chest radiograph 03/21/2019 TECHNIQUE: Supine AP view of the chest FINDINGS: Single lead left subclavian pacer/AICD. Cardiac silhouette is enlarged. Pulmonary vascular congestion . Reticular interstitial opacities with ill-defined right upper lung densities suggest asymmetric pul monary edema. Trace pleural effusions with mild bibasilar opacities. Degenerative changes of the shou lders and spine. IMPRESSION: 1. Cardiomegaly with mild pulmonary edema. 2. Trace pleural effusions with bibasilar opacities suggestive of atelectasis. ACT 112: Negative or not required by law. The above report was generated using voice recognition software. It may contain grammatical, syntax o r spelling errors. Electronically signed by: Ike Schilling M.D. 03/25/2021 12:23 PM
[2021-03-25 12:25] LABS: Basophils # (auto) 0.02 K/uL (0-0.2); Basophils % (auto) 0.2 %; Eosinophils # (auto) 0.04 K/uL (0-0.5); Eosinophils % (auto) 0.4 %; Hematocrit (blood only) 44.8 % (37-47); Hemoglobin 14.3 g/dL (12.0-16.0); Immature Granulocytes # (auto) 0.02 K/uL (0.00-0.02); Immature Granulocytes % (auto) 0.2 %; Lymphocytes # (auto) 0.54 K/uL (1.2-3.4); Mean Corpuscular Hemoglobin 28.3 pg (25-34); Mean Corpuscular Hgb Conc 31.9 g/dL (32-36); Mean Corpuscular Volume 88.7 fL (80-100); Mean Platelet Volume 9.5 fL (7.4-10.4); Monocytes # (auto) 0.57 K/uL (0.11-0.59); Monocytes % (auto) 5.3 %; Neutrophils # (auto) 9.57 K/uL (1.4-6.5); Neutrophils % (auto) 88.9 %; Platelet Count 263 K/uL (130-400); RDW Coefficient of Variation 17.2 % (11.5-14.5); RDW Standard Deviation 55.8 fL (36.4-46.3); Red Blood Count 5.05 M/uL (4.2-5.4); White Blood Count 10.76 K/uL (4.8-10.8)
[2021-03-25 12:37] LABS: Partial Thromboplastin Ratio 0.9; Partial Thromboplastin Time 23.3 Seconds (21.0-31.0); Prothrombin Time 9.9 Seconds (9.0-12.0)
[2021-03-25 12:40] LABS: Albumin Level 3.2 gm/dl (3.4-5.0); BUN Creatinine Ratio 29.7 (10-20); Blood Urea Nitrogen 16 mg/dl (7-18); Calcium 9.3 mg/dl (8.5-10.1); Carbon Dioxide 29 mmol/L (21-32); Chloride 101 mmol/L (98-107); Creatinine Clr Calc Pharmacy 97.5 ml/min; Est GFR (African American) 104.1 ml/min; Est GFR (Non-African American) 89.8 ml/min; Glucose 133 mg/dl (70-99); Magnesium 2.4 mg/dl (1.8-2.4); Potassium 4.4 mmol/L (3.5-5.1); Sodium 135 mmol/L (136-145)
[2021-03-25 12:42] LABS: Influenza A virus by PCR Negative (Negative); Influenza B virus by PCR Negative (Negative)
[2021-03-25 12:51] LABS: Alanine Aminotransferase 19 U/L (12-78); Albumin Globulin Ratio 0.8 (0.9-2); Alkaline Phosphatase 99 U/L (45-117); Aspartate Aminotransferase 15 U/L (15-37); Bilirubin,Total 0.6 mg/dl (0.2-1); Globulin 4.2 gm/dl (2.5-4.0); NT Pro B Type Natriuretic Pept 5269 pg/ml (0-1800); Total Protein 7.4 gm/dl (6.4-8.2); Troponin I < 0.015 ng/ml (0-0.045)
[2021-03-25] MEDS ORDERED: FUROSEMIDE 40 MG/4 ML VIAL IV STA (13:07)
[2021-03-25] MEDS ORDERED: NITROGLYCERIN 2% OINTMENT 30GM TUBE EXT STA (13:08)
--- NOTE | 2021-03-25 13:34 | Electrocardiogram Report ---
Test Reason : Blood Pressure : / mmHG Vent. Rate : 080 BPM Atrial Rate : 080 BPM P-R Int : 188 ms QRS Dur : 138 ms QT Int : 412 ms P-R-T Axes : 060 -25 109 degrees QTc Int : 475 ms Normal sinus rhythm Left atrial enlargement Non-specific intra-ventricular conduction block Possible Old Anterior infarct (cited on or before 19-MAR-2019) Abnormal ECG When compared with ECG of 19-MAR-2019 12:39, Premature ventricular complexes no longer present QRS duration has increased Confirmed by Julian Morejon ([id number]) on 03/25/2021 1:33:50 PM Referred By: REFERRED SELF Confirmed By:Julian Morejon
--- NOTE | 2021-03-25 13:53 | History & Physical Report ---
Date of Service March 25, 2021 Assessment & Plan (1) Acute on chronic HFrEF (heart failure with reduced ejection fraction): (2) Hypoxia: (3) Hyponatremia: (4) Ischemic cardiomyopathy: (5) Cardiac defibrillator in place: (6) Coronary artery disease: This is a 80 yr old F who has a significant PMH of Chronic HFrEF, AICD in place, hx of CVA, CAD with remote hx of PCI in past and hypothyroidism who presents to ED 2/2 to SOB and cough x 2 weeks. Pt with increased SOB x 1.5 days and clear productive cough x 2 weeks. Imaging with evidence of failure, SOB, +orthopnea, edema all consistent with decompensated HFrEF. Last echo February 2019 EF 25 to 30%, akinesis inferior/inferior lateral diza, global hypokinesis, aortic valve sclerosis moderate, grade 1 diastolic dysfunction. She is unsure who her licensing coordinator is. During last hospitalization she was seen and evaluated by cardiology. She was recommended to start aspirin, statin, lisinopril, metoprolol, Aldactone and diuresis as needed. 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 Patient unsure why she discontinued other additional medication except for levothyroxine. Patient is bedbound since right femur fracture. Admit to PCU Consult cardiology Obtain echocardiogram Place Fuchs catheter, strict I's and O's supplemental O2 as needed Lasix 60 mg administered IV in ED, monitor output Start Lasix IV 40 twice daily 03/26 Repeat troponin at 6 PM Await Echocardiogram results and then recommending restarting MARLA/evidence based BB if EF still reduced cardiac defib in place PT/OT 2/2 to ambulatory dysfxn encourage incentive spirometry (7) Ambulatory dysfunction: 2/2 to R femur fx in 2019 bedbound consult PT/OT (8) Morbid obesity: BMI 49.5 consult supervisor refining, low albumin heart healthy, low na diet recommend diet/lifestyle modifications (9) DVT prophylaxis: SQ Lovenox 40mg q12h Dispo: PCU PCP: Kwadwo Sterling, PA, case management consulted FULL CODE Pt was seen and examined in collaboration with Dr. Munoz, please see addendum History of Present Illness Chief Complaint: SOB and cough x 2 weeks. Primary Care Provider: Deyanira Romero MD This is a 80 yr old F who has a significant PMH of Chronic HFrEF, AICD in place, hx of CVA, CAD with remote hx of PCI in past and hypothyroidism who presents to ED 2/2 to SOB and cough x 2 weeks. Pt was known to our service back in 2018 when she had a prolonged hospitalization 2/2 to fall and R femur fx s/p ORIF. At that time she was on no cardiac medications and given hx of CAD was placed on asa, statin, metoprolol, lasix, aldactone and KCL. Echo at the time demonstrated EF 25-30% with akinesis of inferior and lateral diaz, global hypokinesis, AV sclerosis and grade 1 diastolic dysfunction. Her ASA was stopped due to vaginal bleeding during admission and statin was refused. Pt comes into ED today again on no cardiac medications, just levothyroxine. Her PCP is Dr. Romero and she, "can't remember," who her licensing coordinator is. She admits to being SOB for 1.5 days. She also c/o productive cough of clear sputum for 2 weeks. SOB got progressively worse over night, +orthopnea, increased lower ext swelling, and she states, "I came here because I thought I was having a heart attack." She continues to be bedbound ever since fracturing her femur and has since been unable to ambulate. She denies f/c/s, dizziness, lightheaded, chest pain, hemopytsis, palpitations, n/v/d, abdominal pain, melena, hematochezia, increased urg/freq with urination or dysuria. She is incontinent of urine and uses a brief. She does not monitor her weight on a regular basis and states her appetite has been good. She states she is trying to lose weight and avoids salt, sugar and breads. En route pt was found to be hypoxic by EMS with O2 sats in the 80s requiring 4L of supplemental O2. In ED CBC and CMP generally unremarkable, except for Na 135, bun 16, cr 0.55, glucose 133, probnp 5269. Her COVID screen was negative. She had her first covid vaccine yesterday. CXR shows pulmonary edema and trace pleural effusions. She was ordered nitro paste and 60mg IV lasix in ED, but has not yet been administered. Allergies Allergy/AdvReac Type Severity Reaction Status Date / Time naproxen Allergy feet Unverified 03/25/21 12:24 swelling acetaminophen AdvReac Unknown NAUSEA Verified 03/25/21 12:24 oxycodone AdvReac Unknown NAUSEA Verified 03/25/21 12:24 clonidine AdvReac NAUSEA Verified 03/25/21 12:24 Home Medications Medication Instructions Recorded Confirmed Type levothyroxine 75 mcg PO QAM 03/17/19 03/25/21 History Past Med/Surg History Medical History (Updated 03/25/21 @ 14:25 by Leigh Ann Morales PA-C) Cardiac defibrillator in place Cardiac defibrillator in place Cerebrovascular disease "stroke years ago, no residual symptoms" Colon cancer Coronary artery disease History of hypertension Hypothyroidism Surgical History Status post appendectomy Status post bilateral oophorectomy Status post cholecystectomy Status post coronary artery stent placement Status post implantation of automatic cardioverter/defibrillator (AICD) Status post partial resection of colon Family History Other Family history unknown Social History Smoking Status: Former smoker Number of Years Since Quit: 30; Hx Alcohol Use: No Hx Substance Use: No Preferred Language: Faroese Communication Ability: Effective Clinical Data Assistant Required: No Beliefs That Will Affect Care: None Current Living Situation: Spouse Feels Safe at Home: Yes Assistive Devices: Mechanical Lift Review of Systems Review of Systems: All systems reviewed & are unremarkable except as noted in HPI & below Physical Exam Physical Exam: Constitutional: Morbidly obese, chronic ill appearing F, vitals as above, NAD, sitting up in bed, pleasant, conversing easily Head: Normocephalic, Atraumatic Eyes: PERRL, conjunctivae normal, anicteric sclerae ENMT: external ear and nose normal, oropharynx normal Neck: trachea midline, no thyromegaly normal visual inspection Respiratory: normal respiratory effort, decreased bs at bases and poor inspiratory effort, distant lung sounds given body habitus, lungs otherwise clear to auscultation, no wheeze, rales, rhonchi. Normal insp/exp effort, no accessory muscle use Cardiovascular: distant heart sounds 2/2 to body habitus, RRR, no murmur appreciated, b/l lower ext pitting edema/obese lower ext, no erythema, warmth, negative homans Vessels: no JVD or carotid bruit Chest: normal inspection of chest Abdomen: obese abd, normal bowel sounds, soft, nontender, no hepatosplenomegaly Musculoskeletal: no cyanosis or clubbing, pt with very poor bed mobility, unable to assess strength Skin: no rashes, warm and dry normal turgor Neurologic: PERRL, EOMI, accommodation nl, no face palsy, no dysarthria CN's II-XI intact bilaterally and moves all extremities Psychiatric: A+Ox3, euthymic affect : deferred Results & Data Results & Data ([facility]) Vital Signs (Past 12 Hours) Vital Signs Temp Pulse Resp BP Pulse Ox 03/25/21 11:49 98 03/25/21 11:32 36.3 C L 88 22 152/86 H 94 Diagnostic Findings Chest X-Ray 03/25/21 11:49 XR chest 1V portable HISTORY: 80 years-old Female SOB acute shortness of breath COMPARISON: Chest radiograph 03/21/2019 TECHNIQUE: Supine AP view of the chest FINDINGS: Single lead left subclavian pacer/AICD. Cardiac silhouette is enlarged. Pulmonary vascular congestion. Reticular interstitial opacities with ill-defined right upper lung densities suggest asymmetric pulmonary edema. Trace pleural effusions with mild bibasilar opacities. Degenerative changes of the shoulders and spine. IMPRESSION: 1. Cardiomegaly with mild pulmonary edema. 2. Trace pleural effusions with bibasilar opacities suggestive of atelectasis. ACT 112: Negative or not required by law. The above report was generated using voice recognition software. It may contain grammatical, syntax or spelling errors. Electronically signed by: Ike Schilling M.D. 03/25/2021 12:23 PM ECG Rate (beats per minute): 80 Rhythm: normal sinus Findings: + prolonged QT (475 ms) Additional Comments: left atrial enlargement COVID-19 Results Results COVID-19 Adm Lab Results: RBC 5.05 M/uL (4.2-5.4) 03/25/21 WBC 10.76 K/uL (4.8-10.8) 03/25/21 Hgb 14.3 g/dL (12.0-16.0) 03/25/21 Hct 44.8 % (37-47) 03/25/21 Plt Count 263 K/uL (130-400) 03/25/21 Neutrophils (%) (Auto) 88.9 % 03/25/21 Lymphocytes (%) (Auto) 5.0 % 03/25/21 Monocytes # (Auto) 0.57 K/uL (0.11-0.59) 03/25/21 Eosinophils # (Auto) 0.04 K/uL (0-0.5) 03/25/21 Immature Granulocyte % (Auto) 0.2 % 03/25/21 Neutrophils # (Auto) 9.57 K/uL (1.4-6.5) H 03/25/21 Lymphocytes # (Auto) 0.54 K/uL (1.2-3.4) L 03/25/21 Monocytes # (Auto) 0.57 K/uL (0.11-0.59) 03/25/21 Eosinophils # (Auto) 0.04 K/uL (0-0.5) 03/25/21 Basophils # (Auto) 0.02 K/uL (0-0.2) 03/25/21 Immature Granulocyte # (Auto) 0.02 K/uL (0.00-0.02) 03/25/21 Na 135 mmol/L (136-145) L 03/25/21 K 4.4 mmol/L (3.5-5.1) 03/25/21 Cl 101 mmol/L (98-107) 03/25/21 CO2 29 mmol/L (21-32) 03/25/21 Anion Gap 5.0 (3-11) 03/25/21 BUN 16 mg/dl (7-18) 03/25/21 Creatinine 0.55 mg/dl (0.6-1.2) L 03/25/21 BUN/Creatinine Ratio 29.7 (10-20) H 03/25/21 Glucose Level 133 mg/dl (70-99) H 03/25/21 Ca 9.3 mg/dl (8.5-10.1) 03/25/21 Total Bilirubin 0.6 mg/dl (0.2-1) 03/25/21 AST/SGOT 15 U/L (15-37) 03/25/21 ALT/SGPT 19 U/L (12-78) 03/25/21 Alkaline Phosphatase 99 U/L (45-117) 03/25/21 Total Protein 7.4 gm/dl (6.4-8.2) 03/25/21 Albumin 3.2 gm/dl (3.4-5.0) L 03/25/21 Globulin 4.2 gm/dl (2.5-4.0) H 03/25/21 Albumin/Globulin Ratio 0.8 (0.9-2) L 03/25/21 Troponin I < 0.015 ng/ml (0-0.045) 03/25/21 XX-Uod-Z-Type Natriuretic Pep 5269 pg/ml (0-1800) H 03/25/21 PTT 23.3 Seconds (21.0-31.0) 03/25/21 INR 1.0 (0.9-1.1) 03/25/21 COVID-19 PCR NEGATIVE (Negative) 03/25/21 Chest X-Ray 03/25/21 Code Status & VTE Plan Code Status Full Code VTE Prophylaxis Plan VTE Prophylaxis will be ordered: Yes Supervising Physician Co-Signing Physician Notes I saw this patient with the physician assistant research scientist, I participated in the history, physical, review of systems, and physical exam. I reviewed the medications with the patient and the physician assistant research scientist and helped reconcile the medications. I helped take a detailed family and social history as well. I formulated the assessment and plan personally with the physician assistant research scientist and went over it wi th the patient. ROS-No Headache, No Visual Changes, No Nausea, No Vomiting, No Fever, No Chills, No Neck Pain or Stiffness, No Chest Pain, No Palpitations, + SOB, No PURCELL, + C ough, +Clear Sputum, No Wheezing, No Abdominal Pain, No Diarrhea, No Hematemesis, No Hemoptysis, No Unexpected Weight Loss, No Flank pain, No Melena, No Hematochezia, No Frequency, No Urgency, No Burning, No Hematuria, No Rashes, No Diaphoresis. Appetite is Normal Physical Exam Gen-AAO x 3, NAD, Afebrile, Obese Head-NCAT, EOMI, PERRLA, Anicteric Sclera, No Posterior Pharyngeal Erythema Neck-Supple, No JVD, No Thyromegaly, No Masses, No LAD, No Bruits Lungs-Clear to Auscultation Bilaterally, No Rales, No Rhonchi, No Wheezing, No Crepitus Chest-Distant HS, No S4, +S1, +S2, No S3, No Murmurs, No Rubs, No Gallops, No Ectopy, ICD Abdomen-Soft, Bowel Sounds Present, Non Tender, Non Distended, No Hepatomegaly, No Splenomegaly, No Palpable Masses, No Rebound, No Rigidity, No Guarding Musculoskeletal-Full Range of Motion Bilaterally, No CVAT Extremities-No Cyanosis, No Clubbing, No Edema Nuero-Cranial Nerves II-XII grossly intact, Motor WNL, DTRs WNL, Strength WNL, Non Focal Psych-Normal Mood
[2021-03-25] MEDS ORDERED: POLYETHYLENE (MIRALAX) 17 GM PACK PO PRN (14:52)
[2021-03-25] MEDS ORDERED: MAGNESIUM HYDROXIDE SUSP 30 ML UDC PO PRN (14:52)
[2021-03-25] MEDS ORDERED: ONDANSETRON INJ 2 MG/ML 2 ML VIAL IV PRN (14:52)
[2021-03-25] MEDS ORDERED: ALUMINUM/MAGNESIUM SUSP 30 ML UDC PO PRN (14:52)
[2021-03-25] MEDS: ENOXAPARIN INJ 40 MG/0.4 ML SYR SQ SCH ×2 (16:14→22:34)
[2021-03-25] MEDS: POTASSIUM CHLORIDE CRTAB 20 MEQ TABCR PO SCH (16:14)
[2021-03-26] MEDS: LEVOTHYROXINE SODIUM 75 MCG TABLET PO SCH (06:07)
[2021-03-26 08:05] LABS: Hematocrit (blood only) 40.6 % (37-47); Hemoglobin 13.3 g/dL (12.0-16.0); Mean Corpuscular Hemoglobin 28.4 pg (25-34); Mean Corpuscular Hgb Conc 32.8 g/dL (32-36); Mean Corpuscular Volume 86.8 fL (80-100); Mean Platelet Volume 9.4 fL (7.4-10.4); Platelet Count 238 K/uL (130-400); RDW Coefficient of Variation 17.3 % (11.5-14.5); RDW Standard Deviation 54.5 fL (36.4-46.3); Red Blood Count 4.68 M/uL (4.2-5.4); White Blood Count 8.67 K/uL (4.8-10.8)
[2021-03-26 08:42] LABS: BUN Creatinine Ratio 40.7 (10-20); Calcium 8.8 mg/dl (8.5-10.1); Creatinine Clr Calc Pharmacy 94.3 ml/min; Est GFR (African American) 103.5 ml/min; Est GFR (Non-African American) 89.3 ml/min; Magnesium 2.1 mg/dl (1.8-2.4); Potassium 3.7 mmol/L (3.5-5.1)
[2021-03-26] MEDS ORDERED: FUROSEMIDE 40 MG TAB PO SCH (09:00)
[2021-03-26] MEDS: POTASSIUM CHLORIDE CRTAB 20 MEQ TABCR PO SCH (09:40)
[2021-03-26] MEDS: ENOXAPARIN INJ 40 MG/0.4 ML SYR SQ SCH ×2 (09:40→20:04)
--- NOTE | 2021-03-26 09:45 | Cardiology Consultation ---
Date of Consultation March 26, 2021 Assessment & Plan (1) Acute on chronic HFrEF (heart failure with reduced ejection fraction): (2) SOB (shortness of breath): (3) Hypoxia: (4) Ambulatory dysfunction: (5) Cardiac defibrillator in place: (6) Coronary artery disease: (7) Cerebrovascular disease: Cardiac function remains significantly reduced. Patient not on any cardiac medications despite this. 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 At this point will treat attempt to reinstitute guideline directed medical therapy. She will be started on metoprolol succinate 25 mg daily today and she will be continued to be diuresed with Lasix 40 mg IV twice daily. We will reevaluate volume status in the a.m. and make further determination on direction of diuresis. Ideally, the patient should also be on a ARB, evidence-based beta-douglas, spironolactone and loop diuretics as necessary. History of Present Illness Attending Physician: Jeff Fernandez MD History of Present Illness It was my pleasure to see the patient in cardiac consultation today March 26, 2021. She is a very pleasant yet somewhat confused 80-year-old woman who presented to [facility] on 03/25/2021 with complaints of shortness of breath. She routinely follows with a city dispatch supervisor in [place], does not remember their name, and has only been seen by [facility] cardiology in consultation for preop risk assessment in 2019. At that time she was placed on guideline directed medical therapy, however, upon presentation she is not on any cardiac medications. She states that she is been getting short of breath for approximately the last day and a half. She provides a poor history. She states that she does not ever remember being on any cardiac medications in the past and is unsure when my previous recommendations were discontinued. She does not remember the last time she saw her city dispatch supervisor either. Past medical history as per my previous consultation in 2019: 1. Coronary artery disease with questionable history of AK. 2. Status post ICD placement. 3. Colon cancer. 4. Hypertension. 5. History of CVA. 6. Poor historian 7. Cardiomyopathy of unclear etiology, EF 25 to 30%. Allergies Allergy/AdvReac Type Severity Reaction Status Date / Time naproxen Allergy feet Unverified 03/25/21 12:24 swelling acetaminophen AdvReac Unknown NAUSEA Verified 03/25/21 12:24 oxycodone AdvReac Unknown NAUSEA Verified 03/25/21 12:24 clonidine AdvReac NAUSEA Verified 03/25/21 12:24 Home Medications Medication Instructions Recorded Confirmed Type levothyroxine 75 mcg PO QAM 03/17/19 03/25/21 History Patient History Medical History Cardiac defibrillator in place Cardiac defibrillator in place Cerebrovascular disease "stroke years ago, no residual symptoms" Colon cancer Coronary artery disease History of hypertension Hypothyroidism Surgical History Status post appendectomy Status post bilateral oophorectomy Status post cholecystectomy Status post coronary artery stent placement Status post implantation of automatic cardioverter/defibrillator (AICD) Status post partial resection of colon Family History Other Family history unknown Social History Smoking Status: Former smoker Number of Years Since Quit: 30; Hx Alcohol Use: No Hx Substance Use: No Preferred Language: Azeri Communication Ability: Effective Radiology Resident Required: No Beliefs That Will Affect Care: None marital status: Current Living Situation: Spouse Other Information That Helps Us Care for You: No Feels Safe at Home: Yes Safety Concerns: Feels Safe At This Time Assistive Devices: Glasses Review of Systems Review of Systems: All systems reviewed & are unremarkable except as noted in HPI & below Physical Exam Physical Exam: General: Awake, alert and oriented x 3. No acute distress. HEENT: Normocephalic, atraumatic. Pupils equal, round and reactive to light and accommodation. Extraocular muscles are intact. Anicteric sclera. Moist mucous membranes. Neck: No JVD. No bruit. Cardiovascular: Regular. Positive S-4. Normal S-1 and S-2. No S-3. 3/6 mid to late systolic ejection murmur, greatest at the right sternal border, second intercostal space with radiation to the bilateral carotids. No rubs. Pulmonary: Clear to auscultation bilaterally. No rales, rhonchi, or wheezing. Abdomen: Bowel sounds x 4, soft. No rebound, guarding or tenderness. No organomegaly. Extremities: No clubbing, cyanosis or edema. +2 pedal pulses bilaterally. Skin: Warm and dry. Results & Data ([facility]) Vital Signs (Past 12 Hours) Vital Signs Temp Pulse Pulse Resp BP Pulse Ox 03/26/21 08:00 36.7 C 88 69 19 110/69 95 03/26/21 04:28 36.5 C 77 18 101/65 91 03/26/21 00:27 88 03/25/21 23:36 36.9 C 81 18 110/66 91
[2021-03-26] MEDS: DICLOFENAC SOD 1% GEL 100 GM TUBE EXT SCH (11:42)
--- NOTE | 2021-03-26 16:28 | Hospitalist Progress Note ---
Date of Service March 26, 2021 Assessment & Plan (1) Acute on chronic HFrEF (heart failure with reduced ejection fraction): (2) Hypoxia: (3) Hyponatremia: (4) Ischemic cardiomyopathy: (5) Cardiac defibrillator in place: (6) Coronary artery disease: This is a 80 yr old F who has a significant PMH of Chronic HFrEF, AICD in place, hx of CVA, CAD with remote hx of PCI in past and hypothyroidism who presents to ED 2/2 to SOB and cough x 2 weeks. Pt with increased SOB x 1.5 days and clear productive cough x 2 weeks. Imaging with evidence of failure, SOB, +orthopnea, edema all consistent with decompensated HFrEF. Last echo February 2019 EF 25 to 30%, akinesis inferior/inferior lateral diaz, global hypokinesis, aortic valve sclerosis moderate, grade 1 diastolic dysfunction. During last hospitalization she was seen and evaluated by cardiology. She was recommended to start aspirin, statin, lisinopril, metoprolol, Aldactone and diuresis as needed. 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 Patient unsure why she discontinued other additional medication except for levothyroxine. Patient is bedbound since right femur fracture. Cardiology is on board. We will continue with IV Lasix 40 mg BID. Started on lopressor 25 mg daily. Follow catheter is in place for accurate ins and outs. Entry patient is on room air and reports she feels better. Work with PT/OT. Transthoracic echo is pending (7) Ambulatory dysfunction: 2/2 to R femur fx in 2019 bedbound Work with PT/OT. 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 Shortness of breath is improved. Adequate urine output since admission. Currently patient is down to room air. Review of Systems Review of Systems: All systems reviewed & are unremarkable except as noted in HPI & below Physical Exam Physical Exam: General: A&Ox3 HENT: NCAT, MMM, EOMI Eyes: PERRLA Neck: Supple, normal range of motion CVS: normal rate and rhythm Resp: b/l decrease breath sounds Abdomen: Soft, ND/NT, +BS Extremities: No c/c/e Neuro: face symmetric, strength grossly equal, no focal deficit Skin: warm and dry, no rashes/lesions/errythema Results & Data Results & Data ([facility]) Vital Signs (Past 12 Hours) Vital Signs Temp Pulse Pulse Resp BP Pulse Ox 03/26/21 16:00 88 03/26/21 12:15 36.9 C 74 19 115/69 96 03/26/21 08:00 36.7 C 88 69 19 110/69 95 03/26/21 04:28 36.5 C 77 18 101/65 91
[2021-03-26] MEDS ORDERED: FUROSEMIDE 40 MG in SYRINGE 0 ML IV SCH (16:45)
[2021-03-26] MEDS: METOPROLOL SUCC 25MG EXT REL TAB PO SCH (17:08)
[2021-03-26] MEDS: FUROSEMIDE 40 MG in SYRINGE 0 ML IV SCH (20:04)
[2021-03-27] MEDS: ACETAMINOPHEN 325 MG TAB PO PRN ×2 (01:09→10:56)
[2021-03-27] MEDS: LEVOTHYROXINE SODIUM 75 MCG TABLET PO SCH (06:30)
--- NOTE | 2021-03-27 07:45 | Electrocardiogram Report ---
Test Reason : Blood Pressure : / mmHG Vent. Rate : 080 BPM Atrial Rate : 080 BPM P-R Int : 188 ms QRS Dur : 132 ms QT Int : 374 ms P-R-T Axes : 032 -30 117 degrees QTc Int : 431 ms Poor data quality, interpretation may be adversely affected Normal sinus rhythm Left axis deviation Non-specific intra-ventricular conduction block Possible Old Anterior infarct Diffuse Nonspecific T wave abnormality Abnormal ECG When compared with ECG of 25-MAR-2021 12:01, Nonspecific T wave abnormality, worse in Anterolateral leads Confirmed by Julian Morejon ([id number]) on 03/27/2021 7:44:53 AM Referred By: REFERRED SELF Confirmed By:Julian Morejon
--- NOTE | 2021-03-27 08:01 | Cardiology Progress Note ---
Date of Service March 27, 2021 Assessment & Plan (1) Acute on chronic HFrEF (heart failure with reduced ejection fraction): Significantly reduced with an LVEF of 25-30, for unknown reason patient was not on any GDMT, has not followed with cardio for quite some time. x1 month of shortness of breath and edema. Not normally on PO diuretic at home. (2) SOB (shortness of breath): (3) Hypoxia: (4) Ambulatory dysfunction: (5) Cardiac defibrillator in place: (6) Coronary artery disease: (7) Cerebrovascular disease: Cardiac function remains significantly reduced with an LVEF of 25-30, for unknown reason patient was not on any GDMT despite this. She cannot remember the last time she saw a daycare director before this hospital stay. Will continue to institute GDMT. Patient appears euvolemic on exam. 1. Continue metoprolol succinate 25 mg daily today 2. Discontinue IV push Lasix and transition patient to 40 mg PO Lasix BID, with the first dose this afternoon, repeat BMP today to check kidney function and electrolytes. Supplement potassium as appropriate. 3. Will attempt to add Lisinopril 5 mg to patient's HF regime- continue daily BMP checks Ideally, the patient should also be on an ACEI, evidence-based beta-douglas, spironolactone and loop diuretics as necessary. Admission and Anticipated Discharge Date Admission Date: March 25, 2021 Supervising Physician Co-Signing Physician Notes I have seen and evaluated the patient. I have reviewed the medical record and discussed the case with the nurse practitioner. I agree with transitioning the patient from IV Lasix to oral dosing. Otherwise the patient is doing well and stable. Probably best to start some sort of planning for after discharge. Subjective Upon entrance to the room patient appeared comfortable laying supine in bed eating breakfast, HOB about 20 degrees- stated that this is how she feels most comfortable. She denies any shortness of breath or chest pains. Notes that her hands and legs are significancy less swollen since receiving the IV lasix. She currently has a fermin cath in place. Patient has been bed bound over the last 2 years due to a femur fracture. Notes that she uses a Renny lift at home. Her tends to her, along with 5-6 care givers. She does not get out of bed to use the restroom, uses briefs during the day and a female extrnal cath at night. Blood pressure today is stable, HR in the low 60s. Tele reviewed. SR with a 1st degree AVB noted. No significant ectopy over night, no pasuses. Weight is down to 110 kg (112 kg yesterday). She is about 2.5 L negative. Patient is currently maintained on metoprolol succinate 25 mg daily and lasix 40 mg IV twice daily. Past medical history as per my previous consultation in 2019: 1. Coronary artery disease with questionable history of OH. 2. Status post ICD placement. 3. Colon cancer. 4. Hypertension. 5. History of CVA. 6. Poor historian 7. Cardiomyopathy of unclear etiology, EF 25 to 30%. Review of Systems Review of Systems: All systems reviewed & are unremarkable except as noted in HPI & below Physical Exam Physical Exam: General: Awake, alert and oriented x 3. No acute distress. HEENT: Normocephalic, atraumatic. Pupils equal, round and reactive to light and accommodation. Extraocular muscles are intact. Anicteric sclera. Moist mucous membranes. Neck: No JVD. No bruit. Cardiovascular: Regular. Positive S-4. Normal S-1 and S-2. No S-3. 3/6 mid to late systolic ejection murmur, greatest at the right sternal border, second intercostal space with radiation to the bilateral carotids. No rubs. Pulmonary: Clear to auscultation bilaterally. No rales, rhonchi, or wheezing. Abdomen: Bowel sounds x 4, soft. No rebound, guarding or tenderness. No organomegaly. Extremities: No edema. No clubbing, cyanosis or edema. +2 pedal pulses bilaterally. Skin: Warm and dry. Results & Data ([facility]) Vital Signs (Past 12 Hours) Vital Signs Temp Pulse Pulse Resp BP Pulse Ox 03/27/21 04:10 36.8 C 62 20 110/64 92 03/27/21 01:54 71 03/27/21 00:07 36.6 C 71 19 103/66 94
[2021-03-27] MEDS: ENOXAPARIN INJ 40 MG/0.4 ML SYR SQ SCH ×2 (09:07→20:12)
[2021-03-27] MEDS: METOPROLOL SUCC 25MG EXT REL TAB PO SCH (09:08)
[2021-03-27] MEDS: FUROSEMIDE 40 MG in SYRINGE 0 ML IV SCH (09:08)
[2021-03-27] MEDS: POTASSIUM CHLORIDE CRTAB 20 MEQ TABCR PO SCH (09:08)
[2021-03-27] MEDS: lisinopril 5 MG TAB PO SCH (10:56)
[2021-03-27] MEDS: DICLOFENAC SOD 1% GEL 100 GM TUBE EXT SCH (10:56)
[2021-03-27 10:58] LABS: Calcium 8.6 mg/dl (8.5-10.1); Est GFR (African American) 101.2 ml/min; Est GFR (Non-African American) 87.3 ml/min; Potassium 3.6 mmol/L (3.5-5.1)
--- NOTE | 2021-03-27 11:37 | Electrocardiogram Report ---
Test Reason : Blood Pressure : / mmHG Vent. Rate : 072 BPM Atrial Rate : 072 BPM P-R Int : 196 ms QRS Dur : 138 ms QT Int : 440 ms P-R-T Axes : 044 -27 115 degrees QTc Int : 481 ms Normal sinus rhythm Non-specific intra-ventricular conduction block Poor R wave progression, consider anterior OH vs. lead placement vs. LVH Nonspecific T wave abnormality Lateral leads Abnormal ECG When compared with ECG of 26-MAR-2021 05:59, Nonspecific T wave abnormality no longer evident in Inferior leads Confirmed by Julian Morejon ([id number]) on 03/27/2021 11:37:09 AM Referred By: REFERRED SELF Confirmed By:Julian Morejon
--- NOTE | 2021-03-27 12:04 | Hospitalist Progress Note ---
Date of Service March 27, 2021 Assessment & Plan (1) Acute on chronic HFrEF (heart failure with reduced ejection fraction): Euvolemic now per cardiology who is transitioning her to PO Lasix from IV. Also, they are placing her on GDMT and monitoring closely. She has a long stint of time where she has not been on medications or followed with a Cashier [employer]. She states it is too difficult and expensive to move her and go see a specialist at this point. Telehealth visits aren't an option because they only have a landline and no computer. (2) Ischemic cardiomyopathy: (3) Cardiac defibrillator in place: (4) Coronary artery disease: cont medical therapy. Noted intolerance of statins in chart. (5) Ambulatory dysfunction: 2/2 to R femur fx in 2019 bedbound PT recommends returning home with current support in place and continuing paul lift PRN. 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 (8) DVT prophylaxis: SQ Lovenox 40mg q12h Dispo: PCU PCP: Kwadwo Sterling PA, case management consulted FULL CODE [facility] and Anticipated Discharge Date Admission Date: March 25, 2021 Subjective 80 yo F with h/o ICM and EF 25% for 14 yrs, s/p ICD placement. She reports a h/o [place] at that time and received a stent. Approx 6 months later she had an in- stent stenosis and then collaterals were created. She is a patient of [facility]. She reports never taking ASA, statin, or beta douglas. She has taken lisinopril in the past and this was stopped 2/2 hypotension. She reports feeling better overall since admission and states "now I can breathe!" She reports being bed-bound for 2 years . Review of Systems Review of Systems: All systems reviewed & are unremarkable except as noted in Subjective Physical Exam Physical Exam: CONSTITUTIONAL: morbidly obese supine patient in NAD, vitals as above, generally well-appearing EYES: normal conjunctivae, no scleral icterus ENT: external ear and nose normal, MMM RESPIRATORY: clear to auscultation bilaterally, no crackles, rales or wheezes, normal respiratory effort CARDIOVASCULAR: regular rate and rhythm, S1 and 2 heard without murmurs, gallops or rubs, no JVD, no peripheral edema GASTROINTESTINAL: soft, nontender, nondistended, ostomy in place. MUSCULOSKELETAL: generalized weakness, head is normocephalic and atraumatic SKIN: warm and dry NEUROLOGIC: CN 2-12 grossly intact, normal cognition, normal speech, no tremor, no gross deficits. PSYCHIATRIC: alert cooperative and oriented to person, place and time. Results & Data Results & Data ([facility]) Vital Signs (Past 12 Hours) Vital Signs Temp Pulse Pulse Resp BP Pulse Ox 03/27/21 08:15 36.5 C 77 21 109/66 91 03/27/21 08:00 71 03/27/21 04:10 36.8 C 62 20 110/64 92 03/27/21 01:54 71 03/27/21 00:07 36.6 C 71 19 103/66 94 Laboratory Results [facility] 03/27/21 06:54 Sodium 135 L Potassium 3.6 Chloride 99 Carbon Dioxide 30 BUN 20 H Creatinine 0.60 Glucose 117 H Calcium 8.6 Medications Administered Current Inpatient Medications Acetaminophen (Acetaminophen 325 Mg Tab) 650 mg PO Q6H PRN PRN Reason: Fever/pain Stop: 04/26/21 00:38 Last Admin: 03/27/21 10:56 Dose: 650 mg Documented by: Al Hydrox/Mg Hydrox/Simethicone (Aluminum/Magnesium Susp 30 Ml Udc) 15 ml PO Q4H PRN PRN Reason: Dyspepsia Stop: 04/24/21 14:51 Diclofenac Sodium (Diclofenac Sod 1% Gel 100 Gm Tube) 2 gm EXT PRN [facility] Stop: 04/25/21 10:44 Last Admin: 03/27/21 10:56 Dose: 2 gm Documented by: Enoxaparin Sodium (Enoxaparin Inj 40 Mg/0.4 Ml Syr) 40 mg SQ Q12 [facility] Stop: 04/24/21 15:04 Last Admin: 03/27/21 09:07 Dose: 40 mg Documented by: Furosemide (Furosemide 40 Mg Tab) 40 mg PO [id number] [facility] Stop: 04/26/21 16:59 Levothyroxine Sodium (Levothyroxine Sodium 75 Mcg Tablet) 75 mcg PO DAILYBB [facility] Stop: 04/25/21 06:29 Last Admin: 03/27/21 06:30 Dose: 75 mcg Documented by: Lisinopril (Lisinopril 5 Mg Tab) [address] [facility] Stop: 04/26/21 10:29 Last Admin: 03/27/21 10:56 Dose: 5 mg Documented by: Magnesium Hydroxide (Magnesium Hydroxide Susp 30 Ml Udc) 30 ml PO Q12H PRN PRN Reason: Constipation Stop: 04/24/21 14:51 Metoprolol Succinate (Metoprolol Succ 25mg Ext Rel Tab) [address] [facility] Stop: 04/25/21 16:59 Last Admin: 03/27/21 09:08 Dose: 25 mg Documented by: Ondansetron HCl (Ondansetron Inj 2 Mg/Ml 2 Ml Vial) 4 mg IV Q6H PRN PRN Reason: Nausea Stop: 04/24/21 14:51 Polyethylene Glycol (Polyethylene (Miralax) 17 Gm Pack) 17 gm PO DAILY PRN PRN Reason: Constipation Stop: 04/24/21 14:51 Potassium Chloride (Potassium Chloride Crtab 20 Meq Tabcr) [address] [facility] Stop: 04/24/21 15:14 Last Admin: 03/27/21 09:08 Dose: 20 meq Documented by:
[2021-03-27] MEDS: FUROSEMIDE 40 MG TAB PO SCH (16:24)
[2021-03-28] MEDS: LEVOTHYROXINE SODIUM 75 MCG TABLET PO SCH (06:04)
[2021-03-28 07:12] LABS: BUN Creatinine Ratio 50.8 (10-20); Calcium 8.8 mg/dl (8.5-10.1); Est GFR (African American) 96.2 ml/min; Magnesium 2.3 mg/dl (1.8-2.4); Potassium 3.9 mmol/L (3.5-5.1)
[2021-03-28] MEDS: FUROSEMIDE 40 MG TAB PO SCH (08:49)
[2021-03-28] MEDS: ENOXAPARIN INJ 40 MG/0.4 ML SYR SQ SCH ×2 (08:50→19:45)
[2021-03-28] MEDS: METOPROLOL SUCC 25MG EXT REL TAB PO SCH (08:50)
[2021-03-28] MEDS: lisinopril 5 MG TAB PO SCH (08:50)
[2021-03-28] MEDS: POTASSIUM CHLORIDE CRTAB 20 MEQ TABCR PO SCH (08:50)
[2021-03-28] MEDS: ACETAMINOPHEN 325 MG TAB PO PRN ×2 (08:55→19:43)
[2021-03-28] MEDS: DICLOFENAC SOD 1% GEL 100 GM TUBE EXT SCH (10:42)
--- NOTE | 2021-03-28 11:11 | Cardiology Progress Note ---
Date of Service March 28, 2021 Assessment & Plan (1) Acute on chronic HFrEF (heart failure with reduced ejection fraction): (2) SOB (shortness of breath): (3) Hypoxia: (4) Ambulatory dysfunction: (5) Cardiac defibrillator in place: (6) Coronary artery disease: (7) Cerebrovascular disease: The patient is tolerating guideline directed medications. She needs to remain on these medications even though her blood pressure is marginal. I will decrease her Lasix to 40 mg daily. Discharge planning should start. Admission and Anticipated Discharge Date Admission Date: March 25, 2021 Subjective The patient has no new cardiac complaints today. Review of Systems Review of Systems: All systems reviewed & are unremarkable except as noted in Subjective Physical Exam Physical Exam: General: no acute distress and stated age Head: normocephalic, no masses, lesions, tenderness or abnormalities Eyes: conjunctiva are pink and non-injected, sclera clear Neck: supple, no adenopathy, no bruits, normal jugular venous pulse, no hepatojugular reflux Chest: normal shape and normal respiratory effort Lungs: clear to auscultation and percussion Cardiac Exam: - regular rate & rhythm, no murmurs gallops or rubs - normal S1, normal S2 Pulses: 2(+) throughout Abdomen: abdomen soft, non-tender, no abnormal masses and no hepatosplenomegaly Musculoskeletal: no gait disturbance, no joint inflammation, no deforming arthritis Extremities: no edema and no cyanosis Neuro: grossly normal exam Results & Data ([facility]) Vital Signs (Past 12 Hours) Vital Signs Temp Pulse Pulse Resp BP Pulse Ox 03/28/21 08:24 36.7 C 71 22 103/69 92 03/28/21 07:51 69 03/28/21 04:54 66 03/28/21 04:09 36.8 C 69 17 101/65 94 03/27/21 23:13 36.2 C L 70 18 90/60 L 95 Laboratory Results Laboratory Results - last 24 hr 03/28/21 06:22 Sodium 135 L Potassium 3.9 Chloride 99 Carbon Dioxide 30 Anion Gap 7.0 BUN 36 H D Creatinine 0.70 Est Cr Clr Drug Dosing 75.0 Est GFR ( Amer) 96.2 Est GFR (Non-Af Amer) 83.0 BUN/Creatinine Ratio 50.8 H Glucose 115 H Calcium 8.8 Magnesium 2.3 Medications Administered Current Inpatient Medications Acetaminophen (Acetaminophen 325 Mg Tab) 650 mg PO Q6H PRN PRN Reason: Fever/pain Stop: 04/26/21 00:38 Last Admin: 03/28/21 08:55 Dose: 650 mg Documented by: Al Hydrox/Mg Hydrox/Simethicone (Aluminum/Magnesium Susp 30 Ml Udc) 15 ml PO Q4H PRN PRN Reason: Dyspepsia Stop: 04/24/21 14:51 Diclofenac Sodium (Diclofenac Sod 1% Gel 100 Gm Tube) 2 gm EXT PRN [facility] Stop: 04/25/21 10:44 Last Admin: 03/28/21 10:42 Dose: 2 gm Documented by: Enoxaparin Sodium (Enoxaparin Inj 40 Mg/0.4 Ml Syr) 40 mg SQ Q12 [facility] Stop: 04/24/21 15:04 Last Admin: 03/28/21 08:50 Dose: 40 mg Documented by: Furosemide (Furosemide 40 Mg Tab) 40 mg PO DAILY [facility] Stop: 04/28/21 08:59 Levothyroxine Sodium (Levothyroxine Sodium 75 Mcg Tablet) 75 mcg PO DAILYBB [facility] Stop: 04/25/21 06:29 Last Admin: 03/28/21 06:04 Dose: 75 mcg Documented by: Lisinopril (Lisinopril 5 Mg Tab) 5 mg PO [facility] Stop: 04/26/21 10:29 Last Admin: 03/28/21 08:50 Dose: 5 mg Documented by: Magnesium Hydroxide (Magnesium Hydroxide Susp 30 Ml Udc) 30 ml PO Q12H PRN PRN Reason: Constipation Stop: 04/24/21 14:51 Metoprolol Succinate (Metoprolol Succ 25mg Ext Rel Tab) 25 mg PO [facility] Stop: 04/25/21 16:59 Last Admin: 03/28/21 08:50 Dose: 25 mg Documented by: Ondansetron HCl (Ondansetron Inj 2 Mg/Ml 2 Ml Vial) 4 mg IV Q6H PRN PRN Reason: Nausea Stop: 04/24/21 14:51 Polyethylene Glycol (Polyethylene (Miralax) 17 Gm Pack) 17 gm PO DAILY PRN PRN Reason: Constipation Stop: 04/24/21 14:51 Potassium Chloride (Potassium Chloride Crtab 20 Meq Tabcr) 20 meq PO [facility] Stop: 04/24/21 15:14 Last Admin: 03/28/21 08:50 Dose: 20 meq Documented by:
--- NOTE | 2021-03-28 22:18 | Hospitalist Progress Note ---
Date of Service March 28, 2021 Assessment & Plan (1) Acute on chronic HFrEF (heart failure with reduced ejection fraction): Compensated. Doing well on recently instituted GDMT. Cont Toprol XL 25mg PO qAM, lisinopril 5mg PO daily, and lasix 40mg PO daily. Cont daily weights, strict I/Os and low salt diet. (2) Ischemic cardiomyopathy: as above. (3) Cardiac defibrillator in place: (4) Coronary artery disease: cont medical therapy. Noted intolerance of statins in chart. (5) Ambulatory dysfunction: 2/2 to R femur fx in 2019 bedbound PT recommends returning home with current support in place and continuing paul lift PRN. 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 (8) DVT prophylaxis: SQ Lovenox 40mg q12h Full Code Dispo: to home in next 1-2 days. PCP: Kwadwo Sterling PA, case management consulted Kourtney Galo DO [facility] Admission and Anticipated Discharge Date Admission Date: March 25, 2021 Subjective 80 yo F with h/o ICM and EF 25% for 14 yrs, s/p ICD placement. She reports a h/o CT at that time and received a stent. Approx 6 months later she had an in- stent stenosis and then collaterals were created. She is a patient of [email or web address]. She reports never taking ASA, statin, or beta douglas. She has taken lisinopril in the past and this was stopped 2/2 hypotension. She denies any chest pain, SOB or any new issues today and is eager to go home. She denies any issues with the new medications given to her this stay. Review of Systems Review of Systems: All systems reviewed & are unremarkable except as noted in Subjective Physical Exam Physical Exam: CONSTITUTIONAL: morbidly obese supine patient in NAD, vitals as above, generally well-appearing EYES: normal conjunctivae, no scleral icterus ENT: external ear and nose normal, MMM RESPIRATORY: clear to auscultation bilaterally, no crackles, rales or wheezes, normal respiratory effort CARDIOVASCULAR: regular rate and rhythm, S1 and 2 heard without murmurs, gallops or rubs, no JVD, no peripheral edema GASTROINTESTINAL: soft, nontender, nondistended, ostomy in place. MUSCULOSKELETAL: generalized weakness, head is normocephalic and atraumatic SKIN: warm and dry NEUROLOGIC: CN 2-12 grossly intact, normal cognition, normal speech, no tremor, no gross deficits. PSYCHIATRIC: alert cooperative and oriented to person, place and time. Results & Data Results & Data ([facility]) Vital Signs (Past 12 Hours) Vital Signs Temp Pulse Pulse Resp BP BP Pulse Ox 03/28/21 19:28 36.6 C 73 18 86/53 L 92 03/28/21 16:18 36.5 C 72 22 105/66 91 03/28/21 16:00 63 03/28/21 12:13 36.7 C 75 24 101/63 91 Laboratory Results BMP 03/28/21 06:22 Sodium 135 L Potassium 3.9 Chloride 99 Carbon Dioxide 30 BUN 36 H D Creatinine 0.70 Glucose 115 H Calcium 8.8 Medications Administered Current Inpatient Medications Acetaminophen (Acetaminophen 325 Mg Tab) 650 mg PO Q6H PRN PRN Reason: Fever/pain Stop: 04/26/21 00:38 Last Admin: 03/28/21 19:43 Dose: 650 mg Documented by: Al Hydrox/Mg Hydrox/Simethicone (Aluminum/Magnesium Susp 30 Ml Udc) 15 ml PO Q4H PRN PRN Reason: Dyspepsia Stop: 04/24/21 14:51 Diclofenac Sodium (Diclofenac Sod 1% Gel 100 Gm Tube) 2 gm EXT PRN [facility] Stop: 04/25/21 10:44 Last Admin: 03/28/21 10:42 Dose: 2 gm Documented by: Enoxaparin Sodium (Enoxaparin Inj 40 Mg/0.4 Ml Syr) 40 mg SQ Q12 [facility] Stop: 04/24/21 15:04 Last Admin: 03/28/21 19:45 Dose: 40 mg Documented by: Furosemide (Furosemide 40 Mg Tab) 40 mg PO DAILY [facility] Stop: 04/28/21 08:59 Levothyroxine Sodium (Levothyroxine Sodium 75 Mcg Tablet) 75 mcg PO DAILYBB [facility] Stop: 04/25/21 06:29 Last Admin: 03/28/21 06:04 Dose: 75 mcg Documented by: Lisinopril (Lisinopril 5 Mg Tab) 5 mg PO QAM [facility] Stop: 04/26/21 10:29 Last Admin: 03/28/21 08:50 Dose: 5 mg Documented by: Magnesium Hydroxide (Magnesium Hydroxide Susp 30 Ml Udc) 30 ml PO Q12H PRN PRN Reason: Constipation Stop: 04/24/21 14:51 Metoprolol Succinate (Metoprolol Succ 25mg Ext Rel Tab) [facility] Stop: 04/25/21 16:59 Last Admin: 03/28/21 08:50 Dose: 25 mg Documented by: Ondansetron HCl (Ondansetron Inj 2 Mg/Ml 2 Ml Vial) 4 mg IV Q6H PRN PRN Reason: Nausea Stop: 04/24/21 14:51 Polyethylene Glycol (Polyethylene (Miralax) 17 Gm Pack) 17 gm PO DAILY PRN PRN Reason: Constipation Stop: 04/24/21 14:51 Potassium Chloride (Potassium Chloride Crtab 20 Meq Tabcr) 20 meq PO [facility] Stop: 04/24/21 15:14 Last Admin: 03/28/21 08:50 Dose: 20 meq Documented by:
[2021-03-29] MEDS: LEVOTHYROXINE SODIUM 75 MCG TABLET PO SCH (06:07)
[2021-03-29 06:16] LABS: Hematocrit (blood only) 39.4 % (37-47); Hemoglobin 12.7 g/dL (12.0-16.0); Mean Corpuscular Hemoglobin 28.7 pg (25-34); Mean Corpuscular Hgb Conc 32.2 g/dL (32-36); Mean Corpuscular Volume 89.1 fL (80-100); Mean Platelet Volume 9.5 fL (7.4-10.4); Platelet Count 246 K/uL (130-400); RDW Coefficient of Variation 17.5 % (11.5-14.5); RDW Standard Deviation 57.6 fL (36.4-46.3); Red Blood Count 4.42 M/uL (4.2-5.4); White Blood Count 7.87 K/uL (4.8-10.8)
[2021-03-29 06:51] LABS: Creatinine Clr Calc Pharmacy 72.8 ml/min; Est GFR (Non-African American) 80.2 ml/min
[2021-03-29] MEDS: lisinopril 5 MG TAB PO SCH (08:58)
[2021-03-29] MEDS: METOPROLOL SUCC 25MG EXT REL TAB PO SCH (08:58)
[2021-03-29] MEDS: POTASSIUM CHLORIDE CRTAB 20 MEQ TABCR PO SCH (08:58)
[2021-03-29] MEDS ORDERED: FUROSEMIDE 40 MG TAB PO SCH (09:00)
[2021-03-29] MEDS: ENOXAPARIN INJ 40 MG/0.4 ML SYR SQ SCH (09:00)
[2021-03-29] MEDS: ACETAMINOPHEN 325 MG TAB PO PRN (09:04)
[2021-03-29] MEDS: DICLOFENAC SOD 1% GEL 100 GM TUBE EXT SCH (11:00)
--- NOTE | 2021-03-29 14:40 | Discharge Summary ---
Date of Service March 29, 2021 Admission HPI Per Admitting Provider This is a 80 yr old F who has a significant PMH of Chronic HFrEF, AICD in place, hx of CVA, CAD with remote hx of PCI in past and hypothyroidism who presents to ED 2/2 to SOB and cough x 2 weeks. Pt was known to our service back in 2018 when she had a prolonged hospitalization 2/2 to fall and R femur fx s/p ORIF. At that time she was on no cardiac medications and given hx of CAD was placed on asa, statin, metoprolol, lasix, aldactone and KCL. Echo at the time demonstrated EF 25-30% with akinesis of inferior and lateral diaz, global hypokinesis, AV sclerosis and grade 1 diastolic dysfunction. Her ASA was stopped due to vaginal bleeding during admission and statin was refused. Pt comes into ED today again on no cardiac medications, just levothyroxine. Her PCP is Dr. Romero and she, "can't remember," who her doctor of nursing practice is. She admits to being SOB for 1.5 days. She also c/o productive cough of clear sputum for 2 weeks. SOB got progressively worse over night, +orthopnea, increased lower ext swelling, and she states, "I came here because I thought I was having a heart attack." She continues to be bedbound ever since fracturing her femur and has since been unable to ambulate. She denies f/c/s, dizziness, lightheaded, chest pain, hemopytsis, palpitations, n/v/d, abdominal pain, melena, hematochezia, increased urg/freq with urination or dysuria. She is incontinent of urine and uses a brief. She does not monitor her weight on a regular basis and states her appetite has been good. She states she is trying to lose weight and avoids salt, sugar and breads. En route pt was found to be hypoxic by EMS with O2 sats in the 80s requiring 4L of supplemental O2. In ED CBC and CMP generally unremarkable, except for Na 135, bun 16, cr 0.55, glucose 133, probnp [id number]. Her COVID screen was negative. She had her first covid vaccine yesterday. CXR shows pulmonary edema and trace pleural effusions. She was ordered nitro paste and 60mg IV lasix in ED, but has not yet been administered. Admission Exam Per Admitting Provider Constitutional: Morbidly obese, chronic ill appearing F, vitals as above, NAD, sitting up in bed, pleasant, conversing easily Head: Normocephalic, Atraumatic Eyes: PERRL, conjunctivae normal, anicteric sclerae ENMT: external ear and nose normal, oropharynx normal Neck: trachea midline, no thyromegaly normal visual inspection Respiratory: normal respiratory effort, decreased bs at bases and poor inspiratory effort, distant lung sounds given body habitus, lungs otherwise clear to auscultation, no wheeze, rales, rhonchi. Normal insp/exp effort, no accessory muscle use Cardiovascular: distant heart sounds 2/2 to body habitus, RRR, no murmur appreciated, b/l lower ext pitting edema/obese lower ext, no erythema, warmth, negative homans Vessels: no JVD or carotid bruit Chest: normal inspection of chest Abdomen: obese abd, normal bowel sounds, soft, nontender, no hepatosplenomegaly Musculoskeletal: no cyanosis or clubbing, pt with very poor bed mobility, unable to assess strength Skin: no rashes, warm and dry normal turgor Neurologic: PERRL, EOMI, accommodation nl, no face palsy, no dysarthria CN's II-XI intact bilaterally and moves all extremities Psychiatric: A+Ox3, euthymic affect : deferred Principal Diagnosis acute on chronic heart failure with reduced ejection fraction ischemic cardiomyopathy Discharge Exam CONSTITUTIONAL: morbidly obese supine patient in NAD, vitals as above, generally well-appearing EYES: normal conjunctivae, no scleral icterus ENT: external ear and nose normal, MMM RESPIRATORY: clear to auscultation bilaterally, no crackles, rales or wheezes, normal respiratory effort CARDIOVASCULAR: regular rate and rhythm, S1 and 2 heard without murmurs, gallops or rubs, no JVD, no peripheral edema GASTROINTESTINAL: soft, nontender, nondistended, ostomy in place. MUSCULOSKELETAL: generalized weakness, head is normocephalic and atraumatic SKIN: warm and dry NEUROLOGIC: CN 2-12 grossly intact, normal cognition, normal speech, no tremor, no gross deficits. PSYCHIATRIC: alert cooperative and oriented to person, place and time. Discharge Data Allergies Allergy/AdvReac Type Severity Reaction Status Date / Time naproxen Allergy feet Unverified 03/25/21 12:24 swelling acetaminophen AdvReac Unknown NAUSEA Verified 03/25/21 12:24 oxycodone AdvReac Unknown NAUSEA Verified 03/25/21 12:24 clonidine AdvReac NAUSEA Verified 03/25/21 12:24 Consultations 03/25/21 13:36 ED Decision to Admit Stat 03/25/21 14:10 Consult Cardiology Routine Hospital Course (1) Acute on chronic HFrEF (heart failure with reduced ejection fraction): Compensated after diuresis. Doing well on recently instituted GDMT. Overall she had a net 4L out of I/Os tracked and a decrease in 4kg of weight measured using built in bedscale. She reported feeling improved since admission. Cont Toprol XL 25mg PO qAM, lisinopril 5mg PO daily, and lasix 40mg PO daily. Cont daily weights, strict I/Os and low salt diet. Close outpatient cardiology followup recommended. (2) Ischemic cardiomyopathy: as above. (3) Cardiac defibrillator in place: (4) Coronary artery disease: cont medical therapy. Noted intolerance of statins in chart. (5) Ambulatory dysfunction: 2/2 to R femur fx in 2019 bedbound PT recommends returning home with current support in place and continuing paul lift PRN. This is her baseline. 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, low albumin heart healthy, low na diet recommend diet/lifestyle modifications Total Time Total Time Spent Total Time Spent (In Minutes): 60 Total Time Includes: Examination of the Patient, Discharge Planning, Medication Reconciliation and Communication With Other Providers Discharge Plan Discharge Items Patient Disposition: Home - Self-Care Reason For Visit: ACUTE/CHRONIC HFrEF Discharge Diagnosis: acute on chronic heart failure with reduced ejection fraction ischemic cardiomyopathy Condition on Discharge: Fair Activity: Resume your previous activity Non-emergency contact: Primary Care Provider Call non-emergency contact if: you have any medication questions, your symptoms worsen, your pain is not controlled, your pain is worsening, your pain is unusual for you, your pain is concerning for you and you have a fever Follow-up/Referrals: Deyanira Romero MD [Primary Care Provider] - Diet: Low Sodium (2gm) Addtl Attending Provider Instructions: Please take all medications as instructed on discharge list below. You are being given three new medications to take for your heart. The doses of these may need to be adjusted, so close followup with primary care is recommended in one week. After starting lisinopril, it is recommended that you have nonfasting bloodwork in 2-4 weeks. Cardiology follow-up is recommended. It was a pleasure taking care of you! Please call if you have any questions or problems. You can reach a [facility] hospitalist on duty at [facility] 24 hours a day by calling [phone]. Take care of yourself. Kourtney Galo DO [facility] Addtl Skip Tender Provider Instructions: Call 911 and go to the Emergency Room if: * You have tightness or pain in your chest that does not go away with rest or Nitroglycerin * You are very short of breath even with rest Call your doctor if any of the following symptoms or problems start or get worse: * Shortness of breath or difficulty breathing * Wake up at night short of breath * Chest pain * Cough * Swelling of your hands, fee, or legs * More fatigued or tired with your normal activity * Palpitations - sudden fast heart beats WEIGHT * Weigh yourself every morning after using the bathroom. * Use the same scale. * Wear the same amount of clothing. * Write your weight down on your chart. * Call your doctor if you gain more than 2-3 pounds in 1-2 days. MEDICATIONS * Use this discharge instruction sheet for instructions. * Take your medications at the time your doctor ordered. * Do not skip a dose of your medicines. * If you miss a dose of medicine, take as soon as possible, but DO NOT DOUBLE A DOSE. * Read your medicine information when you get home. * Know all of the side effects of your medicine. * Call your doctor's office if you have any side effects. * Be sure all of your doctors know what medicine and herbs you take (including cold, flu, and herbal medicine). * Pain Medicine: If you do not get relief from your pain, please call your doctor for help. Take the following with you to your follow-up doctor appointments: * Weight Chart * Medication List * List of questions Do not drink excessive alcohol, beer or wine. Pending Studies at Discharge: No Stand-Alone Forms: My [facility] Medications and DC Order Prescriptions: New lisinopril 10 mg tablet 10 mg PO DAILY Qty: 30 RF: 0 metoprolol succinate 25 mg Tablet Extended Release 24 Hr 25 mg PO QAM Qty: 30 RF: 0 furosemide 40 mg Tablet 40 mg PO DAILY Qty: 30 RF: 0 Continued levothyroxine 75 mcg tablet 75 mcg PO QAM RF: 0 Discharge Orders: Discharge Order (Routine); Ordered 03/29/21 Ordered By: Kourtney Galo Admission Data Admit Date/Time: 03/25/21 13:41 Attending Provider: Kourtney Galo Admit Provider: Rick Munoz Primary Care Provider: Deyanira Romero Other Providers: Fawad Gamino Michael G. Other Interventions: Discharge Summary Assessment (RN) Last Done: 03/29/21 14:49
== END 2021-03-29 16:15 | disposition home or self-care (01) | DRG 292 ==
LOC: ED 11:25 → 2S 13:41 → SUATTDRO 13:41 → 2S 14:31